=== PATIENT | female | born 1970 | race Caucasian/White ===

== ENCOUNTER 2018-06-07 18:41 | Inpatient (IN) | payer OTHER ==
[~2018-06-07] VITALS: Ht 160 cm; Wt 80.3 kg
[~2018-06-07 18:41] MED LIST: ACIPHEX 20 MG T20 MG PO; ADULT LOW DOSE81 MG PO; ALBUTEROL2.5 MG/31 INH; AMOXICILLIN 50500 M1 PO; AMOXICILLIN 50500 MG PO; AMOXICILLIN875 MG PO; ASPIR 8181 M1 PO; ASPIRIN81 M2; ATENOLOL 25 MG25 M1; ATIVAN0.5 MG; ATIVAN0.5 MG PO; ATIVAN2 MG PO; CLEOCIN100 MG VG; COUMADIN 2.5MG2.5 M1 PO; DECONGESTANT30 MG PO; FLEXERIL PO; GUAIATUSSI100 MG/5 M PO; IBUPROFEN 800800 M1 PO; IBUPROFEN 800800 MG PO; K-DUR 20 MEQ T20 MEQ PO; LISINOPRIL10 MG PO; LORAZEPAM; METHYLERGONOVI0.2 MG PO; NAPROSYN250 MG PO; NAPROSYN375 MG PO; NAPROSYN500 MG PO; OXYCODONE HCL5 M1 PO; PREDNISONE50 MG PO; PREVACID 30MG C30 M1 PG; PROVENTIL IH; RANITIDINE; ROBAXIN 750 MG750 M1 PO; TUSSIONEX PENN473 ML PO; ULTRAM 50MG TAB50 MG PO; VENTOLIN17 GM INH; VICOPROFEN 2001 EACH PO; ZANAFLEX4 M1 PO; ZANTAC 150MG T150 M1; ZPAK PO
[2018-06-07 18:53] VITALS: BP 157/95
[2018-06-07 19:18] LABS: ABSOLUTE BASOPHILS 0.1 thou/uL (0.0-0.2); ABSOLUTE EOSINOPHILS 0.1 thou/uL (0.0-0.7); ABSOLUTE LYMPHOCYTES 2.1 thou/uL (0.8-5.3); ABSOLUTE MONOCYTES 0.5 thou/uL (0.0-1.2); ABSOLUTE NEUTROPHILS 5.4 thou/uL (1.6-8.1); BASOPHILS 0.7 %; EOSINOPHILS 1.2 %; HEMATOCRIT 43.3 % (37.0-47.0); HEMOGLOBIN 14.7 gm/dL (12.0-15.0); LYMPHOCYTES 25.8 %; MCH 31.4 pg (26.0-34.0); MCV 92.5 fL (80.0-100.0); MONOCYTES 5.9 %; MPV 8.3 fl. (7.2-11.1); NUCLEATED RBCS 0 /100WBC; PLATELET COUNT* 253 thou/uL (150-400); POLYS 66.4 %; RBC 4.68 mil/uL (4.20-5.00); RDW-CV 13.2 % (10.5-14.5); WBC 8.2 thou/uL (4.0-11.0)
[2018-06-07 19:27] LABS: CALCIUM 8.5 mg/dL (8.5-10.1); CREATININE 0.9 mg/dL (0.6-1.3); POTASSIUM 3.3 mmol/L (3.5-5.1)
[2018-06-07 19:37] LABS: ALBUMIN 3.7 g/dL (3.4-5.0); MAGNESIUM 2.1 mg/dL (1.8-2.4); TOTAL BILIRUBIN 0.7 mg/dL (<0.1-1.0); TOTAL PROTEIN 7.3 g/dL (6.4-8.2); TROPONIN-I LEVEL 0.46 ng/mL (<0.06)
[2018-06-07 20:38] VITALS: BP 186/92
[2018-06-07 21:01] VITALS: BP 179/96
[2018-06-07 21:58] VITALS: BP 145/74
[2018-06-08] VITALS (19 sets, daily range): BP systolic 108–153; BP diastolic 62–87
--- NOTE | 2018-06-08 02:34 | NUR ---
RECEIVED REPORT AND ASSUMED CARE OF PATIENT FROM ER AT 2052. ADMISSION HISTORY AND ASSESSMENT COMPLETED CHARTED. BP ELEVATED UPON INITIAL CHECK, BUT ON RECHECK ONE HOUR LATER, BP WAS WNL. PATIENT ON 2L O2 NC PER CHEST PAIN PROTOCOL, SATS 98%. PATIENT A&OX4. HAD C/O CHEST DISCOMFORT RATED 2-3/10, NOT RADIATING, RELIEVED WITH ONE NITRO. PATIENT NPO FOR CARDIOLOGY CONSULT THIS AM. GOAL IS TO REMAIN FREE OF CHEST PAIN. CALL LIGHT WITHIN REACH
--- NOTE | 2018-06-08 05:11 | NUR ---
PATIENT PROGRESSING TOWARDS GOALS: PATIENT REMAINS FREE OF CHEST PAIN AND DISCOMFORT. PATIENT HAS NOT SLEPT THIS SHIFT BUT STATES SHE "STAYS UP DURING THE NIGHT AND GOES TO SLEEP AROUND 5 AM." HOURLY ROUNDING OBSERVED. CALL LIGHT WITHIN REACH
[2018-06-08 10:36] LABS: ANION GAP 10 mmol/L (7-16); BUN 8 mg/dL (7-18); CALCIUM 8.3 mg/dL (8.5-10.1); CHLORIDE 107 mmol/L (98-107); CO2 26 mmol/L (21-32); CREATININE 0.7 mg/dL (0.6-1.3); GLUCOSE 97 mg/dL (70-99); POTASSIUM 3.4 mmol/L (3.5-5.1); SODIUM 143 mmol/L (136-145)
[2018-06-08 10:37] LABS: APTT 27.6 Seconds (25.0-31.3); INR 1.1; PROTIME 10.4 Seconds (9.20-11.50)
[2018-06-08 10:43] LABS: CHOLESTEROL 226 mg/dL (<200); HDL CHOLESTEROL 35 mg/dL (>40); LDL CHOLESTEROL 147 mg/dL (<100); TC:HDL 6.5 Ratio (Not establshd); TRIGLYCERIDE 221 mg/dL (<150); VLDL 44 mg/dL (<40)
--- NOTE | 2018-06-08 10:45 | NUR ---
ASSUMED RESPONSIBILITY OF PT THIS AM PT IS ALERT AND ORIENTED ANXIOUS PLAN FOR A STENT THIS AFTERNOON SISTER AND SON AT BEDSIDE UNDERSTANDS CARE PLAN AND RESPONSIBILITIES OF PT HRR LSCTA [id number] ABD SOFT AND NONTENDER LBM T-1 DENIES ANY PAIN AT THIS TIME CALL LIGHT IN REACH UP AD SANG
[2018-06-08 10:59] LABS: SERUM ASSESSMENT Clear
--- NOTE | 2018-06-08 12:38 | NUR ---
MET WITH PT TO DISCUSS HOME SITUATION/DC PLANNING. SISTER AND SON IN ROOM ALSO. PT STATES SHE LIVES WITH SPOUSE, SON, MOM AND SISTER. SHE IS INDEPENDENT AND ACTIVE. HAS FOLLOWED WITH MARCELO PERALES BUT STATES SHE IS CONSIDERING CHANGING. PT IS UNINSURED. DISCUSSED RESOURCES AND GAVE INFO ON [facility], FIND A PHYSICIAN, DISABILITY, SCRIPT ASSIST AND COMMUNITY RESOURCES. WILL FOLLOW
--- NOTE | 2018-06-08 19:33 | EKG ---
[place] [address] ELECTROCARDIOGRAM REPORT Name: ARTIE GRANDA Room: [address] IN [facility].#: [id number] Admission: 06/07/18 Attend Phys: Rica Gao MD Discharge: Date of : 68 Report #: [id number] THIS REPORT FOR: //name// [facility] ED Test Date: 2018-06-07 Test Time: 18:51:49 Pat Name: ARTIE GRANDA Department: Room: Gender: F Submarine Diver: OVIDIO : 1970 Requested By: Jd Sow Order Number: [id number] MD: Kai Licona Measurements Intervals [place] Rate: 69 P: 19 KS: 127 QRS: -30 QRSD: 92 T: 133 QT: 404 QTc: 433 Interpretive Statements Sinus rhythm Consider left atrial enlargement Left axis deviation Repol abnrm suggests ischemia, anterolateral Compared to ECG 09/02/2015 15:56:24 Left-axis deviation now present Sinus bradycardia no longer present Possible ischemia still present Electronically Signed On 06-08-2018 19:32:41 CDT by Kai Licona [email or web address] <ELECTRONICALLY SIGNED> By: Kai Licona MD, FACC 06/08/18 193 50 50 Kai Licona MD, FAC /EPI
[2018-06-09] VITALS (8 sets, daily range): BP systolic 109–153; BP diastolic 58–86
--- NOTE | 2018-06-09 04:25 | NUR ---
PATIENT PROGRESSING TOWARDS GOALS: PATIENT AMBULATING WELL SINCE CARDIAC CATH, ALTHOUGH PATIENT DID HAVE ONE EPISODE OF DIZZINESS AND NAUSEA THE FIRST TIME AMBULATING AFTER BEDREST WAS COMPLETE. NAUSEA RELIEVED WITH PRN ZOFRAN AND PATIENT ENCOURAGED TO CALL FOR ASSISTANCE TO GO TO THE BATHROOM. PATIENT VERBALIZES UNDERSTANDING AND AGREES TO DO SO. IVF INFUSING PER ORDERS. LEFT GROIN SITE DRESSING C/D/I WITH NO SIGNS OF BLEEDING OR HEMATOMA. HOURLY ROUNDING OSBERVED. CALL LIGHT WITHIN REACH
[2018-06-09 04:27] LABS: HEMATOCRIT 38.8 % (37.0-47.0); HEMOGLOBIN 13.1 gm/dL (12.0-15.0); MCH 31.9 pg (26.0-34.0); MCHC 33.9 g/dL (28.0-37.0); MCV 94.1 fL (80.0-100.0); MPV 8.7 fl. (7.2-11.1); RBC 4.12 mil/uL (4.20-5.00); RDW-CV 13.3 % (10.5-14.5); WBC 8.6 thou/uL (4.0-11.0)
[2018-06-09 04:40] LABS: ALBUMIN 3.1 g/dL (3.4-5.0); CALCIUM 7.8 mg/dL (8.5-10.1); CREATININE 0.8 mg/dL (0.6-1.3); POTASSIUM 3.6 mmol/L (3.5-5.1); TOTAL BILIRUBIN 0.8 mg/dL (<0.1-1.0)
[2018-06-09 05:11] LABS: TROPONIN-I LEVEL 0.74 ng/mL (<0.06)
--- NOTE | 2018-06-09 05:59 | NUR ---
PATIENT BEGAN HAVING JAW PAIN UPON GETTING BACK TO BED FROM BATHROOM. PATIENT RATES PAIN 5-6/10. VSS. PATIENT DENIES SHORTNESS OF AIR, 2L O2 NC APPLIED FOR COMFORT. PATIENT ANXIOUS. ONE NITRO GIVEN.
[2018-06-09] MEDS ORDERED: BRILINTA90 MG PO (12:57)
[2018-06-09] MEDS ORDERED: NITROGLYCERIN0.4 MG SUBLING (12:58)
[2018-06-09] MEDS ORDERED: LIPITOR40 MG PO (12:58)
--- NOTE | 2018-06-09 19:02 | NUR ---
ASSUMED RESPONSIBILITY OF PT THIS AM PT COMPLAINED OF DIZZY AND LIGHT HEADEDNESS AT TIMES HGB A1C ORDERED AND BLOOD SUGARS STARTED PT DOES NOT EAT MUCH PT DOES NOT LIKE MEAT VEGGIES OR FRUITS BEER BREWER DISCUSSED WITH PT STATIN STARTED COMPLAINED OF SOME CHEST AREA PAIN COULD NOT TELL IF IT WAS ANXIETY OR PRESSSURE/PAIN LIKE PT IS VERY ANXIOUS ABOUT GOING HOME WILL LEAVE TOMORROW FAMILY AT BEDSIDE AND RESOURCES GIVEN TO PT
[2018-06-10 01:58] VITALS: BP 153/86
[2018-06-10 04:00] VITALS: BP 136/66
--- NOTE | 2018-06-10 04:12 | NUR ---
RECEIVED REPORT AND ASSUMED CARE AT 1900. VSS. CARDIAC MONITORING IN PLACE. PT DENIES ANY COMPLAINTS OF PAIN. ASSESSMENT COMPLETED CHARTED. DISCUSSED PLAN OF CARE WITH PT, VERBALIZED UNDERSTANDING. PT UP AND AMBULATING IN HALLWAY DURING SHIFT. REPORTS NO DIZZINESS WHILE UP. MEDICATION ADMIN PER EMAR. PT REPORTED HEADACHE, PRN MEDICATION ADMIN. PT UP AD SANG, ON RA. HOURLY ROUNDING COMPLETED, ALL NEEDS MET. WILL CONTINUE TO MONITOR FOR REMAIDER OF THE SHIFT
[2018-06-10 08:00] VITALS: BP 139/87
[2018-06-10 12:00] VITALS: BP 134/71
--- NOTE | 2018-06-10 13:30 | EKG ---
[place] [address] ELECTROCARDIOGRAM REPORT Name: ARTIE GRANDA Room: [place] [address] ADM IN M.R.#: [id number] Admission: 06/07/18 Attend Phys: Rica Gao MD Discharge: Date of : 68 Report #: [id number] THIS REPORT FOR: //name// [facility] Test Date: 2018-06-08 Test Time: 16:06:41 Pat Name: ARTIE GRANDA Department: Room: [place] [address] Gender: F Manager Exchange: : 1970 Requested By: Marcus Guthrie Order Number: [id number] MD: Kai Licona Measurements Intervals [place] Rate: 58 P: 26 GA: 132 QRS: -35 QRSD: 102 T: 137 QT: 486 QTc: 478 Interpretive Statements Sinus rhythm Inferior infarct, old, possible Abnrm T, consider ischemia, anterolateral lds Compared to ECG 06/07/2018 18:51:49 Myocardial infarct finding now present Left-axis deviation no longer present Early repolarization no longer present Possible ischemia still present Electronically Signed On 06-10-2018 13:29:57 CDT by Kai Licona [email or web address] <ELECTRONICALLY SIGNED> By: Kai Licona MD, FACC 06/10/18 1329 1606 1606 Kai Licona MD, FAC /EPI
--- NOTE | 2018-06-10 13:33 | EKG ---
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: [facility] : 1970 Requested By: Marcus Guthrie Order Number: [id number] MD: Kai Licona Measurements Intervals [place] Rate: 61 P: 25 CT: 136 QRS: -27 QRSD: 101 T: 149 QT: 460 QTc: 464 Interpretive Statements Sinus rhythm LVH w/ repol abnormalities, possible ischemia Compared to ECG 06/07/2018 18:51:49 Left-axis deviation no longer present Early repolarization no longer present Possible ischemia still present Electronically Signed On 06-10-2018 13:33:33 CDT by Kai Licona [email or web address] <ELECTRONICALLY SIGNED> By: Kai Licona MD, FACC 06/10/18 1333 0308 0308 Kai Licona MD, [facility] /EPI
[2018-06-10] MEDS ORDERED: SERTRALINE HCL50 MG PO (13:36)
[2018-06-10] MEDS ORDERED: ATIVAN0.5 MG PO (13:36)
[2018-06-10 14:55] VITALS: BP 153/86
--- NOTE | 2018-06-10 15:15 | NUR ---
RECEIVED REPORT FROM [facility]. ASSUMED CARE OF PT AROUND 0730. PT A&O X4, A BIT ANXIOUS BUT PLEASANT. DIRECTOR OF CORPORATE SPONSORSHIPS IN PLACE TRACING SR. AM ASSESSMENT AND VITALS COMPLETED CHARTED. IV TO RIGHT AC INFILTRATED AND WAS REMOVED. PT TREMBLING THIS AM WHILE IN BED, STATES SHE "IS WORRIED ABOUT GOING HOME AND THIS HAPPENING AGAIN". MEDICATION GIVEN FOR ANXIETY - EFFECTIVE. PT REPORTS SLIGHT LEFT-SIDE JAW PAIN, MORE LIKE GUM-PAIN - DENIES NEED FOR MEDICAITON FOR PAIN. PT DID REQUEST TO TAKE ONE NITRO PILL THIS AM, STATING "IT WILL EASE MY MIND". SISTER AND SON AT BEDSIDE SINCE THIS AM. PT SEEN BY DR ROBERTS - DISCHARGE ORDERS RECEIVED. DISCHARGE COMPLETED DOCUMENTED. DISCHARGE SUMMARY AND CARE NOTES GONE OVER WITH PT, PT COMMUNICATES UNDERSTANDING. SCRIPTS GIVEN. CARE NOTES GIVEN. EDUCATION GIVEN ON DIETARY MODIFICATION AND ADHEARING TO MEDICATION REGIMEN - PT COMMUNICATES UNDERSTANDING. PT AWARE OF FOLLOW UP APPOINTMENTS. APPOINTMENT CARDS GIVEN. DIRECTOR OF CORPORATE SPONSORSHIPS REMOVED. ALL BELONGINGS GATHERED AND READY TO SEND WITH PT. PT CURRENTLY GETTING DRESSED. LOW FALL RISK PRECAUTIONS IN PLACE. CALL LIGHT IS WITHIN REACH. HOURLY ROUNDING PERFORMED. WCTM UNTIL PT READY TO LEAVE UNIT.
[2018-06-10] MEDS ORDERED: LEVAQUIN 500 M500 MG PO (23:48)
--- NOTE | 2018-06-13 11:41 | CARD ---
[address] [address] CARDIAC CATH REPORT Name: JESUS ALBERTOARTIE F Room: [facility] IN [facility]#: [id number] Admission: 06/07/18 Attend Phys: Rica Gao MD Discharge: 06/10/18 Date of : 68 Report #: [id number] THIS REPORT FOR: //name// APPROVED REPORT Study performed: 06/08/2018 13:28:25 Patient Details Patient Status: In-Patient Room #: 227 The patient is a 47 year-old female Event Personnel Marcus Guthrie Research Engineer Marine Equipment, Keena Holley RN Appeals Representative, Antony Lopes (R) Monitor, Randy Hernandes Scrub Procedures Performed JERRY Place w/wo Plasty Single LAD, JERRY Place w/wo Plasty Single RCA [id number]; left heart catheterization left ventriculography and selective coronary arteriography Indication Non-STEMI Risk Factors Family History, Hypercholesterolemia Admission/Lab Medications/Medications given during procedure Aspirin, Platelet Aff. Inhib., Angiomax bolus and infusion Procedure Narrative The patient was brought urgently to the Cardiac Catheterization Laboratory and was prepped and draped in a sterile manner. The left femoral was infiltrated with 1% Lidocaine subcutaneous anesthesia. A [place] 6 FR sheath was inserted into the Left Femoral Artery. Coronary angiography was performed using coronary diagnostic catheters. The right coronary system was accessed and visualized with a Diagnostic JL4 catheter. The left coronary system was accessed and visualized with a Diagnostic JR4 catheter. The left ventricle was accessed and visualized with a Diagnostic Straight Pigtail catheter. Left ventricular/Aortic Valve gradient assessed via catheter pullback. Closure device was deployed with a Fr Angioseal STS 6Fr. The patient tolerated the procedure well and there were no complications associated with the procedure. [place] [address] CARDIAC CATH REPORT Name: ARTIE GRANDA Room: [address]#: [id number] Admission: 06/07/18 Attend Phys: Rica Gao MD Discharge: 06/10/18 Date of : 68 Report #: [id number] Intraoperative Conscious Sedation Sedation start time: 13:56 Case end Time: 15:22 Fentanyl 25 mcg Versed 2 mg Fluoro Time: 28.8 minutes Dose: DAP [id number] cGycm2 2607 mGy Contrast Type and Amount: Visipaque 490 ml Diagnostic Cath Left Main 0% narrowing LAD 80% proximal stenosis with 75% tubular mid vessel stenosis Diagonal 1 70% tubular first diagonal narrowing Circumflex Nondominant vessel with 60% mid vessel narrowing and 90% distal stenosis Right Coronary Dominant vessel with 90% proximal narrowing and FARTUN 2 flow to the distal vessel Left Ventriculography The left ventricle is normal in size with normal contractility. The left ventricular ejection fraction is estimated to be 65%. Left ventricular wall motion abnormalities are not present. There is no mitral insufficiency. IVUS Intravascular Ultrasound was performed on the proximal right coronary artery vessel. A Guide Catheter was used to engage the Launcher JR 4 6FR ostium. A IG: ProwaterFlex 180CM was used. IVUS Findings NC Trek RX 2.5 X 12 Hemodynamics The aortic pressure is 116/66 mmHg with a mean of 85 mmHg. The left ventricular pressure is 103/45 mmHg with a mean of mmHg. The left ventricular end diastolic pressure is 9 mmHg. There was no gradient across the aortic valve upon pullback. PCI Technique Lesion Anticoagulation was achieved with Angiomax. Patient was preloaded with Angiomax IV 12 ml. Percutaneous coronary intervention was performed on the proximal right coronary artery. The lesion stenosis prior to intervention was 90% with FARTUN 2 flow. A Launcher JR 4 6FR [place] [address] CARDIAC CATH REPORT Name: GRANDAARTIE F Room: [address]#: [id number] Admission: 06/07/18 Attend Phys: Rica Gao MD Discharge: 06/10/18 Date of : 68 Report #: [id number] Guide Catheter was used to engage the ostium. A IG: ProwaterFlex 180CM Interventional Guidewire was used to cross the lesion. BALLOON DILATION A Balloon catheter Trek RX 2.25 X 12 was inserted and inflated up to 12.00atm for 9seconds. Additional Inflation: 14.00atm for 8seconds. Additional Inflation: 14.00atm for 8seconds. STENT DEPLOYMENT A drug-eluting stent Xience Alpine RX 2.25X28 was inserted and inflated up to 14atm for 15seconds. POST STENT DEPLOYMENT BALLOON DILATION A Balloon catheter NC Trek RX 2.5 X 12 was inserted and inflated up to 15atm for 15seconds. Final angiography reveals 0 % stenosis with FARTUN 3 flow. PCI Technique Lesion Percutaneous coronary intervention was performed on the proximal right coronary artery. A Launcher JR 4 6FR Guide Catheter was used to engage the ostium. A IG: ProwaterFlex 180CM Interventional Guidewire was used to cross the lesion. BALLOON DILATION A Balloon catheter NC Trek RX 2.5 X 12 was inserted and inflated up to 14.00atm for 7seconds. Additional Inflation: 12.00atm for 6seconds. STENT DEPLOYMENT A drug-eluting stent Xience Alpine RX 2.25X28 was inserted and inflated up to 10.00atm for 9seconds. Additional Inflation: 15.00atm for 9seconds. Additional Inflation: 17.00atm for 9seconds. POST STENT DEPLOYMENT BALLOON DILATION A Balloon catheter NC Trek RX 2.5 X 12 was inserted and inflated up to 18.00atm for 7seconds. Additional Inflation: 15.00atm for 7seconds. Additional Inflation: 20.00atm for 9seconds. PCI Technique Lesion 2 Percutaneous Coronary Intervention was performed on the mid left anterior descending artery segment. Patient was preloaded with Angiomax IV 12 ml. Percutaneous coronary intervention was performed on the mid left anterior descending artery segment. The lesion stenosis prior to intervention was 75% with FARTUN 3 flow. A 6FR LAUNCHER EBU 3.5 Guide Catheter was used to engage the ostium. A IG: [place] [address] CARDIAC CATH REPORT Name: ARTIE GRANDA Room: [address] IN [place].#: [id number] Admission: 06/07/18 Attend Phys: Rica Gao MD Discharge: 06/10/18 Date of : 68 Report #: [id number] BMW 190cm Interventional Guidewire was used to cross the lesion. Balloon Dilation A Balloon catheter NC Trek RX 2.5 X 12 was inserted and inflated up to 12.00atm for 8seconds. Additional Inflation: 14.00atm for 7seconds. Additional Inflation: 14.00atm for 7seconds. Stent Deployment A drug-eluting stent Xience Alpine RX 2.5X33 was inserted and inflated up to 12.00atm for 12seconds. Additional Inflation: 14.00atm for 10seconds. Post Stent Deployment Balloon Dilation A Balloon catheter NC Trek RX 2.5 X 12 was inserted and inflated up to 15.00atm for 10seconds. Additional Inflation: 12.00atm for 6seconds. Final angiography reveals 0 % stenosis with FARTUN 3 flow. PCI Technique Lesion 3 Percutaneous Coronary Intervention was performed on the proximal left anterior descending artery segment. The lesion stenosis prior to intervention was 80% with FARTUN 3 flow. A 6FR LAUNCHER EBU 3.5 Guide Catheter was used to engage the ostium. A IG: BMW 190cm Interventional Guidewire was used to cross the lesion. Stent Deployment A drug-eluting stent Xience Alpine RX 2.75X08 was inserted and inflated up to 12.00atm for 9seconds. Additional Inflation: 15.00atm for 9seconds. Additional Inflation: 16.00atm for 9seconds. Post Stent Deployment Balloon Dilation A Balloon catheter NC Trek RX 3.0 X 8 was inserted and inflated up to 17.00atm for 8seconds. Additional Inflation: 18.00atm for 7seconds. Final angiography reveals 10 % stenosis with FARTUN 3 flow. Conclusion #1 significant coronary artery disease characterized by the following: A 80% proximal with tubular 75% [place] [address] CARDIAC CATH REPORT Name: ARTIE GRANDA Room: [address]#: [id number] Admission: 06/07/18 Attend Phys: Rica Gao MD Discharge: 06/10/18 Date of : 68 Report #: [id number] B nondominant circumflex with 60% mid and 90% distal stenosis C dominant right coronary artery with 90% proximal stenosis and FARTUN 2 flow to the distal vessel #2 normal left-sided hemodynamics study #3 normal left ventricular systolic function, estimate ejection fraction being 65% #4 successful percutaneous coronary intervention with deployment of drug-eluting stents at the size of 80% proximal and 75% tubular mid LAD stenosis with 10 and 0% residual narrowing and FARTUN-3 flow to the distal vessel #5 successful percutaneous coronary intervention with deployment of drug-eluting stent at site of 90% proximal right coronary stenosis with 0% residual narrowing and FARTUN-3 flow the distal vessel Recommendations Cardiac Risk Reduction Program Aggressive Medical Therapy Medications Administered Aspirin (any) Prasugrel Diagnostic Cath Approved by: Marcus Guthrie MD Date/Time: 06/13/18 1140 hrs. <ELECTRONICALLY SIGNED> By: Marcus Guthrie MD, FAC 06/13/18 1141 1141 1141Marcus Guthrie MD, FAC /INF
== END 2018-06-10 15:27 | disposition home or self-care (01) | DRG 247 ==
LOC: M.ERS 18:41 → M.TBA-ER 20:01 → M.2W 20:01
PROVIDERS: Emergency Medicine Emergency Medical Services; Internal Medicine; Nurse Practitioner Family; ADMIT Internal Medicine
PROC: 4A023N7 Measurement of Cardiac Sampling and Pressure, Left Heart, Percutaneous Approach (ICD-10-PCS; principal; 2018-06-08)
PROC: B2111ZZ Fluoroscopy of Multiple Coronary Arteries using Low Osmolar Contrast (ICD-10-PCS; principal; 2018-06-08)
PROC: 027136Z Dilation of Coronary Artery, Two Arteries with Three Drug-eluting Intraluminal Devices, Percutaneous Approach (ICD-10-PCS; principal; 2018-06-08)
PROC: B2151ZZ Fluoroscopy of Left Heart using Low Osmolar Contrast (ICD-10-PCS; principal; 2018-06-08)
DX: I21.4 Non-ST elevation (NSTEMI) myocardial infarction (principal); F32.9 Major depressive disorder, single episode, unspecified; I73.9 Peripheral vascular disease, unspecified; I25.10 Atherosclerotic heart disease of native coronary artery without angina pectoris; E78.5 Hyperlipidemia, unspecified; F17.210 Nicotine dependence, cigarettes, uncomplicated; F41.9 Anxiety disorder, unspecified; Z86.718 Personal history of other venous thrombosis and embolism; Z79.01 Long term (current) use of anticoagulants; Z88.6 Allergy status to analgesic agent; Z79.82 Long term (current) use of aspirin

== ENCOUNTER 2018-06-10 22:14 | Emergency (ER) | payer OTHER ==
[~2018-06-10] VITALS: Ht 160 cm; Wt 77.1 kg
[~2018-06-10 22:14] MED LIST changes: +BRILINTA90 MG PO; +LIPITOR40 MG PO; +NITROGLYCERIN0.4 MG SUBLING; +SERTRALINE HCL50 MG PO
[2018-06-10 22:47] LABS: HEMATOCRIT 39.7 % (37.0-47.0); HEMOGLOBIN 13.6 gm/dL (12.0-15.0); MCH 31.3 pg (26.0-34.0); MCHC 34.3 g/dL (28.0-37.0); MCV 91.1 fL (80.0-100.0); MPV 8.2 fl. (7.2-11.1); NUCLEATED RBCS 0 /100WBC; PLATELET COUNT* 165 thou/uL (150-400); RBC 4.36 mil/uL (4.20-5.00); RDW-CV 12.8 % (10.5-14.5); WBC 10.6 thou/uL (4.0-11.0)
[2018-06-10 22:54] LABS: CALCIUM 8.6 mg/dL (8.5-10.1); POTASSIUM 3.4 mmol/L (3.5-5.1)
[2018-06-10 22:56] LABS: APTT 28.2 Seconds (25.0-31.3); INR 1.2; PROTIME 11.3 Seconds (9.20-11.50)
[2018-06-10 22:58] LABS: ALBUMIN 3.3 g/dL (3.4-5.0); TOTAL BILIRUBIN 1.3 mg/dL (<0.1-1.0); TOTAL PROTEIN 6.7 g/dL (6.4-8.2)
[2018-06-10 23:10] LABS: URINE BLOOD 3+ (Negative); URINE CLARITY CLEAR; URINE COLOR YELLOW; URINE GLUCOSE-RANDOM NEGATIVE (Negative); URINE LEUKOCYTES-REFLEX TRACE (Negative); URINE NITRITE-REFLEX NEGATIVE (Negative); URINE PROTEIN TRACE (Negative)
[2018-06-10 23:11] LABS: URINE BILIRUBIN 1+ (Negative); URINE KETONES 3+ (Negative)
[2018-06-10 23:19] LABS: BACTERIA-REFLEX >30 Many /HPF (None Seen); CASTS None Seen /LPF (None Seen); CRYSTALS None Seen /LPF (None Seen); MUCUS 4-6 Moderate strn/LPF (None Seen); SQUAMOUS >10 Many /LPF (0-3); TRANSITIONAL EPITHEL CELL 4-10 Moderate /LPF (None Seen); URINE RBC 3-10 Few /HPF (0-2); URINE WBC-REFLEX 6-15 Few /HPF (0-5)
[2018-06-10] MEDS ORDERED: LEVAQUIN 500 M500 MG PO (23:48)
[2018-06-11 00:16] LABS: ABSOLUTE LYMPHOCYTES 0.3 thou/uL (0.8-5.3); ABSOLUTE MONOCYTES 0.4 thou/uL (0.0-1.2); ABSOLUTE NEUTROPHILS 9.9 thou/uL (1.6-8.1); ANISOCYTOSIS Occasional; PLATELET ESTIMATE ADEQUATE
[2018-06-11 00:25] VITALS: BP 106/66
[2018-06-11 01:14] LABS: ICTOTEST (BILI CONFIRMATORY) Negative (Negative)
--- NOTE | 2018-06-11 15:20 | EKG ---
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: TOM : 1970 Requested By: Giorgio Gaviria Order Number: [id number] MD: Marcus Guthrie Measurements Intervals [place] Rate: 106 P: 11 ND: 128 QRS: -28 QRSD: 88 T: 125 QT: 330 QTc: 439 Interpretive Statements Sinus tachycardia Atrial premature complex Probable left atrial enlargement LVH with secondary repolarization abnormality Compared to ECG 06/09/2018 03:08:30 Atrial premature complex(es) now present Early repolarization now present Sinus rate has increased Possible ischemia no longer present Electronically Signed On 06-11-2018 15:20:25 CDT by Marcus Guthrie [email or web address] <ELECTRONICALLY SIGNED> By: Marcus Guthrie MD, [facility] 06/11/18 1520 2244 2244 Marcus Guthrie MD, [facility] /EPI
== END 2018-06-11 00:25 | disposition home or self-care (01) ==
LOC: M.ERS 22:14
PROVIDERS: Family Medicine
DX: N39.0 Urinary tract infection, site not specified (principal); F41.9 Anxiety disorder, unspecified; F17.210 Nicotine dependence, cigarettes, uncomplicated; Z88.6 Allergy status to analgesic agent

== ENCOUNTER 2018-06-21 20:43 | Inpatient (IN) | payer OTHER ==
[~2018-06-21] VITALS: Ht 160 cm; Wt 76.2 kg
[~2018-06-21 20:43] MED LIST changes: +LEVAQUIN 500 M500 MG PO
[2018-06-21 20:47] VITALS: BP 121/85
[2018-06-21 21:59] LABS: ABSOLUTE BASOPHILS 0.1 thou/uL (0.0-0.2); ABSOLUTE EOSINOPHILS 0.1 thou/uL (0.0-0.7); ABSOLUTE LYMPHOCYTES 2.2 thou/uL (0.8-5.3); ABSOLUTE MONOCYTES 0.7 thou/uL (0.0-1.2); ABSOLUTE NEUTROPHILS 5.1 thou/uL (1.6-8.1); BASOPHILS 1.1 %; EOSINOPHILS 1.2 %; HEMATOCRIT 38.4 % (37.0-47.0); LYMPHOCYTES 26.9 %; MCH 31.1 pg (26.0-34.0); MCHC 33.8 g/dL (28.0-37.0); MCV 92.1 fL (80.0-100.0); MONOCYTES 8.2 %; MPV 8.4 fl. (7.2-11.1); NUCLEATED RBCS 0 /100WBC; PLATELET COUNT* 311 thou/uL (150-400); POLYS 62.6 %; RBC 4.17 mil/uL (4.20-5.00); RDW-CV 13.3 % (10.5-14.5); WBC 8.2 thou/uL (4.0-11.0)
[2018-06-21 22:10] LABS: ANION GAP 8 mmol/L (7-16); BUN 8 mg/dL (7-18); CALCIUM 8.8 mg/dL (8.5-10.1); CHLORIDE 106 mmol/L (98-107); CO2 26 mmol/L (21-32); GLUCOSE 91 mg/dL (70-99); POTASSIUM 3.9 mmol/L (3.5-5.1); SODIUM 140 mmol/L (136-145)
[2018-06-21 22:13] LABS: INR 1.1; PROTIME 10.7 Seconds (9.20-11.50)
[2018-06-21 22:21] LABS: ALBUMIN 3.3 g/dL (3.4-5.0); ALKALINE PHOSPHATASE 56 U/L (46-116); NT-PRO BRAIN NAT PEPTIDE 590 pg/mL (<300); SGOT 12 U/L (15-37); SGPT 14 U/L (30-65); TOTAL BILIRUBIN 0.7 mg/dL (<0.1-1.0); TOTAL PROTEIN 6.9 g/dL (6.4-8.2); TROPONIN-I LEVEL <0.06 ng/mL (<0.06)
[2018-06-21 23:27] VITALS: BP 114/72
[2018-06-21 23:49] VITALS: BP 127/80
[2018-06-22 04:00] VITALS: BP 106/63
[2018-06-22 08:00] VITALS: BP 127/66
--- NOTE | 2018-06-22 11:14 | EKG ---
[place] [address] ELECTROCARDIOGRAM REPORT Name: ARTIE GRANDA Room: [address] ADM IN .R.#: [id number] Admission: 06/21/18 Attend Phys: Jenny Conway Discharge: Date of : 68 Report #: [id number] THIS REPORT FOR: //name// [facility] ED Test Date: 2018-06-21 Test Time: 20:48:10 Pat Name: ARTIE GRANDA Department: Room: [facility] Gender: F Sugarcane Planter: : 1970 Requested By: Jelena Bautista Order Number: [id number] MD: Marcus Guthrei Measurements Intervals [place] Rate: 64 P: 36 [place]: 124 QRS: -26 QRSD: 95 T: 122 QT: 397 QTc: 410 Interpretive Statements Sinus rhythm Borderline left axis deviation Repol abnrm, prob ischemia or strain, anterolateral lds Baseline wander in lead(s) V6 Compared to ECG 06/10/2018 22:44:31 Possible ischemia now present Sinus tachycardia no longer present Atrial premature complex(es) no longer present Left ventricular hypertrophy no longer present Electronically Signed On 06-22-2018 11:14:05 CDT by Marcus Guthrie [email or web address] <ELECTRONICALLY SIGNED> By: Marcus Guthrie MD, [facility] 06/22/18 1114 47 47 Marcus Guthrie MD, [facility] /EPI
[2018-06-22 11:24] VITALS: BP 108/65
[2018-06-22] MEDS ORDERED: IMDUR 30 MG TAB30 M1 PO (13:52)
[2018-06-22 13:53] VITALS: BP 108/65
== END 2018-06-22 14:12 | disposition home or self-care (01) | DRG 303 ==
LOC: M.ERS 20:43 → M.TBA-ER 22:34 → M.2W 22:34
PROVIDERS: Emergency Medicine; ADMIT Internal Medicine
DX: I25.119 Atherosclerotic heart disease of native coronary artery with unspecified angina pectoris (principal); F32.9 Major depressive disorder, single episode, unspecified; I73.9 Peripheral vascular disease, unspecified; F41.9 Anxiety disorder, unspecified; Z88.8 Allergy status to other drugs, medicaments and biological substances; Z86.718 Personal history of other venous thrombosis and embolism; I25.2 Old myocardial infarction; Z95.5 Presence of coronary angioplasty implant and graft; Z87.891 Personal history of nicotine dependence; Z79.899 Other long term (current) drug therapy

== ENCOUNTER 2018-07-07 22:31 | Emergency (ER) | payer OTHER ==
[~2018-07-07] VITALS: Ht 233.7 cm; Wt 74.8 kg
[~2018-07-07 22:31] MED LIST changes: +IMDUR 30 MG TAB30 M1 PO
[2018-07-07 22:52] LABS: ABSOLUTE BASOPHILS 0.1 thou/uL (0.0-0.2); ABSOLUTE EOSINOPHILS 0.1 thou/uL (0.0-0.7); ABSOLUTE LYMPHOCYTES 1.9 thou/uL (0.8-5.3); ABSOLUTE MONOCYTES 0.5 thou/uL (0.0-1.2); ABSOLUTE NEUTROPHILS 5.1 thou/uL (1.6-8.1); BASOPHILS 0.8 %; EOSINOPHILS 1.3 %; HEMOGLOBIN 14.4 gm/dL (12.0-15.0); LYMPHOCYTES 25.1 %; MCH 31.6 pg (26.0-34.0); MCHC 34.3 g/dL (28.0-37.0); MCV 92.1 fL (80.0-100.0); MONOCYTES 6.8 %; NUCLEATED RBCS 0 /100WBC; PLATELET COUNT* 190 thou/uL (150-400); RBC 4.56 mil/uL (4.20-5.00); RDW-CV 13.9 % (10.5-14.5); WBC 7.8 thou/uL (4.0-11.0)
[2018-07-07 23:03] LABS: ANION GAP 9 mmol/L (7-16); BUN 8 mg/dL (7-18); CALCIUM 8.2 mg/dL (8.5-10.1); CHLORIDE 106 mmol/L (98-107); CO2 28 mmol/L (21-32); CREATININE 0.9 mg/dL (0.6-1.3); GLUCOSE 97 mg/dL (70-99); POTASSIUM 3.4 mmol/L (3.5-5.1); SODIUM 143 mmol/L (136-145)
[2018-07-07 23:07] LABS: APTT 25.3 Seconds (25.0-31.3); PROTIME 10.1 Seconds (9.20-11.50)
[2018-07-07 23:13] LABS: ALBUMIN 3.8 g/dL (3.4-5.0); ALKALINE PHOSPHATASE 57 U/L (46-116); LIPASE 119 U/L (73-393); NT-PRO BRAIN NAT PEPTIDE 700 pg/mL (<300); SGOT 16 U/L (15-37); SGPT 16 U/L (30-65); TOTAL PROTEIN 7.3 g/dL (6.4-8.2); TROPONIN-I LEVEL <0.06 ng/mL (<0.06)
[2018-07-08 01:57] VITALS: BP 124/88
--- NOTE | 2018-07-09 17:29 | EKG ---
[place] [address] ELECTROCARDIOGRAM REPORT Name: ARTIE GRANDA Room: [facility]#: [id number] Admission: 07/07/18 Attend Phys: Discharge: 07/08/18 Date of : 68 Report #: [id number] THIS REPORT FOR: //name// [facility] ED Test Date: 2018-07-07 Test Time: 22:37:29 Pat Name: ARTIE GRANDA Department: Room: Gender: F Inspector Conveyor Line: TOM : 1970 Requested By: Gertrudis Yarbrough Order Number: [id number] MD: Juan Henry Measurements Intervals [place] Rate: 79 P: 50 NC: 124 QRS: -5 QRSD: 96 T: 161 QT: 365 QTc: 419 Interpretive Statements Sinus rhythm Abnrm T, consider ischemia, anterolateral lds Compared to ECG 06/21/2018 20:48:10 Early repolarization no longer present Possible ischemia still present Electronically Signed On 07-09-2018 17:29:15 CDT by Juan Henry [email or web address] <ELECTRONICALLY SIGNED> By: Juan Henry MD, [facility] 07/09/18 1729 36 36 Juan Henry MD, [facility] /EPI
== END 2018-07-08 01:58 | disposition home or self-care (01) ==
LOC: M.ERS 22:31
PROVIDERS: Personal Emergency Response Attendant
DX: R07.89 Other chest pain (principal); N83.201 Unspecified ovarian cyst, right side; F41.9 Anxiety disorder, unspecified; F17.210 Nicotine dependence, cigarettes, uncomplicated; Z88.6 Allergy status to analgesic agent

== ENCOUNTER 2018-07-17 19:53 | Emergency (ER) | payer OTHER ==
[~2018-07-17] VITALS: Ht 160 cm; Wt 72.6 kg
[2018-07-17 20:16] LABS: ABSOLUTE EOSINOPHILS 0.1 thou/uL (0.0-0.7); ABSOLUTE LYMPHOCYTES 1.7 thou/uL (0.8-5.3); ABSOLUTE MONOCYTES 0.4 thou/uL (0.0-1.2); ABSOLUTE NEUTROPHILS 5.4 thou/uL (1.6-8.1); BASOPHILS 0.5 %; EOSINOPHILS 0.7 %; HEMATOCRIT 43.8 % (37.0-47.0); HEMOGLOBIN 14.7 gm/dL (12.0-15.0); LYMPHOCYTES 22.1 %; MCH 31.2 pg (26.0-34.0); MCHC 33.6 g/dL (28.0-37.0); MCV 92.8 fL (80.0-100.0); MONOCYTES 4.9 %; MPV 8.6 fl. (7.2-11.1); NUCLEATED RBCS 0 /100WBC; PLATELET COUNT* 242 thou/uL (150-400); POLYS 71.8 %; RBC 4.72 mil/uL (4.20-5.00); RDW-CV 13.8 % (10.5-14.5); WBC 7.6 thou/uL (4.0-11.0)
[2018-07-17 20:27] LABS: ANION GAP 9 mmol/L (7-16); BUN 10 mg/dL (7-18); CALCIUM 8.5 mg/dL (8.5-10.1); CHLORIDE 106 mmol/L (98-107); CO2 25 mmol/L (21-32); GLUCOSE 130 mg/dL (70-99); POTASSIUM 3.3 mmol/L (3.5-5.1); SODIUM 140 mmol/L (136-145)
[2018-07-17 20:29] LABS: APTT 26.1 Seconds (25.0-31.3); PROTIME 10.3 Seconds (9.20-11.50)
[2018-07-17 20:45] LABS: ALBUMIN 3.7 g/dL (3.4-5.0); ALKALINE PHOSPHATASE 57 U/L (46-116); CK-MB MASS < 0.5 ng/mL (<0.5-3.6); LIPASE 105 U/L (73-393); MAGNESIUM 2.1 mg/dL (1.8-2.4); NT-PRO BRAIN NAT PEPTIDE 654 pg/mL (<300); SGOT 12 U/L (15-37); SGPT 13 U/L (30-65); TOTAL PROTEIN 7.1 g/dL (6.4-8.2); TROPONIN-I LEVEL <0.06 ng/mL (<0.06)
[2018-07-17 21:13] VITALS: BP 144/83
--- NOTE | 2018-07-20 10:23 | EKG ---
[place] [address] ELECTROCARDIOGRAM REPORT Name: ARTIE GRANDA Room: [facility]#: [id number] Admission: 07/17/18 Attend Phys: Discharge: 07/17/18 Date of : 68 Report #: [id number] THIS REPORT FOR: //name// [facility] ED Test Date: 2018-07-17 Test Time: 20:04:00 Pat Name: ARTIE GRANDA Department: Room: Gender: F Rotor Pilot: : 1970 Requested By: Giorgio Gaviria Order Number: [id number] MD: Marcus Guthrie Measurements Intervals [place] Rate: 86 P: 18 MA: 121 QRS: -28 QRSD: 90 T: 109 QT: 350 QTc: 419 Interpretive Statements Sinus rhythm Borderline left axis deviation Repol abnrm suggests ischemia, anterolateral Compared to ECG 07/07/2018 22:37:29 Early repolarization now present Possible ischemia still present Electronically Signed On 07-20-2018 10:23:00 CDT by Marcus Guthrie [email or web address] <ELECTRONICALLY SIGNED> By: Marcus Guthrie MD, [facility] 07/20/18 1023 03 03 Marcus Guthrie MD, FAC /EPI
== END 2018-07-17 21:14 | disposition home or self-care (01) ==
LOC: M.ERS 19:53
PROVIDERS: Family Medicine
DX: R68.84 Jaw pain (principal); F17.210 Nicotine dependence, cigarettes, uncomplicated; F41.9 Anxiety disorder, unspecified; Z86.718 Personal history of other venous thrombosis and embolism; Z98.890 Other specified postprocedural states; Z88.6 Allergy status to analgesic agent

== ENCOUNTER 2018-07-29 09:24 | Inpatient (IN) | payer OTHER ==
[~2018-07-29] VITALS: Ht 160 cm; Wt 73.9 kg
[2018-07-29 09:32] VITALS: BP 168/92
[2018-07-29] MEDS ORDERED: BRILINTA90 MG PO (09:38)
[2018-07-29 09:58] LABS: ABSOLUTE BASOPHILS 0.1 thou/uL (0.0-0.2); ABSOLUTE EOSINOPHILS 0.2 thou/uL (0.0-0.7); ABSOLUTE LYMPHOCYTES 2.6 thou/uL (0.8-5.3); ABSOLUTE MONOCYTES 0.6 thou/uL (0.0-1.2); ABSOLUTE NEUTROPHILS 5.2 thou/uL (1.6-8.1); EOSINOPHILS 1.9 %; HEMATOCRIT 41.4 % (37.0-47.0); HEMOGLOBIN 13.9 gm/dL (12.0-15.0); LYMPHOCYTES 30.4 %; MCHC 33.6 g/dL (28.0-37.0); MCV 92.2 fL (80.0-100.0); MONOCYTES 7.1 %; MPV 8.9 fl. (7.2-11.1); NUCLEATED RBCS 0 /100WBC; PLATELET COUNT* 263 thou/uL (150-400); POLYS 59.6 %; RDW-CV 13.7 % (10.5-14.5); WBC 8.7 thou/uL (4.0-11.0)
[2018-07-29 10:06] LABS: ANION GAP 9 mmol/L (7-16); BUN 10 mg/dL (7-18); CALCIUM 8.3 mg/dL (8.5-10.1); CHLORIDE 107 mmol/L (98-107); CO2 26 mmol/L (21-32); CREATININE 0.8 mg/dL (0.6-1.3); GLUCOSE 102 mg/dL (70-99); POTASSIUM 3.2 mmol/L (3.5-5.1); PROTIME 10.3 Seconds (9.20-11.50); SODIUM 142 mmol/L (136-145)
[2018-07-29 10:12] LABS: ALBUMIN 3.5 g/dL (3.4-5.0); ALKALINE PHOSPHATASE 53 U/L (46-116); SGOT 17 U/L (15-37); SGPT 15 U/L (30-65); TOTAL BILIRUBIN 0.6 mg/dL (<0.1-1.0); TOTAL PROTEIN 6.9 g/dL (6.4-8.2); TROPONIN-I LEVEL <0.06 ng/mL (<0.06)
[2018-07-29 15:42] VITALS: BP 126/65
[2018-07-29 16:00] VITALS: BP 131/80; BP 138/76
--- NOTE | 2018-07-29 18:56 | EKG ---
[place] [address] ELECTROCARDIOGRAM REPORT Name: ARTIE GRANDA Room: [address] ADM IN ..#: [id number] Admission: 07/29/18 Attend Phys: Alex Thrasher MD Discharge: Date of : 68 Report #: [id number] THIS REPORT FOR: //name// [facility] ED Test Date: 2018-07-29 Test Time: 09:36:01 Pat Name: ARTIE GRANDA Department: Room: [facility] Gender: Rail Car Driver: Bridgett ROSS : 1970 Requested By: Giorgio Gaviria Order Number: [id number] MD: Jesus Alberto Akins Measurements Intervals [place] Rate: 54 P: 16 KS: 126 QRS: -23 QRSD: 101 T: 136 QT: 465 QTc: 441 Interpretive Statements Sinus bradycardia Borderline left axis deviation Repol abnrm, prob ischemia, anterolateral lds Baseline wander in lead(s) V1 Compared to ECG 07/17/2018 20:04:00 rate slowed Electronically Signed On 07-29-2018 18:56:37 CDT by Jesus Alberto Akins [email or web address] <ELECTRONICALLY SIGNED> By: Jesus Alberto Akins MD, [facility] 07/29/18 1856 0936 0936 Jesus Alberto Akins MD, [facility] /EPI
--- NOTE | 2018-07-29 19:00 | EKG ---
[place] [address] ELECTROCARDIOGRAM REPORT Name: ARTIE GRANDA Room: [address] ADM IN [facility].#: [id number] Admission: 07/29/18 Attend Phys: Alex Thrasher MD Discharge: Date of : 68 Report #: [id number] THIS REPORT FOR: //name// [facility] ED Test Date: 2018-07-29 Test Time: 13:46:26 Pat Name: ARTIE GRANDA Department: Room: [facility] Gender: Leather Craftsman: [facility] : 1970 Requested By: Giorgio Gaviria Order Number: [id number] MD: Jesus Alberto Akins Measurements Intervals [place] Rate: 46 P: 23 NE: 123 QRS: -20 QRSD: 99 T: 149 QT: 512 QTc: 448 Interpretive Statements Sinus bradycardia LVH w/ repol abnormalities, possible ischemia Electronically Signed On 07-29-2018 19:00:19 CDT by Jesus Alberto Akins [email or web address] <ELECTRONICALLY SIGNED> By: Jesus Alberto Akins MD, [facility] 07/29/18 1900 1346 Jesus Alberto Akins MD, FACC /EPI
[2018-07-29 20:18] VITALS: BP 144/69
[2018-07-30] VITALS: BP 126/72
[2018-07-30 04:00] VITALS: BP 137/78
[2018-07-30 05:28] LABS: CALCIUM 8.4 mg/dL (8.5-10.1); CREATININE 0.7 mg/dL (0.6-1.3); POTASSIUM 4.1 mmol/L (3.5-5.1)
[2018-07-30 05:29] LABS: ABSOLUTE BASOPHILS 0.1 thou/uL (0.0-0.2); ABSOLUTE EOSINOPHILS 0.1 thou/uL (0.0-0.7); ABSOLUTE MONOCYTES 0.5 thou/uL (0.0-1.2); BASOPHILS 0.9 %; HEMATOCRIT 37.7 % (37.0-47.0); HEMOGLOBIN 12.8 gm/dL (12.0-15.0); LYMPHOCYTES 30.4 %; MCH 31.6 pg (26.0-34.0); MCV 92.9 fL (80.0-100.0); MONOCYTES 7.2 %; MPV 9.4 fl. (7.2-11.1); NUCLEATED RBCS 0 /100WBC; PLATELET COUNT* 216 thou/uL (150-400); POLYS 59.5 %; RBC 4.05 mil/uL (4.20-5.00); WBC 6.7 thou/uL (4.0-11.0)
[2018-07-30 08:28] VITALS: BP 145/82
[2018-07-30] MEDS ORDERED: LOPRESSOR25 PO (10:40)
[2018-07-30 10:43] VITALS: BP 145/82
--- NOTE | 2018-08-02 13:00 | CON ---
[address] [address] CONSULTATION Name: ARTIE GRANDA Room: [address] IN M.R.#: [id number] Admission: 07/29/18 Attend Phys: Alex Thrasher MD Discharge: 07/30/18 Date of : 68 Report #: [id number] THIS REPORT FOR: //name// CC: Alex Thrasher [facility] physician/PCP DATE OF SERVICE: 07/29/2018 HISTORY OF PRESENT ILLNESS: The patient is a 47-year-old white female who I was asked to see in the hospital after she complained that her hands and feet were tingling. The patient has an extensive past medical history. She apparently presented 5 years ago with a black toe on the right foot. She was admitted to [facility] found to have PAD. She was told the artery to her right leg was occluded and she had a 50% stenosis to the left leg artery. Apparently, she did not require stenting or bypass surgery. The right toe eventually healed. Fortunately, she stopped smoking at that time. The patient then presented here to [facility] on 06/07. She complained of intermittent jaw pain as well as arm discomfort and left-sided chest pain. She was seen by my partner, Dr. Marcus Guthrie. She underwent a cardiac catheterization on 06/07 from the left femoral artery. She was found to have coronary artery disease. There was ejection fraction of 65%. She was found to have 80% narrowing of the proximal LAD, 75% stenosis of mid LAD, 70% stenosis of the diagonal, 90% stenosis of distal circumflex and 90% stenosis of the proximal right coronary artery. She then had a drug-eluting stent placed in the right coronary artery. She also had a drug-eluting stent placed in the left anterior descending artery. The patient was given Angiomax during the procedure. The patient wound up having stent placed in the proximal mid left anterior descending artery and a stent in the proximal right coronary artery. She was discharged on Brilinta and aspirin. She was readmitted 2 weeks later with chest pain. She was placed on Imdur. The patient states she has had no more jaw pain. She does go for walks. She does complain of pain in her calves after walking about a block. Today, she complains that her arms and legs started to tingle. She denied any chest pain. She has had no swelling of her arms or legs. She denied any difficulty moving her arms or legs. She actually denied any chest pain, jaw pain, shortness of breath, palpitations or syncope. She is admitted for further evaluation and treatment. PAST MEDICAL HISTORY: Significant for bladder surgery when she was 6 years old. She has a history of hyperlipidemia. No history of hypertension or diabetes. MEDICATIONS: Consists of Brilinta, aspirin, Lipitor and metoprolol. ALLERGIES: SHE HAS INTOLERANCE TO TYLENOL. FAMILY HISTORY: [place] [address] CONSULTATION Name: ARTIE GRANDA [address]: [address] [id number] Admission: 07/29/18 Attend Phys: Alex Thrasher MD Discharge: 07/30/18 Date of : 68 Report #: [id number] SOCIAL HISTORY: She is . She and her live in [place]. 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 The patient is not working and unfortunately had no medical insurance. She quit smoking 5 years ago and rarely drinks alcohol. No illicit drugs. REVIEW OF SYSTEMS: She has had no history of stroke, asthma, peptic ulcer disease, liver disease. She apparently has ovarian cysts. No kidney disease and no cancer. No psychiatric illness. PHYSICAL EXAMINATION: GENERAL: Revealed a middle-aged female lying in bed. She appeared in no acute distress. VITAL SIGNS: She had a blood pressure of 130/70, pulse 50 and she is afebrile. HEENT: She was anicteric and conjunctiva pink. Mucous membranes are moist. NECK: Veins nondistended. No carotid bruits. Neck is supple. CHEST: Clear to auscultation. CARDIOVASCULAR: Regular rate and rhythm. ABDOMEN: Soft. EXTREMITIES: Had no edema. Dorsalis pedis pulse 1+ bilaterally. SKIN: Cool and dry. NEUROLOGIC: Nonfocal. LYMPH: No adenopathy. MUSCULOSKELETAL: No joint effusion. LABORATORY DATA: Workup so far included a chest x-ray that showed mild cardiomegaly. She had a CT scan of the head today that showed no acute abnormality. Her ECG showed sinus bradycardia and nonspecific T-wave changes. Sodium 142, potassium 3.2 and creatinine 0.8. Liver function studies were normal. Troponins all 0.06. Previous cholesterol 226, triglycerides 221, HDL 35, LDL 147. Her white blood cell count 8.7 and hemoglobin 13.9. IMPRESSION AND RECOMMENDATIONS: 1. Tingling of her arms and legs. Possible neuropathy. Recommend no cardiac evaluation. 2. Recent coronary artery stents. The patient would prefer to switch from Brilinta to generic Plavix. 3. Previous tobacco abuse. 4. Peripheral arterial disease with claudication. <ELECTRONICALLY SIGNED> By: Kai Licona MD, [facility] 08/02/18 1300 1718 [id number] Peace Akins MD, FACC /nt
== END 2018-07-30 11:36 | disposition home or self-care (01) | DRG 313 ==
LOC: M.ERS 09:24 → M.TBA-ER 13:40 → M.2W 13:40
PROVIDERS: Family Medicine; ADMIT Internal Medicine
DX: R07.89 Other chest pain (principal); F41.9 Anxiety disorder, unspecified; I73.9 Peripheral vascular disease, unspecified; I25.10 Atherosclerotic heart disease of native coronary artery without angina pectoris; E78.5 Hyperlipidemia, unspecified; R20.2 Paresthesia of skin; I25.2 Old myocardial infarction; Z95.5 Presence of coronary angioplasty implant and graft; Z86.718 Personal history of other venous thrombosis and embolism; Z98.891 History of uterine scar from previous surgery; Z79.82 Long term (current) use of aspirin; Z79.899 Other long term (current) drug therapy; Z88.6 Allergy status to analgesic agent; Z87.891 Personal history of nicotine dependence

== ENCOUNTER 2018-08-16 18:54 | Inpatient (IN) | payer OTHER ==
[~2018-08-16] VITALS: Ht 162.6 cm; Wt 72.6 kg
[~2018-08-16 18:54] MED LIST changes: +LOPRESSOR25 PO
[2018-08-16 18:59] VITALS: BP 148/85
[2018-08-16 19:28] LABS: URINE BILIRUBIN NEGATIVE (Negative); URINE BLOOD NEGATIVE (Negative); URINE CLARITY CLEAR; URINE COLOR YELLOW; URINE GLUCOSE-RANDOM NEGATIVE (Negative); URINE KETONES NEGATIVE (Negative); URINE LEUKOCYTES-REFLEX NEGATIVE (Negative); URINE NITRITE-REFLEX NEGATIVE (Negative); URINE PROTEIN NEGATIVE (Negative); URINE UROBILINOGEN 0.2 E.U./dl (0.2-1.0)
[2018-08-16 19:42] LABS: ABSOLUTE BASOPHILS 0.1 thou/uL (0.0-0.2); ABSOLUTE EOSINOPHILS 0.2 thou/uL (0.0-0.7); ABSOLUTE LYMPHOCYTES 2.1 thou/uL (0.8-5.3); ABSOLUTE MONOCYTES 0.6 thou/uL (0.0-1.2); BASOPHILS 0.7 %; EOSINOPHILS 1.9 %; HEMATOCRIT 40.8 % (37.0-47.0); HEMOGLOBIN 13.6 gm/dL (12.0-15.0); LYMPHOCYTES 23.5 %; MCH 30.8 pg (26.0-34.0); MCHC 33.5 g/dL (28.0-37.0); MCV 92.1 fL (80.0-100.0); MONOCYTES 6.8 %; MPV 8.8 fl. (7.2-11.1); NUCLEATED RBCS 0 /100WBC; PLATELET COUNT* 269 thou/uL (150-400); POLYS 67.1 %; RBC 4.42 mil/uL (4.20-5.00); RDW-CV 13.6 % (10.5-14.5)
[2018-08-16 19:47] LABS: ANION GAP 4 mmol/L (7-16); BUN 8 mg/dL (7-18); CALCIUM 8.6 mg/dL (8.5-10.1); CHLORIDE 108 mmol/L (98-107); CO2 30 mmol/L (21-32); CREATININE 0.9 mg/dL (0.6-1.3); GLUCOSE 103 mg/dL (70-99); POTASSIUM 3.4 mmol/L (3.5-5.1); SODIUM 142 mmol/L (136-145)
[2018-08-16 19:54] LABS: ALBUMIN 3.4 g/dL (3.4-5.0); ALKALINE PHOSPHATASE 71 U/L (46-116); LIPASE 118 U/L (73-393); SGOT 16 U/L (15-37); SGPT 17 U/L (30-65); TOTAL BILIRUBIN 0.8 mg/dL (<0.1-1.0); TROPONIN-I LEVEL <0.06 ng/mL (<0.06)
[2018-08-16 22:20] VITALS: BP 153/90
[2018-08-16 22:30] VITALS: BP 164/68
--- NOTE | 2018-08-16 22:30 | NUR ---
PT ARRIVED TO UNIT FROM ER WITH SPOUSE AT BEDSIDE. A&O WITH NO REPORTS OF PAIN. PT STATES SHE HAS INTERMIT DISCOMFORT IN EPIGASTRIC AREA THAT IS WORSE WITH PALPATION. NSR ON MONITOR. CALL LIGHT IN REACH. WILL CONT TO MONITOR.
[2018-08-17] VITALS (18 sets, daily range): BP systolic 105–162; BP diastolic 60–87
--- NOTE | 2018-08-17 04:31 | NUR ---
END SHIFT: PT RESTED WELL. NO COMPLAINTS OVER SHIFT. REMAINS SR/SB ON MONITOR. ASSESSMENT UNCHANGED. VSS. AWATING CARDIO CONSULT. CALL LIGHT IN REACH. SAFETY PRECAUTIONS IN PLACE. PERFORMED HOURLY ROUNDING. WILL CONT TO MONITOR.
--- NOTE | 2018-08-17 08:58 | NUR ---
RECEIVED REPORT. ASSUMED CARE OF PT AT 0730. VSS. CARDIAC MONTIORING IN PLACE SB. AM ASSESSMENT AND VITALS COMPLETED CHARTED. PT ALERT AND ORIENTED X4. PT ON RA. IV SALINE LOCKED. PT DENIES ANY CHEST PAIN OR ANY OTHER PAIN THIS AM. PT NPO PENDING CARDIOLOGY CONSULT. PT UP AD SANG. PT INFORMED OF PLAN OF CARE. PT COMMUNICATES UNDERSTANDING. CALL LIGHT IS WITHIN REACH. WILL CONTINUE TO MONTIOR FOR DURATION OF SHIFT.
--- NOTE | 2018-08-17 14:52 | NUR ---
Pt out of room at label fuser tender, will f/u later
--- NOTE | 2018-08-17 15:18 | NUR ---
PT RETURNED TO FLOOR FROM METER MAKER. VSS. CARDIAC MONITORING IN PLACE. POST CATH SITE TO RIGHT GROIN DRESSING C/D/I. PT INSTRUCTED ON POST CATH INSTRUCTIONS. POND IN PLACE. PT DENIES ANY PAIN. PT'S FAMILY AT BEDSIDE. CALL LIGHT IS WITHIN REACH. WILL CONTINUE TO MONITOR FOR DURATION OF SHIFT.
--- NOTE | 2018-08-17 16:13 | EKG ---
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1970 Requested By: Ct Godinez Order Number: [id number] MD: Marcus Guthrie Measurements Intervals [place] Rate: 66 P: 24 ND: 123 QRS: -23 QRSD: 91 T: 124 QT: 395 QTc: 414 Interpretive Statements Sinus rhythm Borderline left axis deviation Abnrm T, consider ischemia, anterolateral lds Compared to ECG 07/29/2018 13:46:26 Sinus bradycardia no longer present Possible ischemia still present Electronically Signed On 08-17-2018 16:13:15 CDT by Marcus Guthrie [email or web address] <ELECTRONICALLY SIGNED> By: Marcus Guthrie MD, FACC 08/17/18 1613 17 17 Marcus Guthrie MD, [facility] /EPI
--- NOTE | 2018-08-17 16:14 | EKG ---
[place] [address] ELECTROCARDIOGRAM REPORT Name: ARTIE GRANDA Room: [address] ADM IN M.R.#: [id number] Admission: 08/17/18 Attend Phys: Puneet Cortez MD Discharge: Date of : 68 Report #: [id number] THIS REPORT FOR: //name// [facility] ED Test Date: 2018-08-16 Test Time: 21:15:30 Pat Name: ARTIE GRANDA Department: Room: [facility] [place] Gender: Ell Teacher: : 1970 Requested By: Ct Godinez Order Number: [id number] MD: Marcus Guthrie Measurements Intervals [place] Rate: 61 P: 20 SD: 128 QRS: -23 QRSD: 97 T: 128 QT: 446 QTc: 450 Interpretive Statements Sinus rhythm Borderline left axis deviation Abnrm T, consider ischemia, anterolateral lds Compared to ECG 07/29/2018 13:46:26 Sinus bradycardia no longer present Possible ischemia still present Electronically Signed On 08-17-2018 16:13:55 CDT by Marcus Guthrie [email or web address] <ELECTRONICALLY SIGNED> By: Marcus Guthrie MD, FACC 08/17/18 1613 14 14 Marcus Guthrie MD, [facility] /EPI
--- NOTE | 2018-08-17 16:15 | EKG ---
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: [facility] : 1970 Requested By: Gertrudis Yarbrough Order Number: [id number] Reading MD: Marcus Guthrie Measurements Intervals [place] Rate: 53 P: 21 ID: 119 QRS: -18 QRSD: 97 T: 143 QT: 479 QTc: 450 Interpretive Statements Sinus rhythm Borderline short ID interval Borderline left axis deviation Anteroseptal infarct, age indeterminate Lateral leads are also involved Compared to ECG 07/29/2018 13:46:26 Myocardial infarct finding now present Sinus bradycardia no longer present Possible ischemia persists Electronically Signed On 08-17-2018 16:15:33 CDT by Marcus Guthrie [email or web address] <ELECTRONICALLY SIGNED> By: Marcus Guthrie MD, FACC 08/17/18 1615 0455 0455 Marcus Guthrie MD, FAC /EPI
--- NOTE | 2018-08-17 16:19 | EKG ---
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: ADDIS : 1970 Requested By: Marcus Guthrie Order Number: [id number] Reading MD: Marcus Guthrie Measurements Intervals [place] Rate: 67 P: 39 RI: 133 QRS: -31 QRSD: 91 T: 122 QT: 445 QTc: 470 Interpretive Statements Sinus rhythm Left axis deviation Abnrm T, probable ischemia, anterolateral lds Baseline wander in lead(s) V1,V3 Compared to ECG 07/29/2018 13:46:26 Left-axis deviation now present Sinus bradycardia no longer present Possible ischemia still present Electronically Signed On 08-17-2018 16:19:45 CDT by Marcus Guthrie [email or web address] <ELECTRONICALLY SIGNED> By: Marcus Guthrie MD, FACC 08/17/18 1619 1509 1509 Marcus Guthrie MD, FACC /EPI
--- NOTE | 2018-08-17 16:52 | CARD ---
[facility] [address] [place] [address] CARDIAC CATH REPORT Name: ARTIE GRANDA Room: [address] IN .R.#: [id number] Admission: 08/17/18 Attend Phys: Puneet Cortez MD Discharge: Date of : 68 Report #: [id number] THIS REPORT FOR: //name// APPROVED REPORT Study performed: 08/17/2018 12:55:03 Patient Details Patient Status: In-Patient Room #: 201 The patient is a 47 year-old female Event Personnel Marcus Guthrie Vacuum Cooker Operator, Ashia Cohen RN Insurance Sales Supervisor, Mady Burnham Monitor, Antony Lopes (R) Scrub Procedures Performed Art Access - R femoral artery* , Selective Right and Left Coronary AngiographyLe Heart Cath w/or w/o Coronaries [id number] [facility] [address]Y [address] w/wo Plasty Single DIAG [id number] JERRY [address] w/wo Plasty Single CIRC [id number] , Left Ventriculogram Indication Non-STEMI , Chest pain Risk Factors Hypercholesterolemia Previous Procedures/Diagnoses Previous PCI Admission/Lab Medications/Medications given during procedure Aspirin, Platelet Aff. Inhib., Angiomax bolus and infusion Procedure Narrative The patient was brought electively to the Cardiac Catheterization Laboratory and was prepped and draped in a sterile manner. The right femoral was infiltrated with 2% Lidocaine subcutaneous anesthesia. A [place] 6 FR sheath was inserted into the right femoral artery. Coronary angiography was performed using coronary diagnostic catheters. The right coronary system was accessed and visualized with a 6fr JR 4 catheter. The left coronary system was accessed and visualized with a 6fr JL 4 catheter. The left ventricle was accessed and visualized with a 6fr Straight pigtail catheter. Left ventricular/Aortic Valve gradient assessed . [place] [address] CARDIAC CATH REPORT Name: ARTIE GRANDA Room: [address] IN [facility]#: [id number] Admission: 08/17/18 Attend Phys: Puneet Cortez MD Discharge: Date of : 68 Report #: [id number] performed in YANG projection. Pre-demployment femoral angiogram was performed . Closure device was deployed with a 6 Fr Angioseal STS 6Fr. The patient tolerated the procedure well and there were no complications associated with the procedure. There was no hematoma. Intraoperative Conscious Sedation Sedation start time: 13:30 Case end Time: 14:35 Fentanyl 50 mcg Versed 2 mg Fluoro Time: 15.2 minutes Dose: DAP 563230 cGycm2 1648.24 mGy Contrast Type and Amount: Visipaque 550 ml Diagnostic Cath Left Main 0% narrowing LAD Widely patent proximal and mid LAD stents with 80% proximal first diagonal stenosis Circumflex Nondominant vessel with 40% proximal and mid vessel narrowing with 90% distal stenosis and 50% narrowing of the proximal portion of the first marginal branch Right Coronary Dominant vessel with widely patent proximal stent and 40% mid vessel narrowing Left Ventriculography The left ventricle is normal in size with normal contractility. The left ventricular ejection fraction is estimated to be 65%. Left ventricular wall motion abnormalities are not present. There is no mitral insufficiency. Hemodynamics The aortic pressure is 127/68 mmHg with a mean of mmHg. The left ventricular pressure is 108/-11 mmHg with a mean of mmHg. The left ventricular end diastolic pressure is 1 mmHg. There was no gradient across the aortic valve upon pullback. PCI Technique Lesion Anticoagulation was achieved with Angiomax. Percutaneous coronary intervention was performed on the distal circumflex artery segment. The lesion stenosis prior to intervention was 90% with FARTUN 3 flow. A 6FR XB 3.0 100CM Guide Catheter was used to engage the ostium. A IG: BMW 190cm Interventional Guidewire was used to cross the lesion[place] [address] CARDIAC CATH REPORT Name: ARTIE GRANDA Afsaneh Room: [address]#: [id number] Admission: 08/17/18 Attend Phys: Puneet Cortez MD Discharge: Date of : 68 Report #: [id number] A Balloon catheter Mini Trek RX 2.0 X 12 was inserted and inflated up to 10.00atm for 11seconds. Additional Inflation: 10.00atm for 12seconds. Additional Inflation: 10.00atm for 8seconds. STENT DEPLOYMENT A drug-eluting stent Eduard RX Stent 2.0X18mm was inserted and inflated up to 10.00atm for 10seconds. Additional Inflation: 12.00atm for 9seconds. Additional Inflation: 15.00atm for 10seconds. Final angiography reveals 0 % stenosis with FARTUN 3 flow. PCI Technique Lesion 2 Percutaneous Coronary Intervention was performed on the first diagnonal branch segment. The lesion stenosis prior to intervention was 80% with FARTUN 3 flow. A 6FR XB 3.0 100CM Guide Catheter was used to engage the ostium. A IG: BMW 190cm Interventional Guidewire was used to cross the lesion. Balloon Dilation A Balloon catheter Mini Trek RX 2.0 X 8 was inserted and inflated up to 16.00atm for 13seconds. Additional Inflation: 20.00atm for 12seconds. Stent Deployment A drug-eluting stent Eduard RX Stent 2.25X8mm was inserted and inflated up to 8.00atm for 10seconds. Additional Inflation: 9.00atm for 8seconds. Additional Inflation: 11.00atm for 7seconds. Final angiography reveals 10 % stenosis with FARTUN 3 flow. Conclusion #1 significant coronary artery disease characterized by the following: A widely patent proximal and mid LAD stents with 80% proximal first diagonal stenosis B 40% proximal and midcircumflex stenosis with 90% distal stenosis and 50% narrowing of the proximal portion the first marginal branch C dominant right coronary artery with widely patent proximal stent and 40% mid vessel narrowing #2 normal left ventricular systolic function, estimated ejection [facility] [address] [place] [address] CARDIAC CATH REPORT Name: ARTIE GRANDA Room: [address] IN M.R.#: [id number] Admission: 08/17/18 Attend Phys: Puneet Cortez MD Discharge: Date of : 68 Report #: [id number] fraction 65% #3 normal left-sided hemodynamics study. 4 successful percutaneous coronary intervention with deployment of drug-eluting stent at site of 90% distal circumflex stenosis with 0% residual narrowing. #5 successful percutaneous coronary intervention with deployment of drug-eluting stent at the site of 80% proximal first diagonal stenosis with 10% residual narrowing Recommendations Cardiac Risk Reduction Program Aggressive Medical Therapy Medications Administered Aspirin (any) Ticagrelor Diagnostic Cath Approved by: Marcus Guthrie MD Date/Time: 08/17/2018 16:51:34 <ELECTRONICALLY SIGNED> By: Marcus Guthrie MD, FACC 08/17/18 165 51 51Marcus Guthrie MD, FACC /INF
--- NOTE | 2018-08-17 17:35 | NUR ---
VSS. CARDIAC MONTIORING IN PLACE WITH NO CHANGES THIS SHFIT. PT REMAINS ON RA. PT PROGRESSING TOWARDS GOALS. IVF INFUSING PER ORDERS. POST CATH SITE RIGHT GROIN REMAINS C/D/I. PT HAS NO COMPLAINTS OF PAIN. PT REMAINS ON BED REST. POND IN PLACE. PT INFORMED OF PLAN OF CARE. PT COMMUNICATES UNDERSTANDING. CALL LIGHT IS WITHIN REACH. WILL CONTINUE TO MONTIOR FOR DURATION OF SHIFT.
[2018-08-18] VITALS (8 sets, daily range): BP systolic 103–158; BP diastolic 60–89
--- NOTE | 2018-08-18 02:37 | NUR ---
ASSUMED CARE OF PATIENT AT 1900. VSS, AFEBRILE. REMAINED SUPINE UNTIL 2099. GROIN SITE DRESSING C/D/I. POND CATHETER REMOVED, PATIENT WORRIED ABOUT UTI. NO OTHER CONCERNS AT THIS TIME. PROGRESSING TOWARDS POC GOALS.
[2018-08-18 05:30] LABS: HEMATOCRIT 40.8 % (37.0-47.0); HEMOGLOBIN 13.8 gm/dL (12.0-15.0); MCH 31.3 pg (26.0-34.0); MCHC 33.7 g/dL (28.0-37.0); MCV 92.9 fL (80.0-100.0); RBC 4.39 mil/uL (4.20-5.00); RDW-CV 13.8 % (10.5-14.5); WBC 9.3 thou/uL (4.0-11.0)
[2018-08-18 05:45] LABS: ALBUMIN 3.2 g/dL (3.4-5.0); ALKALINE PHOSPHATASE 70 U/L (46-116); ANION GAP 13 mmol/L (7-16); BUN 9 mg/dL (7-18); CALCIUM 7.9 mg/dL (8.5-10.1); CHLORIDE 106 mmol/L (98-107); CHOLESTEROL 198 mg/dL (<200); CO2 23 mmol/L (21-32); CREATININE 1.1 mg/dL (0.6-1.3); GLUCOSE 87 mg/dL (70-99); HDL CHOLESTEROL 34 mg/dL (>40); LDL CHOLESTEROL 128 mg/dL (<100); MAGNESIUM 2.1 mg/dL (1.8-2.4); POTASSIUM 3.6 mmol/L (3.5-5.1); SGOT 16 U/L (15-37); SGPT 12 U/L (30-65); SODIUM 142 mmol/L (136-145); TC:HDL 5.8 Ratio (Not establshd); TOTAL BILIRUBIN 1.3 mg/dL (<0.1-1.0); TRIGLYCERIDE 183 mg/dL (<150); TROPONIN-I LEVEL 0.08 ng/mL (<0.06); VLDL 37 mg/dL (<40)
[2018-08-18 05:48] LABS: SERUM ASSESSMENT Clear
--- NOTE | 2018-08-18 09:45 | NUR ---
RECEIVED REPORT. ASSUMED CARE OF PT AT 0730. VSS. CARDIAC MONITORING IN PLACE SR. AM ASSESSMENT AND VITALS COMPLETED CHARTED. PT ALERT AND ORIENTED THIS AM. PT ON RA. IV SALINE LOCKED. PT DENIES ANY PAIN OR DISCOMFORT THIS AM. POST CATH SITE TO RIGHT GROIN C/D/I. PT UP AD SANG. DISCUSSED PLAN OF CARE WITH PT AND POSSIBLE DISCAHRGE. PT COMMUNICATES UNDERSTANDING. CALL LIGHT IS WITHIN REACH. WILL CONTINUE TO MONITOR FOR DURATION OF SHIFT.
--- NOTE | 2018-08-18 09:59 | NUR ---
Pt is A&O. Resides at home with her . Independent with ADLs. No DME. No hx of HH or SNF. Pt stated that she does not have PCP, CM provided Pt with contact info for the [facility] in [place], CM offered to arrange an appt, but Pt prefers to schedule it herself. Anticipate dc today. Sister to provide dc transportation. No needs.
[2018-08-18] MEDS ORDERED: ZOLOFT25 MG PO (10:58)
--- NOTE | 2018-08-18 12:43 | NUR ---
CARDIOLGY CAR WIPER NOTIFIED OF US RESULTS.
--- NOTE | 2018-08-18 13:00 | EKG ---
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1970 Requested By: Marcus Guthrie Order Number: [id number] Reading MD: Kai Licona Measurements Intervals [place] Rate: 57 P: 35 [place]: 120 QRS: -20 QRSD: 97 T: 134 QT: 500 QTc: 487 Interpretive Statements Sinus rhythm Borderline left axis deviation Abnrm T, probable ischemia, anterolateral lds Compared to ECG 08/17/2018 15:09:15 No significant changes Electronically Signed On 08-18-2018 13:00:01 CDT by Kai Licona [email or web address] <ELECTRONICALLY SIGNED> By: Kai Licona MD, FACC 08/18/18 1300 5 5 Kai Licona MD, [facility] /EPI
--- NOTE | 2018-08-18 18:34 | NUR ---
VSS. CARDIAC MONTIORING IN PLACE WITH NO CHANGES THIS SHIFT. PT DID HAVE COMPLAINT OF EPIGASTRIC/CHEST PAIN. PROTONIX AND NITRO GIVEN WITH RELIEF. EKG OBTAINED NO ACUTE CHANGES. PT ON RA. IV SALINE LOCKED. PT PROGRESSING TOWARDS GOALS. PT DENIES ANY OTHER PAIN. PT UP AD SANG. CALL LIGHT IS WITHIN REACH. WILL CONTINUE TO MOTNIOR FOR DURAITON OF SHIFT.
[2018-08-19] VITALS (7 sets, daily range): BP systolic 97–158; BP diastolic 57–81
--- NOTE | 2018-08-19 04:38 | NUR ---
ASSUMED CARE OF PT AFTER REPORT AT 1930. PT A&OX4. VSS. PHYSICAL ASSESSMENT COMPLETED AND CHARTED. PT ON RA WITH 99% O2 SAT. PT TRACING SR ON TELE. PT UP ADLIB TO TOILET. POST CATH SITE TO RIGHT GROIN CLEAN, DRY & INTACT. SOFT SITE. PT DENIES ANY PAIN OR DISCOMFORT.HOURLY ROUNDING OBSERVED. CALL LIGHT WITHIN REACH. BED IN LOW POSITION.
--- NOTE | 2018-08-19 11:34 | NUR ---
ASSUMED PT CARE AT 0700 PT IS ALERT AND ORIENTED X 4 PT DENIES PAIN C/O UPSET STOMACH GAVE SCHEDULED CARAFATE, PT IS UP AD SANG PT IS NOT A FALL RISK, PT WENT FOR ULTRASOUND AND BACK, PT IS SB ON THE MONITOR, PT CLEARED BY CARDIOLOGY AND VASCULAR PT STATES TOLD SHE WOULD DISCHARGE AT 1500- 1600 PT IS UNSURE WHY THIS NURSE PAGED PHYSICIAN FOR CLARIFICATION, WILL CONTINUE TO MONITOR
[2018-08-19] MEDS ORDERED: CARAFATE 1 GM TA1 G1 PO (13:08)
[2018-08-19] MEDS ORDERED: LIPITOR10 MG PO (13:08)
[2018-08-19] MEDS ORDERED: SENNA-DOCUSATE1 EACH PO (13:08)
[2018-08-19] MEDS ORDERED: NEXIUM40 MG PO (13:09)
[2018-08-19] MEDS ORDERED: PRINIVIL5 MG PO (13:09)
--- NOTE | 2018-08-19 17:24 | EKG ---
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1970 Requested By: Marcus Guthrie Order Number: [id number] MD: Marcus Guthrie Measurements Intervals [place] Rate: 64 P: 8 [place]: 123 QRS: -26 QRSD: 91 T: 125 QT: 446 QTc: 461 Interpretive Statements Sinus rhythm LVH w/ repol abnormalities, possible ischemia Compared to ECG 08/18/2018 08:06:53 No significant changes Electronically Signed On 08-19-2018 17:23:45 CDT by Marcus Guthrie [email or web address] <ELECTRONICALLY SIGNED> By: Marcus Guthrie MD, [facility] 08/19/18 1723 1627 1627 Marcus Guthrie MD, [facility] /EPI
== END 2018-08-19 15:10 | disposition home or self-care (01) | DRG 247 ==
LOC: M.ERS 18:54 → M.2W 21:07 → M.TBA-ER 21:07 → M.2W 21:29
PROVIDERS: Internal Medicine; Nurse Practitioner Family
PROC: 027135Z Dilation of Coronary Artery, Two Arteries with Two Drug-eluting Intraluminal Devices, Percutaneous Approach (ICD-10-PCS; principal; 2018-08-17)
PROC: 4A023N7 Measurement of Cardiac Sampling and Pressure, Left Heart, Percutaneous Approach (ICD-10-PCS; principal; 2018-08-17)
PROC: B2151ZZ Fluoroscopy of Left Heart using Low Osmolar Contrast (ICD-10-PCS; principal; 2018-08-17)
PROC: B2111ZZ Fluoroscopy of Multiple Coronary Arteries using Low Osmolar Contrast (ICD-10-PCS; principal; 2018-08-17)
DX: I25.110 Atherosclerotic heart disease of native coronary artery with unstable angina pectoris (principal); F41.9 Anxiety disorder, unspecified; K59.09 Other constipation; K21.9 Gastro-esophageal reflux disease without esophagitis; I70.202 Unspecified atherosclerosis of native arteries of extremities, left leg; F32.9 Major depressive disorder, single episode, unspecified; K31.9 Disease of stomach and duodenum, unspecified; K27.9 Peptic ulcer, site unspecified, unspecified as acute or chronic, without hemorrhage or perforation; F17.210 Nicotine dependence, cigarettes, uncomplicated; Z86.718 Personal history of other venous thrombosis and embolism; I25.2 Old myocardial infarction; Z95.5 Presence of coronary angioplasty implant and graft; Z98.891 History of uterine scar from previous surgery; Z79.82 Long term (current) use of aspirin; Z88.6 Allergy status to analgesic agent; Z83.3 Family history of diabetes mellitus; Z82.49 Family history of ischemic heart disease and other diseases of the circulatory system; Z80.1 Family history of malignant neoplasm of trachea, bronchus and lung

== ENCOUNTER 2018-08-21 20:13 | Inpatient (IN) | payer OTHER ==
[~2018-08-21] VITALS: Ht 160 cm; Wt 70.3 kg
--- NOTE | ~2018-08-21 | PROC ---
[address] [address] PROCEDURE REPORT Name: ARTIE GRANDA Room: [address] IN M.R.#: [id number] Admission: 08/21/18 Attend Phys: Alex Thrasher MD Discharge: 08/24/18 Date of : 68 Report #: [id number] THIS REPORT FOR: //name// For GI report, please see the Provation report in Perceptive 7 content. By: [id number] Records Staff IKE /SG
[~2018-08-21 20:13] MED LIST changes: +CARAFATE 1 GM TA1 G1 PO; +LIPITOR10 MG PO; +NEXIUM40 MG PO; +PRINIVIL5 MG PO; +SENNA-DOCUSATE1 EACH PO; +ZOLOFT25 MG PO
[2018-08-21 20:21] VITALS: BP 143/87
[2018-08-21 20:35] LABS: ABSOLUTE BASOPHILS 0.1 thou/uL (0.0-0.2); ABSOLUTE EOSINOPHILS 0.2 thou/uL (0.0-0.7); ABSOLUTE MONOCYTES 0.5 thou/uL (0.0-1.2); ABSOLUTE NEUTROPHILS 6.3 thou/uL (1.6-8.1); EOSINOPHILS 1.9 %; HEMATOCRIT 42.6 % (37.0-47.0); HEMOGLOBIN 14.2 gm/dL (12.0-15.0); LYMPHOCYTES 21.7 %; MCH 30.7 pg (26.0-34.0); MCHC 33.3 g/dL (28.0-37.0); MCV 92.4 fL (80.0-100.0); MONOCYTES 5.8 %; MPV 8.8 fl. (7.2-11.1); NUCLEATED RBCS 0 /100WBC; PLATELET COUNT* 284 thou/uL (150-400); POLYS 69.6 %; RBC 4.61 mil/uL (4.20-5.00); RDW-CV 13.3 % (10.5-14.5); WBC 9.1 thou/uL (4.0-11.0)
[2018-08-21 20:41] LABS: URINE BLOOD 3+ (Negative); URINE CLARITY CLEAR; URINE COLOR YELLOW; URINE GLUCOSE-RANDOM NEGATIVE (Negative); URINE KETONES 1+ (Negative); URINE LEUKOCYTES-REFLEX 1+ (Negative); URINE NITRITE-REFLEX NEGATIVE (Negative); URINE PROTEIN TRACE (Negative); URINE SPECIFIC GRAVITY >= 1.030 (1.005-1.030); URINE UROBILINOGEN 0.2 E.U./dl (0.2-1.0)
[2018-08-21 20:43] LABS: ICTOTEST (BILI CONFIRMATORY) Negative (Negative); URINE BILIRUBIN 1+ (Negative)
[2018-08-21 20:45] LABS: ANION GAP 10 mmol/L (7-16); BUN 9 mg/dL (7-18); CALCIUM 9.1 mg/dL (8.5-10.1); CHLORIDE 107 mmol/L (98-107); CO2 24 mmol/L (21-32); CREATININE 0.9 mg/dL (0.6-1.3); GLUCOSE 111 mg/dL (70-99); POTASSIUM 3.4 mmol/L (3.5-5.1); SODIUM 141 mmol/L (136-145)
[2018-08-21 20:47] LABS: INR 1.1; PROTIME 10.8 Seconds (9.20-11.50)
[2018-08-21 20:48] LABS: BACTERIA-REFLEX >30 Many /HPF (None Seen); CASTS None Seen /LPF (None Seen); CRYSTALS None Seen /LPF (None Seen); MUCUS 4-6 Moderate strn/LPF (None Seen); SQUAMOUS 4-10 Moderate /LPF (0-3); TRANSITIONAL EPITHEL CELL 0-3 Few /LPF (None Seen); URINE RBC 3-10 Few /HPF (0-2); URINE WBC-REFLEX 6-15 Few /HPF (0-5)
[2018-08-21 21:00] LABS: ALBUMIN 3.8 g/dL (3.4-5.0); ALKALINE PHOSPHATASE 70 U/L (46-116); LIPASE 110 U/L (73-393); NT-PRO BRAIN NAT PEPTIDE 693 pg/mL (<300); SGOT 15 U/L (15-37); SGPT 14 U/L (30-65); TOTAL BILIRUBIN 0.7 mg/dL (<0.1-1.0); TOTAL PROTEIN 7.4 g/dL (6.4-8.2); TROPONIN-I LEVEL <0.06 ng/mL (<0.06)
[2018-08-21 23:20] VITALS: BP 116/67
[2018-08-22] VITALS (7 sets, daily range): BP systolic 91–146; BP diastolic 60–84
[2018-08-22 04:30] LABS: HEMATOCRIT 36.8 % (37.0-47.0); HEMOGLOBIN 12.5 gm/dL (12.0-15.0); MCH 31.2 pg (26.0-34.0); MCV 91.7 fL (80.0-100.0); MPV 9.1 fl. (7.2-11.1); RBC 4.02 mil/uL (4.20-5.00); RDW-CV 13.7 % (10.5-14.5); WBC 6.9 thou/uL (4.0-11.0)
[2018-08-22 04:52] LABS: ALBUMIN 3.2 g/dL (3.4-5.0); CALCIUM 8.6 mg/dL (8.5-10.1); CREATININE 0.9 mg/dL (0.6-1.3); POTASSIUM 3.4 mmol/L (3.5-5.1); TOTAL BILIRUBIN 0.4 mg/dL (<0.1-1.0); TOTAL PROTEIN 5.9 g/dL (6.4-8.2)
--- NOTE | 2018-08-22 11:55 | EKG ---
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 Technician: 00 : 1970 Requested By: Jelena Bautista Order Number: [id number] MD: Juan Henry Measurements Intervals [place] Rate: 71 P: 18 [place]: 125 QRS: -25 QRSD: 92 T: 124 QT: 383 QTc: 417 Interpretive Statements Sinus rhythm Anterior Q waves, possibly due to LVH LVH w/ repol abnormalities, possible ischemia Baseline wander in lead(s) II,III,aVR,aVL,aVF,V2 Compared to ECG 08/18/2018 16:27:07 Q waves now present Possible ischemia still present Electronically Signed On 08-22-2018 11:55:37 CDT by Juan Henry [email or web address] <ELECTRONICALLY SIGNED> By: Juan Henry MD, FACC 08/22/18 1155 18 18 Juan Henry MD, FACC /EPI
[2018-08-23 03:53] VITALS: BP 103/76
[2018-08-23 08:00] VITALS: BP 127/69
[2018-08-23 11:20] VITALS: BP 109/70
[2018-08-23 15:27] VITALS: BP 113/67
[2018-08-23 20:00] VITALS: BP 109/66
[2018-08-24 00:18] VITALS: BP 93/63
[2018-08-24 04:40] VITALS: BP 108/67
[2018-08-24 08:00] VITALS: BP 122/70; BP 123/63
[2018-08-24 11:41] VITALS: BP 123/63
[2018-08-24] MEDS ORDERED: PROTONIX40 M1 PO (12:39)
--- NOTE | 2018-08-28 15:13 | CON ---
[address] [address] CONSULTATION Name: JESUS ALBERTOARTIEANDREE MCCORMICK Room: [address] IN M.R.#: [id number] Admission: 08/21/18 Attend Phys: Alex Thrasher MD Discharge: 08/24/18 Date of : 68 Report #: [id number] THIS REPORT FOR: //name// CC: Alex Thrasher [facility] physician/PCP DATE OF SERVICE: 08/22/2018 CHIEF COMPLAINT: Chest pain, abdominal pain. HISTORY OF PRESENT ILLNESS: The patient is a 47-year-old female who had a recent PCI on 08/17/2018. Since her discharge she had been feeling well, but she had a sudden onset of an epigastric discomfort in the Emergency Room. Nitroglycerin really did not help, but she was given a GI cocktail and this improved her symptoms significantly. Her presenting ECG was normal and her cardiac troponin levels are normal. In addition to the epigastric pain, she has had some sharp right-sided chest pain, which last less than a minute. She has been compliant with her Brilinta. She does not really notice that these symptoms get worse after her Brilinta. She denies orthopnea or PND. Her blood pressure is stable. She denies headaches or blurry vision. She presents in a sinus rhythm and has no complaints of palpitations, heart racing or skipping. PAST MEDICAL HISTORY: On 08/17/2018, she underwent a PCI in the setting of a non-STEMI, drug-eluting stent to a 90% distal circumflex stenosis. She also had a PCI at an 80% proximal first diagonal stenosis with a drug-eluting stent. She had previously placed stents in her LAD in the mid and proximal portions, which were normal. She has preserved LV function. She has hypertension, hyperlipidemia, peripheral vascular disease. DISCHARGE MEDICATIONS: Aspirin, Brilinta 90 mg p.o. b.i.d., Lopressor 12.5 mg p.o. b.i.d., Zoloft 25 mg daily, atorvastatin 10 mg daily, lisinopril 5 mg daily. SOCIAL HISTORY: Prior smoker, not actively. REVIEW OF SYSTEMS: GASTROINTESTINAL: No nausea, vomiting, hematemesis or melena. GENITOURINARY: No dysuria or hematuria. CARDIOVASCULAR: Positive chest pain. No palpitation, orthopnea or PND. SKIN: No edema. GENITOURINARY: No dysuria, [place] [address] CONSULTATION Name: ARTIE GRANDA Room: [address]#: [id number] Admission: 08/21/18 Attend Phys: Alex Thrasher MD Discharge: 08/24/18 Date of : 68 Report #: [id number] PHYSICAL EXAMINATION: VITAL SIGNS: Blood pressure 140s/80s, temperature is 36.6, pulse 80 in sinus rhythm, weight 155 pounds. GENERAL: Thin, middle-aged woman. She is alert, no apparent distress. HEENT: Eyes are intact. No facial asymmetry. Tongue is midline. NECK: Supple. No jugular venous distention. Upstrokes are normal. CARDIOVASCULAR: Regular, I cannot hear a murmur. LUNGS: Clear to auscultation. ABDOMEN: Soft, nontender. There is no rebound or guarding. EXTREMITIES: No peripheral edema. SKIN: Warm and dry. LABORATORY DATA: Electrocardiogram shows sinus rhythm, Q-waves in the anterior precordial leads and nonspecific T-wave inversion laterally and anterior precordial leads. Troponin I 0.06 x 3 sets. Creatinine is 0.9. Sodium is 143, potassium 3.4, chloride 108, CO2 is 27. Chest x-ray, no acute process. IMPRESSION: 1. Chest pain. Her symptoms seem a bit atypical and the fact that they are improved with a gastrointestinal cocktail makes me think this could be acid peptic disease. A GI consult is pending. She has ruled out for an acute myocardial infarction. 2. Coronary artery disease. She is status post recent percutaneous coronary intervention. I do not think this is related to Brilinta side effects. We will continue with this therapy. 3. Hypertension. Continue with medical therapy. 4. Hyperlipidemia. Continue with medical therapy. She has followup scheduled already with our nurse practitioner. She will keep this followup on discharge after her GI evaluation. <ELECTRONICALLY SIGNED> By: Juan Henry MD, FACC 08/28/18 1513 1133 2030[facility] Henry MD, FACC /nt
--- NOTE | 2018-08-31 11:22 | CON ---
[address] [address] CONSULTATION Name: ARTIE GRANDA Room: [address] IN M.R.#: [id number] Admission: 08/21/18 Attend Phys: Alex Thrasher MD Discharge: 08/24/18 Date of : 68 Report #: [id number] THIS REPORT FOR: //name// CC: Alex Thrasher [facility] physician/PCP HISTORY OF PRESENT ILLNESS: This is a pleasant 47-year-old female with past medical history significant for hypertension and coronary artery disease who has presented into the hospital with epigastric/chest pain. The patient reports the pain is located in the epigastric region and radiates upwards into the chest. The patient reports no associated dizziness, palpitations or shortness of breath. She, however, does report that the pain is somewhat similar to her pain when she had previously angina. The patient also reports symptoms of reflux, which she feels the acid in her stomach is refluxing into her throat, but she denies any difficulty swallowing. The patient reports nausea, but denies any vomiting. The patient denies any diarrhea. Has a baseline of constipation. She reports food does not make the pain worse, but makes her feel bloated. PAST MEDICAL HISTORY: The patient had non-STEMI, for which she underwent a coronary PCI with stenting and has been diagnosed with large ovarian cyst in the past. PAST SURGICAL HISTORY: The patient had a performed in the remote past, otherwise negative. FAMILY HISTORY: The patient reports her father was diagnosed with lung cancer. SOCIAL HISTORY: The patient quit smoking about 5-6 years back. Denies any significant alcohol or recreational drug use. REVIEW OF SYSTEMS: Comprehensive 10-point review of systems negative except for what is mentioned above. PHYSICAL EXAMINATION: VITAL SIGNS: Temperature 37.1, pulse rate 66, respirations 14, blood pressure 117/76, pulse ox 96% on room air. GENERAL: The patient is alert, awake, oriented times 3. Mucous membranes are moist. There is no congestion. NECK: Supple. There is no supraclavicular lymphadenopathy. HEENT: Pupils are equal, round, reactive to light and accommodation. LUNGS: Clear to auscultation bilaterally. CARDIOVASCULAR SYSTEM: Rate and rhythm regular, S1, S2. ABDOMEN: Soft. There is no distention, no tenderness, no guarding or rigidity. Obrien sign is negative. EXTREMITIES: Warm, well perfused. There is no edema. NEUROLOGIC: There is no focal neurological deficit. SKIN: [place] [address] CONSULTATION Name: ARTIE GRANDA Room: [address]#: [id number] Admission: 08/21/18 Attend Phys: Alex Thrasher MD Discharge: 08/24/18 Date of : 68 Report #: [id number] LABORATORY DATA: Hemoglobin 12.1, hematocrit 36.8, WBC count 6.9, platelets 231. Sodium 143, potassium 3.0, chloride 108, bicarbonate 27, BUN 10, creatinine 0.9, total bilirubin 0.4, AST 15, ALT 10, alkaline phosphatase 60. Troponins are negative times 3. Lipase 110. IMAGING DATA: Abdominal ultrasound: No focal hepatic lesions. No shadowing in liver or gallbladder. No biliary ductal dilatation. Pancreas is not well visualized. ASSESSMENT AND PLAN: This is a pleasant 47-year-old female, presenting with epigastric chest pain and reflux symptoms. Cardiac cause of the pain has been ruled out and there is no evidence of gallstone disease on the ultrasound. We will plan for an EGD on Friday. Resume previous diet for the patient. Further recommendations will be based on the results of esophagogastroduodenoscopy. <ELECTRONICALLY SIGNED> By: Gomez Murdock MD 08/31/18 1122 1816 [id number] Murdock MD /nt
--- NOTE | 2018-09-02 09:08 | PATH ---
[address] [address] PATHOLOGY RPT PROCEDURE Name: JADE GRANDA Room: [address] IN M.R.#: [id number] Admission: 08/21/18 Date of : 68 Discharge: 08/24/18 Report #: [id number] Path Case #: [id number] [facility] Accession Number: [id number] . 01 Material submitted: . GASTRIC BIOPSY RULE OUT H. PYLORI . 01 Clinician provided ICD-10: R07.9 N39.0 R10.9 . 01 Clinical history: . Rule out H. pylori . 02 Diagnosis: Gastric biopsy: - Normal gastric mucosa, negative for Helicobacter pylori organisms. (KANE:pit 08/25/2018) . Special stain: H. pylori immuno QTP/08/25/2018 . 02 Electronically signed: . Rony Andrew MD, Pathologist NPI- [id number] . 01 Gross description: . The specimen is received in formalin, labeled "Jade Granda, gastric BX rule out H. pylori", are three irizarry soft tissues 0.3 cm in greatest dimension each, entirely submitted in A1. (SWS; 08/24/2018) SHS/SHS . 02 Pathologist provided ICD-10: R07.9, N39.0, R10.9 . 02 CPT . 462127, Y13129 Specimen Comment: A courtesy copy of this report has been sent to Specimen Comment: [phone]. Specimen Comment: Report sent to / DR LINDO Performed at: [address] [id number] MD Rogerio Mills MD Phone: [phone] Performed at: [address] [address] PATHOLOGY RPT PROCEDURE Name: JADE GRANDA Room: [address]#: [id number] Admission: 08/21/18 Date of : 68 Discharge: 08/24/18 Report #: [id number] Path Case #: [id number] [address] [place], [place] [id number] MD Rony Andrew MD Phone: [phone]
== END 2018-08-24 13:51 | disposition home or self-care (01) | DRG 392 ==
LOC: M.ERS 20:13 → M.TBA-ER 22:23 → M.2W 22:23
PROVIDERS: Emergency Medicine; ADMIT Internal Medicine
PROC: 0DB68ZX Excision of Stomach, Via Natural or Artificial Opening Endoscopic, Diagnostic (ICD-10-PCS; principal; 2018-08-24)
DX: K29.70 Gastritis, unspecified, without bleeding (principal); N39.0 Urinary tract infection, site not specified; F41.9 Anxiety disorder, unspecified; K21.9 Gastro-esophageal reflux disease without esophagitis; K59.09 Other constipation; I25.10 Atherosclerotic heart disease of native coronary artery without angina pectoris; I10 Essential (primary) hypertension; E78.5 Hyperlipidemia, unspecified; R31.9 Hematuria, unspecified; Z95.5 Presence of coronary angioplasty implant and graft; Z98.891 History of uterine scar from previous surgery; I25.2 Old myocardial infarction; Z88.6 Allergy status to analgesic agent; Z86.718 Personal history of other venous thrombosis and embolism; Z80.1 Family history of malignant neoplasm of trachea, bronchus and lung; Z79.82 Long term (current) use of aspirin; Z79.899 Other long term (current) drug therapy; Z82.49 Family history of ischemic heart disease and other diseases of the circulatory system; Z83.3 Family history of diabetes mellitus; Z87.891 Personal history of nicotine dependence

== ENCOUNTER 2018-09-01 22:06 | Inpatient (IN) | payer OTHER ==
[~2018-09-01] VITALS: Ht 160 cm; Wt 75.6 kg
[~2018-09-01 22:06] MED LIST changes: +PROTONIX40 M1 PO
[2018-09-01 22:12] VITALS: BP 176/86
[2018-09-01 22:37] LABS: ABSOLUTE BASOPHILS 0.1 thou/uL (0.0-0.2); ABSOLUTE EOSINOPHILS 0.1 thou/uL (0.0-0.7); ABSOLUTE LYMPHOCYTES 2.4 thou/uL (0.8-5.3); ABSOLUTE MONOCYTES 0.5 thou/uL (0.0-1.2); ABSOLUTE NEUTROPHILS 5.7 thou/uL (1.6-8.1); BASOPHILS 0.8 %; EOSINOPHILS 1.3 %; HEMATOCRIT 42.6 % (37.0-47.0); HEMOGLOBIN 14.2 gm/dL (12.0-15.0); LYMPHOCYTES 27.2 %; MCHC 33.3 g/dL (28.0-37.0); MCV 92.8 fL (80.0-100.0); MONOCYTES 5.9 %; MPV 9.4 fl. (7.2-11.1); NUCLEATED RBCS 0 /100WBC; PLATELET COUNT* 282 thou/uL (150-400); POLYS 64.8 %; RBC 4.59 mil/uL (4.20-5.00); RDW-CV 14.1 % (10.5-14.5); WBC 8.8 thou/uL (4.0-11.0)
[2018-09-01 22:38] LABS: ANION GAP 8 mmol/L (7-16); BUN 9 mg/dL (7-18); CALCIUM 9.1 mg/dL (8.5-10.1); CHLORIDE 107 mmol/L (98-107); CO2 25 mmol/L (21-32); CREATININE 0.9 mg/dL (0.6-1.3); GLUCOSE 105 mg/dL (70-99); POTASSIUM 3.5 mmol/L (3.5-5.1); SODIUM 140 mmol/L (136-145)
[2018-09-01 22:44] LABS: ALBUMIN 3.6 g/dL (3.4-5.0); ALKALINE PHOSPHATASE 66 U/L (46-116); LIPASE 224 U/L (73-393); SGOT 15 U/L (15-37); SGPT 12 U/L (30-65); TOTAL BILIRUBIN 0.5 mg/dL (<0.1-1.0); TOTAL PROTEIN 7.2 g/dL (6.4-8.2); TROPONIN-I LEVEL <0.06 ng/mL (<0.06)
[2018-09-01 22:46] LABS: APTT 24.1 Seconds (25.0-31.3); PROTIME 9.9 Seconds (9.20-11.50)
[2018-09-01 23:17] LABS: URINE BILIRUBIN NEGATIVE (Negative); URINE BLOOD 1+ (Negative); URINE CLARITY CLEAR; URINE COLOR YELLOW; URINE GLUCOSE-RANDOM NEGATIVE (Negative); URINE KETONES NEGATIVE (Negative); URINE LEUKOCYTES NEGATIVE (Negative); URINE NITRITE NEGATIVE (Negative); URINE PROTEIN NEGATIVE (Negative); URINE SPECIFIC GRAVITY 1.015 (1.005-1.030); URINE UROBILINOGEN 0.2 E.U./dl (0.2-1.0)
[2018-09-01 23:59] LABS: CASTS None Seen /LPF (None Seen); SQUAMOUS >10 Many /LPF (0-3); URINE RBC 3-10 Few /HPF (0-2); URINE WBC 0-5 Rare /HPF (0-5)
[2018-09-02] LABS: CRYSTALS None Seen /LPF (None Seen)
[2018-09-02 01:15] VITALS: BP 140/76
[2018-09-02 02:15] VITALS: BP 125/76
[2018-09-02 04:00] VITALS: BP 108/52
[2018-09-02 07:30] VITALS: BP 124/66
--- NOTE | 2018-09-02 11:04 | EKG ---
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: GL : 1970 Requested By: Beatriz Doshi Order Number: [id number] MD: Marcus Guthrie Measurements Intervals [place] Rate: 61 P: 29 NC: 128 QRS: -13 QRSD: 93 T: 127 QT: 413 QTc: 416 Interpretive Statements Sinus rhythm Repol abnrm suggests ischemia, anterolateral Compared to ECG 08/21/2018 20:19:20 Early repolarization now present Left ventricular hypertrophy no longer present Q waves no longer present Possible ischemia still present Electronically Signed On 09-02-2018 11:03:46 CDT by Marcus Guthrie [email or web address] <ELECTRONICALLY SIGNED> By: Marcus Guthrie MD, FACC 09/02/18 1103 2217 2217 Marcus Guthrie MD, [facility] /EPI
--- NOTE | 2018-09-02 11:05 | EKG ---
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: : 1970 Requested By: Beatriz Doshi Order Number: [id number] Reading MD: Marcus Guthrie Measurements Intervals [place] Rate: 52 P: 24 CT: 116 QRS: -12 QRSD: 98 T: 143 QT: 495 QTc: 461 Interpretive Statements Sinus rhythm Borderline short CT interval Abnrm T, probable ischemia, anterolateral lds Compared to ECG 08/21/2018 20:19:20 Left ventricular hypertrophy no longer present Q waves no longer present Possible ischemia still present Electronically Signed On 09-02-2018 11:05:41 CDT by Marcus Guthrie [email or web address] <ELECTRONICALLY SIGNED> By: Marcus Guthrie MD, FACC 09/02/18 1105 0757 0757 Marcus Guthrie MD, [facility] /EPI
[2018-09-02 16:00] VITALS: BP 112/69
--- NOTE | 2018-09-02 17:25 | CARDNUC ---
[place] [address] CARDIAC NUCLEAR IMAGING REPORT Name: ARTIE GRANDA Room: [address] Kenneth#: [id number] Admission: 09/02/18 Attend Phys: Thu Rodriguez MD Discharge: Date of : 68 Date of Service: 09/02/18 1725 Report #: [id number] THIS REPORT FOR: //name// APPROVED REPORT Study performed: 09/02/2018 11:09:00 Indication: Chest pain Patient Location: In-Patient Room #: 210 Stress Tech: Celia Del Rosario Stress Nurse: Penny Rodriguez RN Ht: 5 ft 3 in Wt: 155 lbs BSA: 1.74 m2 BMI: 27.45 Medical History Medical History: Angina, CAD s/p IA, CAD s/p stent, HTN, Hyperlipidemia, PVD, Former Smoker Medications: ASA 81mg, Atorvastatin, Metoprolol, Brilinta Allergies: Acetaminophen, Measles vaccine live/attenuated Cardiac Risk Factors: PVD, FHX of CAD, HTN, Hyperlipidemia, Past Smoker Previous Cardiac Procedures: Myocardial infarction, PCI Pretest Chest Pain Characteristics: No chest pain Exercise History: Indeterminate Physical Disabilities: Legs, Back Meds Held (24 hrs): Metoprolol Resting Data Rest SPECT myocardial perfusion imaging was performed in supine position 30 minutes following the intravenous injection of 12.0 mCi of Tc-99m Sestamibi. Time of rest injection: 12:15 The images were gated to evaluate regional wall motion and calculate left ventricular ejection fraction. Administration Route: IV Administration Site: Left AC Pharmacologic Stress Pharmacologic stress test was performed by injecting Regadenoson 0.4 mg IV push over 10-15 seconds immediately followed by the intravenous injection of 35.4 mCi of Tc-99m Sestamibi. Time of stress injection: 13:40 Administration Route: [place] [address] CARDIAC NUCLEAR IMAGING REPORT Name: ARTIE GRANDA Room: [address]#: [id number] Admission: 09/02/18 Attend Phys: Thu Rodriguez MD Discharge: Date of : 68 Date of Service: 09/02/18 1725 Report #: [id number] Administration Site: Left AC Heart Rate at time of stress injection: 152 bpm. Gated Stress SPECT was performed 40 minutes after stress injection. The images were gated to evaluate regional wall motion and calculate left ventricular ejection fraction. Prone imaging was performed. Stress Test Details Stress Test: Pharmacologic stress was paired with low level exercise. Reason for pharmacologic stress test: physical limitation. HR Max Heart Rate (APMHR): 172 bpm Resting HR: 69 bpm Target HR (85% APMHR): 146 bpm Max HR Achieved: 152 bpm % of APMHR: 88 Recovery HR: 87 bpm BP Resting BP: 151/86 mmHg Recovery BP: 137/85 mmHg BP response to stress: Normal blood pressure response to stress. ECG Resting ECG: Sinus Rhythm Stress ECG: Sinus Tachycardia ST Change: None Arrhythmia: None Recovery ECG: Sinus Rhythm Recovery ST Change: None Recovery Arrhythmia: None Clinical Reason for Termination: Completed protocol Stress Symptoms: Weakness, Fatigue, Dyspnea Exercise duration: 3 min 59 sec Exercise capacity: 1.91 METs The patient tolerated Lexiscan infusion without significant symptoms. Nurse Comments Patient stated she could not walk on a treadmill at a fast rate or with much incline r/t SOA and generalized weakness with pain in legs and back. Patient agreed to low level treadmill [place] [address] CARDIAC NUCLEAR IMAGING REPORT Name: GRANDAARTIE FAYE Room: [address] J Luis Cooper#: [id number] Admission: 09/02/18 Attend Phys: Thu Rodriguez MD Discharge: Date of : 68 Date of Service: 09/02/18 1725 Report #: [id number] would let staff know if she needed to get off treadmill to sit. Patient tolerated four minutes on treadmill with slow speed/low incline and did exhibit SOA and complained of mild back pain which resolved in recovery while sitting. Recovery unremarkable, patient was taken by wheelchair to [facility] for images. Patient was stable at that time. Stress ECG Conclusion Baseline EKG show sinus rhythm without significant ST segment abnormality. EKGs obtained during and post Lexiscan show sinus rhythm and sinus tachycardia with no significant ST or T wave changes compared baseline. There were no significant stress-induced arrhythmias. Study Quality Study: Good Artifact: No artifact Study Data At rest, the left ventricular ejection fraction was 79%.. Post stress, the left ventricular ejection was 73%.. TID = 0.99. Perfusion Normal left ventricular perfusion. Wall Motion Normal left ventricular wall motion. Nuclear Conclusion ECG Findings: negative for ischemia Clinical Findings: negative for ischemia Nuclear Findings: negative for ischemia Exercise Capacity: not assessed Left Ventricular Function: normal Risk Study: low Myocardial perfusion images show no defect to suggest infarct or ischemia. Left ventricular systolic function appears normal on gated studies. This is a low risk study. <Conclusion> Baseline EKG show sinus rhythm without significant ST segment abnormality. EKGs obtained during and post Lexiscan show sinus rhythm and sinus tachycardia with no significant ST [place] [address] CARDIAC NUCLEAR IMAGING REPORT Name: ARTIE GRANDA Room: [address] M.R.#: [id number] Admission: 09/02/18 Attend Phys: Thu Rodriguez MD Discharge: Date of : 68 Date of Service: 09/02/18 1725 Report #: [id number] compared baseline. There were no significant stress-induced arrhythmias. <ELECTRONICALLY SIGNED> By: Kai Licona MD, FACC 09/02/181724 24 24 Kai Licona MD, FACC /INF
[2018-09-02 20:00] VITALS: BP 104/66
[2018-09-03] VITALS: BP 100/55
[2018-09-03 04:00] VITALS: BP 110/68
[2018-09-03 05:15] LABS: CALCIUM 8.7 mg/dL (8.5-10.1); CREATININE 0.8 mg/dL (0.6-1.3); POTASSIUM 3.9 mmol/L (3.5-5.1)
[2018-09-03 08:10] VITALS: BP 112/73
[2018-09-03 11:50] VITALS: BP 138/72
[2018-09-03 14:05] VITALS: BP 138/72
== END 2018-09-03 15:00 | disposition home or self-care (01) | DRG 394 ==
LOC: M.ERS 22:06 → M.2W 09-02 00:10 → M.TBA-ER 09-02 00:10 → M.2W 09-02 01:19
PROVIDERS: Nurse Practitioner Family; ADMIT Family Medicine
DX: K55.1 Chronic vascular disorders of intestine (principal); N39.0 Urinary tract infection, site not specified; R07.89 Other chest pain; F41.9 Anxiety disorder, unspecified; I25.10 Atherosclerotic heart disease of native coronary artery without angina pectoris; K80.20 Calculus of gallbladder without cholecystitis without obstruction; E78.5 Hyperlipidemia, unspecified; N83.209 Unspecified ovarian cyst, unspecified side; I73.9 Peripheral vascular disease, unspecified; K59.09 Other constipation; Z86.718 Personal history of other venous thrombosis and embolism; I25.2 Old myocardial infarction; Z95.5 Presence of coronary angioplasty implant and graft; Z88.8 Allergy status to other drugs, medicaments and biological substances; Z87.891 Personal history of nicotine dependence; Z82.49 Family history of ischemic heart disease and other diseases of the circulatory system; Z83.3 Family history of diabetes mellitus; Z79.82 Long term (current) use of aspirin; Z79.899 Other long term (current) drug therapy

== ENCOUNTER 2018-09-10 09:07 | Emergency (ER) | payer OTHER ==
[~2018-09-10] VITALS: Ht 154.9 cm; Wt 75.3 kg
[2018-09-10 09:35] LABS: ABSOLUTE EOSINOPHILS 0.1 thou/uL (0.0-0.7); ABSOLUTE LYMPHOCYTES 1.8 thou/uL (0.8-5.3); ABSOLUTE MONOCYTES 0.5 thou/uL (0.0-1.2); ABSOLUTE NEUTROPHILS 4.3 thou/uL (1.6-8.1); BASOPHILS 0.7 %; EOSINOPHILS 1.7 %; HEMATOCRIT 40.7 % (37.0-47.0); HEMOGLOBIN 13.7 gm/dL (12.0-15.0); LYMPHOCYTES 27.2 %; MCHC 33.7 g/dL (28.0-37.0); MCV 91.9 fL (80.0-100.0); MONOCYTES 6.6 %; MPV 9.2 fl. (7.2-11.1); NUCLEATED RBCS 0 /100WBC; PLATELET COUNT* 233 thou/uL (150-400); POLYS 63.8 %; RBC 4.43 mil/uL (4.20-5.00); RDW-CV 13.9 % (10.5-14.5); WBC 6.8 thou/uL (4.0-11.0)
[2018-09-10 09:44] LABS: ANION GAP 6 mmol/L (7-16); BUN 10 mg/dL (7-18); CALCIUM 9.1 mg/dL (8.5-10.1); CHLORIDE 106 mmol/L (98-107); CO2 28 mmol/L (21-32); CREATININE 0.9 mg/dL (0.6-1.3); GLUCOSE 114 mg/dL (70-99); POTASSIUM 3.5 mmol/L (3.5-5.1); SODIUM 140 mmol/L (136-145)
[2018-09-10 09:57] LABS: ALBUMIN 3.6 g/dL (3.4-5.0); ALKALINE PHOSPHATASE 77 U/L (46-116); LIPASE 148 U/L (73-393); MAGNESIUM 2.1 mg/dL (1.8-2.4); NT-PRO BRAIN NAT PEPTIDE 965 pg/mL (<300); SGOT 14 U/L (15-37); SGPT 13 U/L (30-65); TOTAL BILIRUBIN 0.9 mg/dL (<0.1-1.0); TOTAL PROTEIN 7.2 g/dL (6.4-8.2); TROPONIN-I LEVEL <0.06 ng/mL (<0.06)
[2018-09-10] MEDS ORDERED: PENICILLIN V P500 MG PO (11:46)
[2018-09-10] MEDS ORDERED: HYDROCODONE-AP1 EAC6 PO (11:48)
[2018-09-10 12:18] VITALS: BP 123/74
--- NOTE | 2018-09-10 16:38 | EKG ---
[place] [address] ELECTROCARDIOGRAM REPORT Name: GRANDAADONAYARTIE JACE Room: [facility]#: [id number] Admission: 09/10/18 Attend Phys: Discharge: 09/10/18 Date of : 68 Report #: [id number] THIS REPORT FOR: //name// [facility] ED Test Date: 2018-09-10 Test Time: 09:12:53 Pat Name: ARTIE GRANDA Department: Room: Gender: F Robotic Maintenance Technician: Bridgett CALDWELL : 1970 Requested By: Jd Sow Order Number: [id number] MD: Jesus Alberto Akins Measurements Intervals [place] Rate: 56 P: 14 [place]: 121 QRS: -16 QRSD: 96 T: 136 QT: 435 QTc: 420 Interpretive Statements Sinus bradycardia LVH w/ repol abnormalities, possible ischemia Compared to ECG 09/02/2018 07:57:38 No significant changes Electronically Signed On 09-10-2018 16:38:11 CDT by Jesus Alberto Akins [email or web address] <ELECTRONICALLY SIGNED> By: Jesus Alberto Akins MD, [facility] 09/10/18 1638 1 1 Jesus Alberto Akins MD, FACC /EPI
--- NOTE | 2018-09-10 16:41 | EKG ---
[place] [address] ELECTROCARDIOGRAM REPORT Name: ARTIE GRANDA JACE [facility]#: [id number] Admission: 09/10/18 Attend Phys: Discharge: 09/10/18 Date of : 68 Report #: [id number] THIS REPORT FOR: //name// [facility] ED Test Date: 2018-09-10 Test Time: 11:08:13 Pat Name: ARTIE GRANDA Department: Room: Gender: F Academic Specialist: Bridgett CALDWELL : 1970 Requested By: Jd Sow Order Number: [id number] Reading MD: Juan Henry Measurements Intervals [place] Rate: 48 P: 24 MD: 126 QRS: -14 QRSD: 116 T: 147 QT: 494 QTc: 442 Interpretive Statements Sinus bradycardia LVH w/ repol abnormalities, possible ischemia Compared to ECG 09/02/2018 07:57:38 Sinus rhythm no longer present Possible ischemia still present Electronically Signed On 09-10-2018 16:41:03 CDT by Juan Henry [email or web address] <ELECTRONICALLY SIGNED> By: Juan Henry MD, FACC 09/10/18 1641 1108 1108 Juan Henry MD, [facility] /EPI
--- NOTE | 2018-09-10 16:41 | EKG ---
[place] [address] ELECTROCARDIOGRAM REPORT Name: ARTIE GRANDA Room: [facility]#: [id number] Admission: 09/10/18 Attend Phys: Discharge: 09/10/18 Date of : 68 Report #: [id number] THIS REPORT FOR: //name// [facility] ED Test Date: 2018-09-10 Test Time: 11:24:35 Pat Name: ARTIE GRANDA Department: Room: Gender: F Retention Specialist: BHAVNA : 1970 Requested By: Jd Sow Order Number: [id number] MD: Juan Henry Measurements Intervals [place] Rate: 47 P: 19 [place]: 116 QRS: -19 QRSD: 96 T: 153 QT: 493 QTc: 436 Interpretive Statements Sinus bradycardia Borderline short [place] interval LVH w/ repol abnormalities, possible ischemia Compared to ECG 09/02/2018 07:57:38 Sinus rhythm no longer present Possible ischemia still present Electronically Signed On 09-10-2018 16:41:09 CDT by Juan Henry [email or web address] <ELECTRONICALLY SIGNED> By: Juan Henry MD, FAC 09/10/18 1641 1124 1124 Juan Henry MD, [facility] /EPI
--- NOTE | 2018-09-14 09:11 | CON ---
[address] [address] CONSULTATION Name: ARTIE GRANDA [facility] Kenneth#: [id number] Admission: 09/10/18 Attend Phys: Discharge: 09/10/18 Date of : 68 Report #: [id number] THIS REPORT FOR: //name// CC: SUZIE physician/PCP Jd Sow DATE OF SERVICE: 09/10/[address]: Dr[address] Marcus Guthrie. CHIEF COMPLAINT: Jaw pain. HISTORY OF PRESENT ILLNESS: The patient is a 47-year-old woman with history of coronary artery disease. She was having resting jaw pain in her right side. It mostly went away by the time she got to the Emergency Room. She did take a nitro yesterday, which improved her symptoms. She had similar symptoms. These symptoms are waxing and waning, do not occurring with shortness of breath or left-sided symptoms. She denies exertional left-sided chest pain, pressure, nausea or diaphoresis. Her presenting ECG shows LVH with hypertrophy, which is similar to prior studies and the first troponin level was 0.06. She has been compliant with medical therapy including Brilinta. She denies new symptoms of shortness of breath, orthopnea, PND, weakness or fatigue. She denies syncope, presyncope or palpitations. PAST MEDICAL HISTORY: In August, of this month, she underwent an elective PCI to a high-grade stenosis in the diagonal vessel. She has already had stents to her proximal mid LAD. She has a circumflex coronary artery, which showed a 90% distal stenosis, but this is a nondominant vessel and she has only moderate disease in her right coronary artery with a 40% mid body narrowing and a previously placed stent in the RCA, which was widely patent. She has normal LV function. She has hyperlipidemia, hypertension, asymptomatic sinus bradycardia. HOME MEDICATIONS: Atorvastatin 10 mg daily, metoprolol tartrate 12.5 mg p.o. b.i.d. She had been on Imdur, but this was discontinued after her last PCI. She did not really have side effects though. She is on Brilinta 90 mg p.o. b.i.d. and sucralfate. SOCIAL HISTORY: She has a history of tobacco use prior, but she quit more than a year ago. REVIEW OF SYSTEMS: [address] [address] CONSULTATION Name: ARTIE GRANDA Room: [facility] ELSIE Cooper#: [id number] Admission: 09/10/18 Attend Phys: Discharge: 09/10/18 Date of : 68 Report #: [id number] GENERAL: No fevers or chills. PULMONARY: No wheezing or cough. CARDIOVASCULAR: Positive neck pain. No chest pain, no orthopnea, no PND, no dyspnea with exertion, no palpitations. NEUROLOGIC: No syncope or seizures. HEMATOLOGIC: No anemia. RENAL: No history of kidney failure. GASTROINTESTINAL: No hematemesis or melena. PHYSICAL EXAMINATION: VITAL SIGNS: Blood pressure is 138/80. She is in a sinus rhythm, bradycardia, heart rate 55, O2 sats 95% on room air. GENERAL: Pleasant middle-aged woman. She is alert, in no apparent distress. HEENT: Eyes: EOMs intact. No facial asymmetry. NECK: Supple. No jugular venous distention. CARDIOVASCULAR: Regular. I could not hear a murmur. LUNGS: Clear to auscultation. ABDOMEN: Soft, nontender, nondistended. EXTREMITIES: No peripheral edema. There are no focal deficits. PSYCHIATRIC: The patient has appropriate mood and affect. Electrocardiogram shows sinus rhythm, LVH with repolarization abnormalities and chronic T-wave inversion noted on prior study. LABORATORY DATA: Hemoglobin is 13.7, white blood cell count 6.8, platelet count is 233,000. Sodium is 140, potassium 3.5, chloride is 106, CO2 is 28, BUN is 10, creatinine is 0.9, GFR is 67. Troponin I is 0.06, second set is pending. ProBNP is 965. Chest x-ray shows negative chest. IMPRESSION: 1. Jaw pain. Her symptoms are very atypical for angina. Her initial cardiac troponin level is negative and she reports no angina or chest discomfort. I think it is reasonable to check second set of troponin levels. If this is normal, she can be discharged, but I did add Imdur back, 30 mg daily along with her Brilinta. 2. Coronary artery disease. I discussed the importance of Brilinta and she has been compliant. 3. Hypertension. 4. Asymptomatic sinus bradycardia. She will arrange for followup. I instructed the patient to call for followup [address] [address] CONSULTATION Name: ARTIE GRANDA [facility] [id number] Admission: 09/10/18 Attend Phys: Discharge: 09/10/18 Date of : 68 Report #: [id number] Guthrie within the next month. Warning signs and symptoms for re-presentation to the Emergency Room were discussed with the patient. <ELECTRONICALLY SIGNED> By: Kai Licona MD, FACC 09/14/18 0911 1157 [id number] Hospitalstanley Henry MD, FACC /nt
== END 2018-09-10 12:19 | disposition home or self-care (01) ==
LOC: M.ERS 09:07
PROVIDERS: Emergency Medicine Emergency Medical Services
DX: R68.84 Jaw pain (principal); F41.9 Anxiety disorder, unspecified; Z87.891 Personal history of nicotine dependence; Z88.7 Allergy status to serum and vaccine; Z98.890 Other specified postprocedural states; Z86.718 Personal history of other venous thrombosis and embolism

== ENCOUNTER 2018-09-17 19:26 | Emergency (ER) | payer OTHER ==
[~2018-09-17] VITALS: Ht 160 cm; Wt 72.6 kg
[~2018-09-17 19:26] MED LIST changes: +HYDROCODONE-AP1 EAC6 PO; +PENICILLIN V P500 MG PO
[2018-09-17 20:45] LABS: URINE BILIRUBIN NEGATIVE (Negative); URINE BLOOD TRACE (Negative); URINE CLARITY CLEAR; URINE COLOR YELLOW; URINE GLUCOSE-RANDOM NEGATIVE (Negative); URINE KETONES NEGATIVE (Negative); URINE LEUKOCYTES-REFLEX 1+ (Negative); URINE NITRITE-REFLEX NEGATIVE (Negative); URINE PROTEIN NEGATIVE (Negative)
[2018-09-17 21:02] LABS: SQUAMOUS >10 Many /LPF (0-3)
[2018-09-17 21:03] LABS: BACTERIA-REFLEX 1-9 Few /HPF (None Seen); CASTS None Seen /LPF (None Seen); CRYSTALS None Seen /LPF (None Seen); URINE RBC 0-2 Rare /HPF (0-2); URINE WBC-REFLEX 0-5 Rare /HPF (0-5)
[2018-09-17 21:04] LABS: MUCUS None Seen strn/LPF (None Seen)
[2018-09-17 21:07] LABS: INFLUENZA A ANTIGEN None Detected (None Detect); INFLUENZA B ANTIGEN None Detected (None Detect)
[2018-09-17 21:25] VITALS: BP 148/88
== END 2018-09-17 21:25 | disposition home or self-care (01) ==
LOC: M.ERS 19:26
PROVIDERS: Nurse Practitioner Family
DX: R50.9 Fever, unspecified (principal); F41.9 Anxiety disorder, unspecified; Z87.891 Personal history of nicotine dependence; Z88.7 Allergy status to serum and vaccine; Z98.890 Other specified postprocedural states; Z86.718 Personal history of other venous thrombosis and embolism; Z95.5 Presence of coronary angioplasty implant and graft

== ENCOUNTER 2018-10-05 18:09 | Inpatient (IN) | payer OTHER ==
[~2018-10-05] VITALS: Ht 160 cm; Wt 73.0 kg
[2018-10-05 18:14] VITALS: BP 111/75
[2018-10-05 18:46] LABS: ABSOLUTE EOSINOPHILS 0.1 thou/uL (0.0-0.7); ABSOLUTE LYMPHOCYTES 1.4 thou/uL (0.8-5.3); ABSOLUTE MONOCYTES 0.5 thou/uL (0.0-1.2); ABSOLUTE NEUTROPHILS 4.4 thou/uL (1.6-8.1); BASOPHILS 0.4 %; EOSINOPHILS 1.4 %; HEMATOCRIT 39.6 % (37.0-47.0); HEMOGLOBIN 13.1 gm/dL (12.0-15.0); LYMPHOCYTES 22.2 %; MCH 30.4 pg (26.0-34.0); MONOCYTES 7.8 %; NUCLEATED RBCS 0 /100WBC; PLATELET COUNT* 209 thou/uL (150-400); POLYS 68.2 %; RDW-CV 13.7 % (10.5-14.5); WBC 6.4 thou/uL (4.0-11.0)
[2018-10-05 18:51] LABS: ANION GAP 6 mmol/L (7-16); BUN 10 mg/dL (7-18); CALCIUM 8.8 mg/dL (8.5-10.1); CHLORIDE 106 mmol/L (98-107); CO2 29 mmol/L (21-32); CREATININE 0.9 mg/dL (0.6-1.3); GLUCOSE 100 mg/dL (70-99); POTASSIUM 3.6 mmol/L (3.5-5.1); SODIUM 141 mmol/L (136-145)
[2018-10-05 18:53] LABS: APTT 25.9 Seconds (25.0-31.3)
[2018-10-05 19:02] LABS: ALBUMIN 3.2 g/dL (3.4-5.0); ALKALINE PHOSPHATASE 72 U/L (46-116); LIPASE 112 U/L (73-393); MAGNESIUM 1.9 mg/dL (1.8-2.4); NT-PRO BRAIN NAT PEPTIDE 879 pg/mL (<300); SGOT 12 U/L (15-37); SGPT 10 U/L (30-65); TOTAL BILIRUBIN 0.8 mg/dL (<0.1-1.0); TOTAL PROTEIN 6.5 g/dL (6.4-8.2); TROPONIN-I LEVEL <0.06 ng/mL (<0.06)
[2018-10-05 21:00] VITALS: BP 132/58
[2018-10-05 21:10] VITALS: BP 143/73
[2018-10-05] MEDS ORDERED: PROTONIX40 M1 PO (21:53)
[2018-10-05 23:06] VITALS: BP 127/69
[2018-10-06 00:24] LABS: AMP/METHAMP Negative (Negative); BARBITURATES Negative (Negative); BENZODIAZEPINES Negative (Negative); COCAINE Negative (Negative); METHADONE Negative (Negative); OPIATES Negative (Negative); PCP Negative (Negative); THC Negative (Negative)
[2018-10-06 04:00] VITALS: BP 128/72
--- NOTE | 2018-10-06 06:00 | NUR ---
RECEIVED REPORT FROM GLENDY QUINTEROS AT 194. PT ARRIVED TO UNIT AT 2104. PT VOICED NO CONCERNS AT START OF SHIFT. SPOUSE AT BEDSIDE. PT DENIES CHEST PAIN THIS SHIFT. CARIDAC MONITOR IN PLACE, TRACING SINUS BRADICARDIA/SINUS RHYTHM. HOURLY ROUNDING COMPLETED. CALL LIGHT WITHIN REACH. PT NPO FOR CARDIOLOGY CONSULT AND PIPIDA SCAN ORDERED. PT EDUCATED, VOICED UNDERSTANDING.
[2018-10-06 08:00] VITALS: BP 130/74
--- NOTE | 2018-10-06 09:59 | EKG ---
[place] [address] ELECTROCARDIOGRAM REPORT Name: ARTIE GRANDA Room: [address] ADM IN M.R.#: [id number] Admission: 10/05/18 Attend Phys: Thu Rodriguez MD Discharge: Date of : 68 Report #: [id number] THIS REPORT FOR: //name// [facility] ED Test Date: 2018-10-05 Test Time: 18:14:39 Pat Name: ARTIE GRANDA Department: Room: [facility] Gender: F Alternative Medicine Practitioner: RAJNI : 1970 Requested By: Jd Sow Order Number: [id number] MD: Juan Henry Measurements Intervals [place] Rate: 58 P: 22 DC: 122 QRS: -17 QRSD: 93 T: 124 QT: 393 QTc: 386 Interpretive Statements Sinus rhythm Borderline left axis deviation Abnrm T, consider ischemia, anterolateral lds Baseline wander in lead(s) II,III,aVF,V3,V4,V5,V6 Compared to ECG 09/10/2018 11:24:35 Sinus bradycardia no longer present Possible ischemia still present Electronically Signed On 10-06-2018 9:59:46 MEDICAL ONCOLOGIST by Juan Henry [email or web address] <ELECTRONICALLY SIGNED> By: Juan Henry MD, FACC 10/06/18 0959 181 13 Juan Henry MD, FACC /EPI
--- NOTE | 2018-10-06 11:46 | NUR ---
Pt known to this CM from previous hospital stay. Pt continues to live at home with her . A&O. Independent. No DME. No hx of HH or SNF. Possible dc to home today pending results of Pipida scan. No needs anticipated.
[2018-10-06 12:00] VITALS: BP 133/78
--- NOTE | 2018-10-06 13:15 | NUR ---
ASSUMED CARE OF PATIENT THIS AM AT 0730. PATIENT IS ALERT AND ORIENTED X 4. SHE DENIES PAIN THIS AM. PATIENT KEPT NPO THIS AM FOR PROCEDURES. PATIENT TAKEN TO RADIOLOGY PER W/C FOR SCAN AND LATER RETURNED TO THE ROOM. DR IN TO ROUND AND ORDERS WRITTEN. PATIENT IS TO CONSULT WITH SURGERY THIS AFTERNOON. TELE SHOWS NSR. DIET RESUMED FOR LUNCH. PATIENT ABLE TO TOLERATE MEAL WITHOUT PAIN, NAUSEA. IV FLUIDS RESUMED.
[2018-10-06 16:00] VITALS: BP 122/75; BP 132/76
[2018-10-06 20:00] VITALS: BP 130/87
--- NOTE | 2018-10-06 20:00 | NUR ---
RECEIVED REPORT AND ASSUMED CARE OF PT, ASSESSMENT COMPLETED. DENIES DISCOMFORT OR NAUSEA AT THIS TIME. TELEMETRY ON SHOWING SR. WILL CONT TO MONITOR AND ASSIST NEEDED.
[2018-10-07] VITALS: BP 118/72
[2018-10-07 04:00] VITALS: BP 111/69
--- NOTE | 2018-10-07 06:58 | NUR ---
SLEPT WELL TONIGHT. DENIES ANY DISCOMFORT. NPO SINCE MN FOR ABD US THIS AM. ASSESSMENT UNCHANGED. TELEMETRY SHOWING SR. HS GOALS OF REST AND SAFETY ACHIEVVED. HOURLY ROUNDING OBSERVED.
[2018-10-07 07:01] LABS: ABSOLUTE BASOPHILS 0.1 thou/uL (0.0-0.2); ABSOLUTE EOSINOPHILS 0.1 thou/uL (0.0-0.7); ABSOLUTE LYMPHOCYTES 1.9 thou/uL (0.8-5.3); ABSOLUTE MONOCYTES 0.6 thou/uL (0.0-1.2); ABSOLUTE NEUTROPHILS 5.5 thou/uL (1.6-8.1); EOSINOPHILS 1.2 %; HEMATOCRIT 38.8 % (37.0-47.0); LYMPHOCYTES 22.7 %; MCH 30.7 pg (26.0-34.0); MCHC 33.5 g/dL (28.0-37.0); MCV 91.5 fL (80.0-100.0); MONOCYTES 7.8 %; NUCLEATED RBCS 0 /100WBC; PLATELET COUNT* 215 thou/uL (150-400); POLYS 67.3 %; RBC 4.24 mil/uL (4.20-5.00); RDW-CV 13.5 % (10.5-14.5); WBC 8.2 thou/uL (4.0-11.0)
[2018-10-07 07:11] LABS: ALBUMIN 3.2 g/dL (3.4-5.0); CALCIUM 8.7 mg/dL (8.5-10.1); CREATININE 0.8 mg/dL (0.6-1.3); POTASSIUM 3.8 mmol/L (3.5-5.1); TOTAL PROTEIN 6.5 g/dL (6.4-8.2)
[2018-10-07 08:00] VITALS: BP 118/77
--- NOTE | 2018-10-07 09:37 | NUR ---
assumed care of patient. please see documented assessment. pt is npo for abdominal ultrasound
--- NOTE | 2018-10-07 09:38 | NUR ---
back from ultrasound. diet resumed
--- NOTE | 2018-10-07 11:54 | NUR ---
Nutrition: Consult for wt loss/poor appetite. Pt stated she lost ~15#, but per [employer], she is at her usual wt of ~160s (fluct 155-177#). Current wt 162#. Heart Healthy diet. Pt stated she ate a little today. No N/V. RD has educated pt on heart healthy and CHO controlled diet recently. Pt is a vegetarian, does not follow diet instructions. Albumin 3.2. Pt did agree to Ensure carlos - RD will order for added nutrition. Pt had no further questions/concerns. Mild risk.
[2018-10-07 12:00] VITALS: BP 103/62
[2018-10-07] MEDS ORDERED: PROTONIX40 M1 PO (13:20)
[2018-10-07 14:11] VITALS: BP 103/62
--- NOTE | 2018-10-07 14:45 | NUR ---
IV REMOVED. TELE PACK OFF. DISCHARGE EDUCATION DONE. PATIENT CANNOT ANSHUL FLU SHOT DUE TO MEASLES VACCINE ALLERGY. DISCHARGED AMBULATORY
== END 2018-10-07 14:45 | disposition home or self-care (01) | DRG 446 ==
LOC: M.ERS 18:09 → M.TBA-ER 19:09 → M.2W 19:09
PROVIDERS: Emergency Medicine Emergency Medical Services; Surgery; ADMIT Family Medicine
DX: K81.0 Acute cholecystitis (principal); I25.119 Atherosclerotic heart disease of native coronary artery with unspecified angina pectoris; F41.9 Anxiety disorder, unspecified; G89.29 Other chronic pain; R10.9 Unspecified abdominal pain; I73.9 Peripheral vascular disease, unspecified; N83.209 Unspecified ovarian cyst, unspecified side; K81.1 Chronic cholecystitis; K21.9 Gastro-esophageal reflux disease without esophagitis; Z86.718 Personal history of other venous thrombosis and embolism; I25.2 Old myocardial infarction; Z95.5 Presence of coronary angioplasty implant and graft; Z88.8 Allergy status to other drugs, medicaments and biological substances; Z88.7 Allergy status to serum and vaccine; Z83.3 Family history of diabetes mellitus; Z79.82 Long term (current) use of aspirin; Z79.899 Other long term (current) drug therapy; Z82.49 Family history of ischemic heart disease and other diseases of the circulatory system; Z80.1 Family history of malignant neoplasm of trachea, bronchus and lung

== ENCOUNTER 2018-11-23 18:01 | Observation (INO) | payer OTHER ==
[~2018-11-23] VITALS: Ht 160 cm; Wt 74.8 kg
[2018-11-23 18:08] VITALS: BP 174/93
[2018-11-23 19:09] LABS: ABSOLUTE EOSINOPHILS 0.1 thou/uL (0.0-0.7); ABSOLUTE LYMPHOCYTES 1.5 thou/uL (0.8-5.3); ABSOLUTE MONOCYTES 0.5 thou/uL (0.0-1.2); BASOPHILS 0.6 %; EOSINOPHILS 1.1 %; HEMOGLOBIN 13.1 gm/dL (12.0-15.0); LYMPHOCYTES 20.5 %; MCH 30.5 pg (26.0-34.0); MCHC 33.5 g/dL (28.0-37.0); MCV 90.9 fL (80.0-100.0); MONOCYTES 7.1 %; MPV 8.2 fl. (7.2-11.1); NUCLEATED RBCS 0 /100WBC; PLATELET COUNT* 235 thou/uL (150-400); POLYS 70.7 %; RDW-CV 13.9 % (10.5-14.5); WBC 7.1 thou/uL (4.0-11.0)
[2018-11-23 19:17] LABS: ANION GAP 6 mmol/L (7-16); BUN 11 mg/dL (7-18); CALCIUM 8.7 mg/dL (8.5-10.1); CHLORIDE 106 mmol/L (98-107); CO2 29 mmol/L (21-32); CREATININE 0.9 mg/dL (0.6-1.3); GLUCOSE 101 mg/dL (70-99); POTASSIUM 4.1 mmol/L (3.5-5.1); SODIUM 141 mmol/L (136-145)
[2018-11-23 19:20] LABS: APTT 25.9 Seconds (25.0-31.3); PROTIME 10.2 Seconds (9.20-11.50)
[2018-11-23 19:28] LABS: ALBUMIN 3.3 g/dL (3.4-5.0); ALKALINE PHOSPHATASE 92 U/L (46-116); NT-PRO BRAIN NAT PEPTIDE 619 pg/mL (<300); SGOT 20 U/L (15-37); SGPT 30 U/L (30-65); TOTAL BILIRUBIN 0.7 mg/dL (<0.1-1.0); TOTAL PROTEIN 6.6 g/dL (6.4-8.2); TROPONIN-I LEVEL <0.06 ng/mL (<0.06)
[2018-11-23 21:51] VITALS: BP 130/79
[2018-11-23 22:00] VITALS: BP 151/80
--- NOTE | 2018-11-23 22:00 | NUR ---
RECEIVED REPORT FROM ER, TO ROOM PER W/C. NO ACUTE DISTRESS. C/O NECK PAIN RADIATING INTO LT CHEST AND ARM, STATES 5/10 ON PAIN SCALE. TELEMETRY APPLIED SHOWING SB. SEE ADMISSION ASSESSMENT AND HX. WILL CONT TO MONITOR AND ASSIST NEEDED.
[2018-11-24] VITALS: BP 113/62
[2018-11-24 04:00] VITALS: BP 125/70
--- NOTE | 2018-11-24 06:28 | NUR ---
SLEPT WELL. STATES NECK STIFFNESS CONT BUT SL IMPROVED. NPO SINCE MN FOR POSS TEST TODAY. TELEMETRY SHOWING SB. HS GOALS OF REST AND SAFETY ACHIEVED. HOURLY ROUNDING OBSERVED.
[2018-11-24 08:00] VITALS: BP 143/94
--- NOTE | 2018-11-24 08:17 | NUR ---
ASSUMED PT. CARE AND RECEIVED REPORT AT 0730. PT A/OX4, VSS, MONITOR ON TRACING SR. PT. STATES NECK STIFFNESS/PAIN STILL PRESENT AT 5/10. REPORTS IT DOES GET RELIEVED WITH MOVEMENT AT TIMES. ON RA @ 93%. FULL ASSESSMENT COMPLETED, REFER TO CHARTING. PT. NPO FOR POSSIBLE TESTING TODAY, STATES UNDERSTANDING. CALL LIGHT IN REACH, WILL CONTINUE WITH PLAN OF CARE.
[2018-11-24] MEDS ORDERED: ATORVASTATIN CA40 MG PO (11:30)
[2018-11-24 12:00] VITALS: BP 134/75
--- NOTE | 2018-11-24 12:32 | NUR ---
Nutrition: Pt admitted with angina. Albumin 3.3. NPO for possible cardiac testing today. Consult for wt loss. RD familiar with pt. She used to 175# "before all this started," per pt. She stated she is thirsty today. She stated she hasn't been eating too well d/t stress. She agreed to Ensure Enlive carlos once diet advances - RD will order. Current wt: 166#. No other nutrition interventions needed at this time. Low to mild risk.
--- NOTE | 2018-11-24 15:28 | NUR ---
Pt is A&O. Resides at home with her . Known to CM from previous hospital stays. Independent. No DME. No hx of HH or SNF. Goal is home at me. Following
[2018-11-24 16:52] VITALS: BP 114/60
--- NOTE | 2018-11-24 16:56 | EKG ---
[place] [address] ELECTROCARDIOGRAM REPORT Name: ARTIE GRANDA Room: [address] M.R.#: [id number] Admission: 11/23/18 Attend Phys: Nakul Mann Discharge: Date of : 68 Report #: [id number] THIS REPORT FOR: //name// [facility] ED Test Date: 2018-11-23 Test Time: 18:09:49 Pat Name: ARTIE GRANDA Department: Room: [facility] Gender: F [employer] Assembly Line Worker: NATASHA : 1970 Requested By: Beatriz Doshi Order Number: [id number] MD: Kai Licona Measurements Intervals [place] Rate: 61 P: 26 MN: 126 QRS: -23 QRSD: 95 T: 126 QT: 423 QTc: 426 Interpretive Statements Sinus rhythm Borderline left axis deviation Abnrm T, consider ischemia, anterolateral lds Compared to ECG 10/05/2018 18:14:39 No significant changes Electronically Signed On 11-24-2018 16:56:21 IT PROGRAM MANAGER by Kai Licona [email or web address] <ELECTRONICALLY SIGNED> By: Kai Licona MD, FACC 11/24/18 1656 1809 1809 Kai Licona MD, [facility] /EPI
--- NOTE | 2018-11-24 17:02 | EKG ---
[place] [address] ELECTROCARDIOGRAM REPORT Name: ARTIE GRANDA Room: [address] M.R.#: [id number] Admission: 11/23/18 Attend Phys: Nakul Mann Discharge: Date of : 68 Report #: [id number] THIS REPORT FOR: //name// [facility] Test Date: 2018-11-24 Test Time: 08:38:26 Pat Name: ARTIE GRANDA Department: Room: [address] Gender: F Geek Squad Manager: : 1970 Requested By: Jd Sow Order Number: [id number] MD: Kai Licona Measurements Intervals [place] Rate: 57 P: 28 [place]: 126 QRS: -19 QRSD: 99 T: 126 QT: 453 QTc: 441 Interpretive Statements Sinus rhythm Borderline left axis deviation Abnrm T, consider ischemia, anterolateral lds Compared to ECG 10/05/2018 18:14:39 No significant changes Electronically Signed On 11-24-2018 17:01:53 AUDIO TECHNICIAN by Kai Lciona [email or web address] <ELECTRONICALLY SIGNED> By: Kai Licona MD, [facility] 11/24/18 1701 Kai Licona MD, [facility] /EPI
[2018-11-24 19:30] VITALS: BP 124/83
--- NOTE | 2018-11-24 19:33 | NUR ---
PT. STABLE THROUGH OUT SHIFT. UP IN ROOM ADLIB. POOR APPETITE. PT. REPORTED PAIN RELIEF WITH MUSCLE RELAXER. HOURLY ROUNDING COMPLETED THROUGH OUT THE DAY FOR PT. SAFETY.
[2018-11-25] VITALS: BP 100/65
[2018-11-25 04:00] VITALS: BP 110/68
--- NOTE | 2018-11-25 05:25 | NUR ---
VITALS WNL. SEE MAR. SEE CHARTING. HOURLY ROUNDING FOR SAFETY.
[2018-11-25 05:46] LABS: CHOLESTEROL 163 mg/dL (<200); HDL CHOLESTEROL 41 mg/dL (>40); LDL CHOLESTEROL 93 mg/dL (<100); TRIGLYCERIDE 146 mg/dL (<150); VLDL 29 mg/dL (<40)
[2018-11-25 05:52] LABS: SERUM ASSESSMENT Clear
--- NOTE | 2018-11-25 07:15 | NUR ---
CHANGE OF SHIFT BEDSIDE REPORT GIVEN PATIENT SEEN AT BEDSIDE, IN BED RESTING ASSUMED PATIENT CARE
[2018-11-25 08:00] VITALS: BP 120/68
[2018-11-25 12:01] VITALS: BP 120/74
[2018-11-25] MEDS ORDERED: FLEXERIL PO (13:34)
[2018-11-25 14:49] VITALS: BP 120/74
--- NOTE | 2018-11-25 15:11 | NUR ---
PATIENT DISCHARGED TO HOME ALL DC INSTRUCTIONS GIVEN, ACKNOWLEDGED, SIGNED COPIES GIVEN IV AND HEART MONITOR REMOVED PERSONAL BELONGINGS RETURNED PATIENT ESCORTED OUT TO WAITING CAR
== END 2018-11-25 15:14 | disposition home or self-care (01) ==
LOC: M.ERS 18:01 → M.TBA-ER 20:06 → M.2W 20:06
PROVIDERS: Family Medicine; Nurse Practitioner Family; ADMIT Internal Medicine
DX: S16.1XXA Strain of muscle, fascia and tendon at neck level, initial encounter (principal); K81.1 Chronic cholecystitis; N83.209 Unspecified ovarian cyst, unspecified side; I70.213 Atherosclerosis of native arteries of extremities with intermittent claudication, bilateral legs; I25.10 Atherosclerotic heart disease of native coronary artery without angina pectoris; I10 Essential (primary) hypertension; R07.89 Other chest pain; Z87.891 Personal history of nicotine dependence; Z95.5 Presence of coronary angioplasty implant and graft; Z79.899 Other long term (current) drug therapy; X58.XXXA Exposure to other specified factors, initial encounter; Y93.89 Activity, other specified; Y92.89 Other specified places as the place of occurrence of the external cause

== ENCOUNTER 2019-02-11 23:08 | Emergency (ER) | payer OTHER ==
[~2019-02-11] VITALS: Ht 160 cm; Wt 77.1 kg
[~2019-02-11 23:08] MED LIST changes: +ATORVASTATIN CA40 MG PO
[2019-02-12 00:40] VITALS: BP 127/70
== END 2019-02-12 00:40 | disposition home or self-care (01) ==
LOC: M.ERS 23:08
DX: S80.01XA Contusion of right knee, initial encounter (principal); F41.9 Anxiety disorder, unspecified; F32.9 Major depressive disorder, single episode, unspecified; I10 Essential (primary) hypertension; E78.5 Hyperlipidemia, unspecified; Z87.891 Personal history of nicotine dependence; Z88.6 Allergy status to analgesic agent; Z88.7 Allergy status to serum and vaccine; Z98.890 Other specified postprocedural states; Z95.5 Presence of coronary angioplasty implant and graft; W18.2XXA Fall in (into) shower or empty bathtub, initial encounter; Y92.002 Bathroom of unspecified non-institutional (private) residence as the place of occurrence of the external cause; Y93.E1 Activity, personal bathing and showering; Y99.8 Other external cause status

== ENCOUNTER 2019-02-25 18:22 | Inpatient (IN) | payer OTHER ==
[~2019-02-25] VITALS: Ht 160 cm; Wt 73.5 kg
[2019-02-25 18:25] VITALS: BP 176/83
[2019-02-25] MEDS ORDERED: LOPRESSOR25 PO (18:29)
[2019-02-25 19:05] LABS: ABSOLUTE BASOPHILS 0.1 thou/uL (0.0-0.2); ABSOLUTE LYMPHOCYTES 1.6 thou/uL (0.8-5.3); ABSOLUTE MONOCYTES 0.5 thou/uL (0.0-1.2); BASOPHILS 0.9 %; EOSINOPHILS 0.6 %; HEMATOCRIT 40.2 % (37.0-47.0); HEMOGLOBIN 13.2 gm/dL (12.0-15.0); LYMPHOCYTES 22.1 %; MCH 29.5 pg (26.0-34.0); MCHC 32.9 g/dL (28.0-37.0); MCV 89.7 fL (80.0-100.0); MONOCYTES 6.4 %; MPV 8.6 fl. (7.2-11.1); NUCLEATED RBCS 0 /100WBC; PLATELET COUNT* 246 thou/uL (150-400); RBC 4.48 mil/uL (4.20-5.00); RDW-CV 13.6 % (10.5-14.5); WBC 7.2 thou/uL (4.0-11.0)
[2019-02-25 19:18] LABS: PROTIME 10.2 Seconds (9.20-11.50)
[2019-02-25 19:24] LABS: ANION GAP 10 mmol/L (7-16); BUN 11 mg/dL (7-18); CHLORIDE 105 mmol/L (98-107); CO2 26 mmol/L (21-32); GLUCOSE 102 mg/dL (70-99); POTASSIUM 3.8 mmol/L (3.5-5.1); SODIUM 141 mmol/L (136-145); TROPONIN-I LEVEL <0.06 ng/mL (<0.06)
[2019-02-25 19:25] LABS: ALBUMIN 3.8 g/dL (3.4-5.0); ALKALINE PHOSPHATASE 105 U/L (46-116); LIPASE 118 U/L (73-393); NT-PRO BRAIN NAT PEPTIDE 616 pg/mL (<300); SGOT 18 U/L (15-37); SGPT 20 U/L (30-65); TOTAL PROTEIN 7.5 g/dL (6.4-8.2)
[2019-02-25 21:05] VITALS: BP 143/78
[2019-02-25 21:30] VITALS: BP 168/83
[2019-02-26] VITALS (16 sets, daily range): BP systolic 99–171; BP diastolic 60–85
--- NOTE | 2019-02-26 11:16 | EKG ---
[place] [address] ELECTROCARDIOGRAM REPORT Name: ARTIE GRANDA Room: [address] ADM IN M.R.#: [id number] Admission: 02/25/19 Attend Phys: Randy Cisse MD Discharge: Date of : 68 Report #: [id number] THIS REPORT FOR: //name// [facility] ED Test Date: 2019-02-25 Test Time: 19:13:57 Pat Name: ARTIE GRANDA Department: Room: [facility] Gender: F Multiple Resaw Operator: Bridgett MONTANEZ : 1970 Requested By: Gertrudis Yarbrough Order Number: [id number] MD: Marcus Guthrie Measurements Intervals [place] Rate: 52 P: 20 NM: 139 QRS: -24 QRSD: 96 T: 138 QT: 463 QTc: 431 Interpretive Statements Sinus rhythm Probable LVH with secondary repol abnrm anterior st-t changes, consider ischemia Anterior Q waves, possibly due to LVH Compared to ECG 11/24/2018 08:38:26 Left ventricular hypertrophy now present Q waves now present Possible ischemia persists Electronically Signed On 02-26-2019 11:16:42 CDT by Marcus Guthrie [email or web address] <ELECTRONICALLY SIGNED> By: Marcus Guthrie MD, FAC 02/26/19 1116 12 12 Marcus Guthrie MD, FAC /EPI
--- NOTE | 2019-02-26 11:16 | EKG ---
[place] [address] ELECTROCARDIOGRAM REPORT Name: ARTIE GRANDA Room: [address] ADM IN M.R.#: [id number] Admission: 02/25/19 Attend Phys: Randy Cisse MD Discharge: Date of : 68 Report #: [id number] THIS REPORT FOR: //name// [facility] ED Test Date: 2019-02-25 Test Time: 18:27:29 Pat Name: ARTIE GRANDA Department: Room: [facility] Gender: F Crusher And Blender Operator: TDBETO : 1970 Requested By: Gertrudis Yarbrough Order Number: [id number] MD: Marcus Guthrie Measurements Intervals [place] Rate: 65 P: 22 WI: 139 QRS: -25 QRSD: 95 T: 129 QT: 408 QTc: 425 Interpretive Statements Sinus rhythm Borderline left axis deviation Abnormal T, consider ischemia, lateral leads Compared to ECG 11/24/2018 08:38:26 T-wave abnormality now present Possible ischemia still present Electronically Signed On 02-26-2019 11:15:42 CDT by Marcus Guthrie [email or web address] <ELECTRONICALLY SIGNED> By: Marcus Guthrie MD, [facility] 02/26/19 1115 1827 1827 Marcus Guthrie MD, [facility] /EPI
--- NOTE | 2019-02-26 15:01 | CARD ---
[address] [address] CARDIAC CATH REPORT Name: ARTIE GRANDAYE Room: [address] IN [facility].#: [id number] Admission: 02/25/19 Attend Phys: Rica Gao MD Discharge: Date of : 68 Report #: [id number] THIS REPORT FOR: //name// APPROVED REPORT Study performed: 02/26/2019 11:58:48 Patient Details Patient Status: In-Patient Room #: 210 The patient is a 48 year-old female Event Personnel Marcus Guthrie Therapist Radiation, Aileen Ruff RN, Randy Hernandes SUPERVISOR LOGGING Monitor, Tin Corbett SUPERVISOR LOGGING Scrub, Antony Lopes (R) Monitor Procedures Performed Angiosculpt atherotomy/atherectomy JERRY Place w/wo Plasty Single LAD, JERRY Place w/wo Plasty Single CIRC, JERRY Place w/wo Plasty Addl BR OM 2 Indication Unstable angina Risk Factors Family History, Hypercholesterolemia Previous Procedures/Diagnoses Previous PCI Admission/Lab Medications/Medications given during procedure Platelet Aff. Inhib., Angiomax bolus and infusion Procedure Narrative The patient was brought electively to the Cardiac Catheterization Laboratory and was prepped and draped in a sterile manner. The right femoral was infiltrated with 2% Lidocaine subcutaneous anesthesia. A Wayzata 6 FR sheath was inserted into the right femoral artery. Coronary angiography was performed using coronary diagnostic catheters. The right coronary system was accessed and visualized with a Diagnostic 3DRC 6fr catheter. The left coronary system was accessed and visualized with a Diagnostic JL4 catheter. The left ventricle was accessed and visualized with a Diagnostic Staight Pigtail catheter. Left ventricular/Aortic Valve gradient assessed via catheter pullback. Left ventriculogram [place] [address] CARDIAC CATH REPORT Name: GRANDAARTIE FAYE Room: [address]#: [id number] Admission: 02/25/19 Attend Phys: Rica Gao MD Discharge: Date of : 68 Report #: [id number] Pre-demployment femoral angiogram was performed . Closure device was deployed with a Fr Angioseal STS 6Fr. The patient tolerated the procedure well and there were no complications associated with the procedure. There was no hematoma. Intraoperative Conscious Sedation Sedation start time: 12:34 Case end Time: 13:43 Fentanyl 25 mcg Versed 2 mg Fluoro Time: 18.9 minutes Dose: DAP [id number] cGycm2 3142 mGy Contrast Type and Amount: Visipaque 450 ml Coronary Angiography The patient's coronary anatomy is right dominant. Diagnostic Cath Left Main 0% narrowing LAD 30% proximal LAD narrowing with 80% focal mid LAD in-stent restenosis Circumflex 75% clefted proximal circumflex narrowing with 80% proximal first marginal stenosis and a widely patent distal circumflex stent Right Coronary Dominant vessel with 40% mid and 30% distal narrowings Left Ventriculography The left ventricle is normal in size with normal contractility. The left ventricular ejection fraction is estimated to be 65%. Left ventricular wall motion abnormalities are not present. There is no mitral insufficiency. Hemodynamics The aortic pressure is 156/78 mmHg with a mean of 108 mmHg. The left ventricular pressure is 151/-16 mmHg with a mean of mmHg. The left ventricular end diastolic pressure is 17 mmHg. There was no gradient across the aortic valve upon pullback. PCI Technique Lesion Anticoagulation was achieved with Angiomax. Patient was preloaded with Angiomax IV 11 mg per kg. Percutaneous coronary intervention was performed on the second obtuse marginal branch segment. The lesion stenosis prior to intervention was 80% with FARTUN 3 flow. A 6FR XB 3.0 100CM Guide Catheter was used to engage the ostium. A IG: BMW 190cm Interventional Guidewire [place] [address] CARDIAC CATH REPORT Name: ARTIE GRANDA Room: [address]#: [id number] Admission: 02/25/19 Attend Phys: Rica Gao MD Discharge: Date of : 68 Report #: [id number] STENT DEPLOYMENT A drug-eluting stent Eduard RX Stent 2.0X8mm was inserted and inflated up to 10.00atm for 14seconds. Additional Inflation: 12.00atm for 12seconds. Additional Inflation: 14.00atm for 12seconds. Final angiography reveals 0 % stenosis with FARTUN flow. PCI Technique Lesion 2 Percutaneous Coronary Intervention was performed on the mid left anterior descending artery segment. Patient was preloaded with Angiomax IV 11 mg per kg. Percutaneous coronary intervention was performed on the mid left anterior descending artery segment. A 6FR XB 3.0 100CM Guide Catheter was used to engage the ostium. A IG: BMW 190cm Interventional Guidewire was used to cross the lesion. Balloon Dilation A Balloon catheter AngioSculpt PTCA 2.5 X 10mm to 16 jerrell was inserted and inflated up to 16.00atm for 13seconds. Additional Inflation: 18.00atm for 10seconds. Additional Inflation: 20.00atm for 10seconds. Stent Deployment A drug-eluting stent Eduard RX Stent 2.5X12mm was inserted and inflated up to 16atm for 15seconds. Final angiography reveals 10 % stenosis with FARTUN 3 flow. PCI Technique Lesion Percutaneous coronary intervention was performed on the mid left anterior descending artery segment. A 6FR XB 3.0 100CM Guide Catheter was used to engage the ostium. A IG: BMW 190cm Interventional Guidewire was used to cross the lesion. BALLOON DILATION A Balloon catheter AngioSculpt PTCA 2.5 X 10mm was inserted and inflated up to 12atm for 32seconds. Additional Inflation: 15atm for 30seconds. STENT DEPLOYMENT A drug-eluting stent [place] RX Stent 2.5X12mm was inserted and inflated up to 16atm for 16seconds. Additional Inflation: 17atm for 11seconds. PCI Technique Lesion 3 Percutaneous Coronary Intervention was performed on the proximal [address] [address] CARDIAC CATH REPORT Name: ARTIE GRANDA Room: M.210-P ADM IN M.R.#: [id number] Admission: 02/25/19 Attend Phys: Rica Gao MD Discharge: Date of : 68 Report #: [id number] circumflex artery segment. Patient was preloaded with Angiomax IV 11 mg per kg. Percutaneous coronary intervention was performed on the proximal circumflex artery segment. The lesion stenosis prior to intervention was 75% with FARTUN 3 flow. A 6FR XB 3.0 100CM Guide Catheter was used to engage the ostium. A IG: BMW 190cm Interventional Guidewire was used to cross the lesion. Stent Deployment A drug-eluting stent Eduard RX Stent 2.25X8mm was inserted and inflated up to 14.00atm for 11seconds. Additional Inflation: 17.00atm for 11seconds. Additional Inflation: 18.00atm for 11seconds. Post Stent Deployment Balloon Dilation A Balloon catheter NC Trek RX 2.5 X 8 was inserted and inflated up to 15.00atm for 12seconds. Additional Inflation: 17.00atm for 11seconds. Final angiography reveals 10 % stenosis with FARTUN 3 flow. Conclusion #1 significant multivessel coronary artery disease characterized by the following: A 30% proximal LAD narrowing with 80% focal mid LAD in-stent restenosis B nondominant circumflex with 75% clefted proximal narrowing and 80% stenosis of the proximal portion of the prominent first marginal branch with a widely patent distal circumflex stent C dominant right coronary artery with 40% mid and 30% distal narrowing #2 normal left ventricular systolic function, estimate ejection fraction 65% #3 moderate systemic systolic hypertension with mild elevation of left ventricular end-diastolic pressure at rest #4 successful percutaneous coronary intervention with deployment of sequential drug-eluting stents at the sites of 75% proximal and 80% first marginal stenosis in the circumflex with 10 and 0% residual narrowings #5 successful atherotomy/ atherectomy with stenting of an 80% mid LAD [facility] [address] [place] [address] CARDIAC CATH REPORT Name: ARTIE GRANDA Room: [address] IN M.R.#: [id number] Admission: 02/25/19 Attend Phys: Rica Gao MD Discharge: Date of : 68 Report #: [id number] in-stent restenotic lesion with 10% residual narrowing and FARTUN-3 flow the distal vessel Recommendations Cardiac Risk Reduction Program Aggressive Medical Therapy Medications Administered Ticagrelor Diagnostic Cath Approved by: Marcus Guthrie MD Date/Time: 02/26/2019 14:59:17 <ELECTRONICALLY SIGNED> By: Marcus Guthrie MD, FACC 02/26/19 1501 1501 1501Marcus Guthrie MD, FACC /INF
--- NOTE | 2019-02-26 15:25 | EKG ---
[place] [address] ELECTROCARDIOGRAM REPORT Name: ARTIE GRANDA Room: [address] ADM IN M.R.#: [id number] Admission: 02/25/19 Attend Phys: Rica Gao MD Discharge: Date of : 68 Report #: [id number] THIS REPORT FOR: //name// [facility] Test Date: 2019-02-26 Test Time: 14:49:53 Pat Name: ARTIE GRANDA Department: Room: [address] Gender: F Medical Staff Assistant: ADDIS : 1970 Requested By: Marcus Guthrie Order Number: [id number] MD: Marcus Guthrie Measurements Intervals [place] Rate: 46 P: 30 AR: 123 QRS: -19 QRSD: 96 T: 137 QT: 531 QTc: 465 Interpretive Statements Sinus bradycardia Borderline left axis deviation Abnrm T, consider ischemia, anterolateral lds ST elevation, consider inferior injury Compared to ECG 02/25/2019 19:13:57 Myocardial infarct finding now present Sinus rate has decreased Left ventricular hypertrophy no longer present Q waves no longer present Possible ischemia still present ST (T wave) deviation still present Electronically Signed On 02-26-2019 15:25:12 CDT by Marcus Guthrie [email or web address] <ELECTRONICALLY SIGNED> By: Marcus Guthrie MD, [facility] 02/26/19 1525 1449 1449 Marcus Guthrie MD, [facility] /EPI
[2019-02-27] VITALS: BP 101/57
[2019-02-27 04:00] VITALS: BP 120/78
[2019-02-27 04:50] LABS: HEMATOCRIT 36.3 % (37.0-47.0); HEMOGLOBIN 11.9 gm/dL (12.0-15.0); MCH 29.3 pg (26.0-34.0); MCHC 32.6 g/dL (28.0-37.0); MCV 89.7 fL (80.0-100.0); MPV 8.8 fl. (7.2-11.1); RBC 4.05 mil/uL (4.20-5.00); RDW-CV 14.1 % (10.5-14.5); WBC 12.7 thou/uL (4.0-11.0)
[2019-02-27 05:50] LABS: ALBUMIN 3.3 g/dL (3.4-5.0); ALKALINE PHOSPHATASE 83 U/L (46-116); ANION GAP 10 mmol/L (7-16); BUN 13 mg/dL (7-18); CALCIUM 8.7 mg/dL (8.5-10.1); CHLORIDE 108 mmol/L (98-107); CHOLESTEROL 142 mg/dL (<200); CO2 24 mmol/L (21-32); CREATININE 0.9 mg/dL (0.6-1.3); GLUCOSE 110 mg/dL (70-99); HDL CHOLESTEROL 44 mg/dL (>40); LDL CHOLESTEROL 81 mg/dL (<100); POTASSIUM 4.2 mmol/L (3.5-5.1); SGOT 16 U/L (15-37); SGPT 17 U/L (30-65); SODIUM 142 mmol/L (136-145); TC:HDL 3.2 Ratio (Not establshd); TOTAL BILIRUBIN 0.8 mg/dL (<0.1-1.0); TOTAL PROTEIN 6.7 g/dL (6.4-8.2); TRIGLYCERIDE 89 mg/dL (<150); TROPONIN-I LEVEL 0.32 ng/mL (<0.06); VLDL 18 mg/dL (<40)
[2019-02-27 05:58] LABS: SERUM ASSESSMENT Clear
[2019-02-27 08:00] VITALS: BP 120/73
[2019-02-27 09:40] VITALS: BP 171/85
--- NOTE | 2019-02-27 10:49 | EKG ---
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: MARK : 1970 Requested By: Marcus Guthrie Order Number: [id number] Reading MD: Marcus Guthrie Measurements Intervals [place] Rate: 55 P: 45 [place]: 121 QRS: -14 QRSD: 101 T: 132 QT: 512 QTc: 490 Interpretive Statements Sinus rhythm Abnrm T, probable ischemia, anterolateral lds Compared to ECG 02/26/2019 14:49:53 Sinus bradycardia no longer present Myocardial infarct finding no longer present Possible ischemia still present Electronically Signed On 02-27-2019 10:49:14 CDT by Marcus Guthrie [email or web address] <ELECTRONICALLY SIGNED> By: Marcus Guthrie MD, [facility] 02/27/19 1049 0433 0433 Marcus Guthrie MD, [facility] /EPI
[2019-02-27] MEDS ORDERED: PREDNISONE 10 M10 MG PO (13:35)
[2019-02-27] MEDS ORDERED: VENTOLIN HFA 1818 GM INH (13:37)
[2019-02-27 13:38] VITALS: BP 171/85
[2019-02-27] MEDS ORDERED: AZITHROMYCIN1 GM PO (14:01)
[2019-02-27] MEDS ORDERED: SERTRALINE HCL50 MG PO (14:03)
== END 2019-02-27 14:20 | disposition home or self-care (01) | DRG 247 ==
LOC: M.ERS 18:22 → M.2W 19:43 → M.TBA-ER 19:43 → M.2W 21:19
PROVIDERS: Internal Medicine; Personal Emergency Response Attendant; ADMIT Internal Medicine
PROC: B2151ZZ Fluoroscopy of Left Heart using Low Osmolar Contrast (ICD-10-PCS; principal; 2019-02-26)
PROC: B2111ZZ Fluoroscopy of Multiple Coronary Arteries using Low Osmolar Contrast (ICD-10-PCS; principal; 2019-02-26)
PROC: B41J1ZZ Fluoroscopy of Other Lower Arteries using Low Osmolar Contrast (ICD-10-PCS; principal; 2019-02-26)
PROC: 4A023N7 Measurement of Cardiac Sampling and Pressure, Left Heart, Percutaneous Approach (ICD-10-PCS; principal; 2019-02-26)
PROC: 02C03ZZ Extirpation of Matter from Coronary Artery, One Artery, Percutaneous Approach (ICD-10-PCS; principal; 2019-02-26)
PROC: 027236Z Dilation of Coronary Artery, Three Arteries with Three Drug-eluting Intraluminal Devices, Percutaneous Approach (ICD-10-PCS; principal; 2019-02-26)
DX: I25.110 Atherosclerotic heart disease of native coronary artery with unstable angina pectoris (principal); F41.9 Anxiety disorder, unspecified; I73.9 Peripheral vascular disease, unspecified; N83.202 Unspecified ovarian cyst, left side; N83.201 Unspecified ovarian cyst, right side; K21.9 Gastro-esophageal reflux disease without esophagitis; E78.5 Hyperlipidemia, unspecified; F32.9 Major depressive disorder, single episode, unspecified; I25.2 Old myocardial infarction; Z95.5 Presence of coronary angioplasty implant and graft; Z98.891 History of uterine scar from previous surgery; Z88.6 Allergy status to analgesic agent; Z88.7 Allergy status to serum and vaccine; Z79.82 Long term (current) use of aspirin; Z82.49 Family history of ischemic heart disease and other diseases of the circulatory system; Z83.3 Family history of diabetes mellitus; Z80.1 Family history of malignant neoplasm of trachea, bronchus and lung; Z87.891 Personal history of nicotine dependence

== ENCOUNTER 2019-04-14 17:42 | Observation (INO) | payer OTHER ==
[~2019-04-14] VITALS: Ht 160 cm; Wt 73.0 kg
[~2019-04-14 17:42] MED LIST changes: +AZITHROMYCIN1 GM PO; +PREDNISONE 10 M10 MG PO; +VENTOLIN HFA 1818 GM INH
[2019-04-14 17:44] VITALS: BP 131/76
[2019-04-14 18:12] LABS: ABSOLUTE EOSINOPHILS 0.1 thou/uL (0.0-0.7); ABSOLUTE LYMPHOCYTES 1.5 thou/uL (0.8-5.3); ABSOLUTE MONOCYTES 0.5 thou/uL (0.0-1.2); ABSOLUTE NEUTROPHILS 4.5 thou/uL (1.6-8.1); BASOPHILS 0.5 %; EOSINOPHILS 1.6 %; HEMATOCRIT 37.8 % (37.0-47.0); HEMOGLOBIN 12.4 gm/dL (12.0-15.0); LYMPHOCYTES 22.6 %; MCH 28.2 pg (26.0-34.0); MCHC 32.9 g/dL (28.0-37.0); MCV 85.7 fL (80.0-100.0); MONOCYTES 7.9 %; MPV 8.4 fl. (7.2-11.1); NUCLEATED RBCS 0 /100WBC; PLATELET COUNT* 290 thou/uL (150-400); POLYS 67.4 %; RBC 4.41 mil/uL (4.20-5.00); RDW-CV 13.6 % (10.5-14.5); WBC 6.7 thou/uL (4.0-11.0)
[2019-04-14 18:26] LABS: ANION GAP 8 mmol/L (7-16); BUN 13 mg/dL (7-18); CALCIUM 8.7 mg/dL (8.5-10.1); CHLORIDE 104 mmol/L (98-107); CO2 29 mmol/L (21-32); GLUCOSE 110 mg/dL (70-99); POTASSIUM 3.6 mmol/L (3.5-5.1); SODIUM 141 mmol/L (136-145)
[2019-04-14 18:30] LABS: ALBUMIN 3.8 g/dL (3.4-5.0); ALKALINE PHOSPHATASE 112 U/L (46-116); LIPASE 138 U/L (73-393); MAGNESIUM 2.1 mg/dL (1.8-2.4); NT-PRO BRAIN NAT PEPTIDE 380 pg/mL (<300); SGOT 17 U/L (15-37); SGPT 20 U/L (30-65); TOTAL BILIRUBIN 0.6 mg/dL (<0.1-1.0); TOTAL PROTEIN 7.7 g/dL (6.4-8.2); TROPONIN-I LEVEL <0.06 ng/mL (<0.06)
[2019-04-14 20:11] VITALS: BP 130/79
[2019-04-14 20:30] VITALS: BP 131/71
--- NOTE | 2019-04-14 21:58 | NUR ---
RECEIVED REPORT AND ASSUMED CARE AT 2019. PT TRANSPORTED FROM ED TO ROOM 211. VSS. CARDIAC MONITORING IN PLACE. PT DENIES COMPLAINTS OF PAIN. ASSESSMENT COMPLETED CHARTED. DISCUSSED PLAN OF CARE WITH PT, NPO AFTER MIDNIGHT/ EKG IN AM/ LABS/ UA. PT VERBALIZED UNDERSTANDING. PT UP AD SANG IN ROOM, ON 2LNC PRN. BED LOCKED IN LOWEST POSITION, CALL LIGHT WITHIN REACH. ADMISSION COMPLETED BY NURSING, MEDICATION ADMIN PER EMAR.
[2019-04-15] VITALS: BP 113/58
[2019-04-15 04:00] VITALS: BP 138/72
[2019-04-15 05:22] LABS: AMP/METHAMP Negative (Negative); BARBITURATES Negative (Negative); BENZODIAZEPINES Negative (Negative); COCAINE Negative (Negative); METHADONE Negative (Negative); OPIATES Negative (Negative); PCP Negative (Negative); THC Negative (Negative)
[2019-04-15 05:30] LABS: ABSOLUTE EOSINOPHILS 0.1 thou/uL (0.0-0.7); ABSOLUTE LYMPHOCYTES 1.8 thou/uL (0.8-5.3); ABSOLUTE MONOCYTES 0.5 thou/uL (0.0-1.2); ABSOLUTE NEUTROPHILS 5.1 thou/uL (1.6-8.1); BASOPHILS 0.4 %; EOSINOPHILS 1.1 %; HEMATOCRIT 35.5 % (37.0-47.0); HEMOGLOBIN 11.5 gm/dL (12.0-15.0); LYMPHOCYTES 24.3 %; MCH 27.8 pg (26.0-34.0); MCHC 32.5 g/dL (28.0-37.0); MCV 85.7 fL (80.0-100.0); MONOCYTES 6.8 %; MPV 8.6 fl. (7.2-11.1); NUCLEATED RBCS 0 /100WBC; PLATELET COUNT* 282 thou/uL (150-400); POLYS 67.4 %; RBC 4.15 mil/uL (4.20-5.00); RDW-CV 13.7 % (10.5-14.5); WBC 7.5 thou/uL (4.0-11.0)
[2019-04-15 05:47] LABS: CALCIUM 8.7 mg/dL (8.5-10.1); CREATININE 0.9 mg/dL (0.6-1.3); POTASSIUM 3.6 mmol/L (3.5-5.1)
[2019-04-15 06:34] LABS: ESR (SEDRATE) 13 mm/hr (0-20)
[2019-04-15 08:00] VITALS: BP 128/72
--- NOTE | 2019-04-15 10:25 | NUR ---
Pt is A&O. Resides at home with her . Active and independent. No DME. No hx of HH or SNF. Goal is home at dc, no needs anticipated.
[2019-04-15 11:48] VITALS: BP 127/71
--- NOTE | 2019-04-15 13:01 | EKG ---
[place] [address] ELECTROCARDIOGRAM REPORT Name: ARTIE GRANDA Room: [address] ADM IN .R.#: [id number] Admission: 04/14/19 Attend Phys: Thu Rodriguez MD Discharge: Date of : 68 Report #: [id number] THIS REPORT FOR: //name// [facility] ED Test Date: 2019-04-14 Test Time: 17:46:59 Pat Name: ARTIE GRANDA Department: Room: [facility] Gender: F Scaffold Setter: Bridgett CALDWELL : 1970 Requested By: Jd Sow Order Number: [id number] MD: Kai Licona Measurements Intervals [place] Rate: 58 P: 16 [place]: 134 QRS: -20 QRSD: 95 T: 127 QT: 424 QTc: 417 Interpretive Statements Sinus rhythm Probable left atrial enlargement Borderline left axis deviation Abnrm T, consider ischemia, anterolateral lds Compared to ECG 02/27/2019 04:33:27 No significant changes okay to this since the patient is 89 near-syncope. AFTER clinic in his 40s. 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 The patient Electronically Signed On 04-15-2019 13:01:14 CDT by Kai Licona [email or web address] <ELECTRONICALLY SIGNED> By: Kai Licona MD, FAC 04/15/19 1301 1746 1746 Kai Licona MD, [facility] /EPI
--- NOTE | 2019-04-15 13:02 | EKG ---
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: : 1970 Requested By: Thu Rodriguez Order Number: [id number] Reading MD: Kai Licona Measurements Intervals [place] Rate: 60 P: 26 [place]: 136 QRS: -24 QRSD: 95 T: 119 QT: 431 QTc: 431 Interpretive Statements Sinus rhythm Borderline left axis deviation Abnrm T, consider ischemia, anterolateral lds Compared to ECG 02/27/2019 04:33:27 No significant changes Electronically Signed On 04-15-2019 13:02:24 CDT by Kai Licona [email or web address] <ELECTRONICALLY SIGNED> By: Kai Licona MD, [facility] 04/15/19 1302 0349 0349 Kai Licona MD, [facility] /EPI
[2019-04-15] MEDS ORDERED: ATORVASTATIN CA40 MG PO (13:37)
[2019-04-15] MEDS ORDERED: PROTONIX40 M1 PO (13:37)
[2019-04-15 16:32] VITALS: BP 127/71
--- NOTE | 2019-04-15 16:37 | NUR ---
PT RECEIVED BACK FROM STRESS TEST. VSS. NO COMPLAINT OF CHEST PAIN. PT OKAY TO DISHPEREZ MARES NP.
--- NOTE | 2019-04-15 17:05 | CARDNUC ---
[place] [address] CARDIAC NUCLEAR IMAGING REPORT Name: ARTIE GRANDA Room: [address]#: [id number] Admission: 04/14/19 Attend Phys: Thu Rodriguez MD Discharge: Date of : 68 Date of Service: 04/15/19 1704 Report #: [id number] THIS REPORT FOR: //name// APPROVED REPORT Study performed: 04/15/2019 14:36:26 Exam: Nuclear Stress Test Indication: Chest pain Patient Location: In-Patient Room #: [facility] Stress Tech: Alondra Currie Stress Nurse: Mary Cardenas RN NM Tech:BONILLA Womack Ht: 5 ft 3 in Wt: 161 lbs BSA: 1.76 m2 BMI: 28.51 Medical History Medical History: mi, cad, pvd, Medications: atorvasttin, metoprolol, ticagrelor, asa-81 Allergies: tylenol, measles vac Cardiac Risk Factors: age, pvd Previous Cardiac Procedures: pci Exercise History: Physically active Stress Test Details Stress Test: Pharmacologic stress testing performed using 0.4 mg of regadenoson per 5 mL given IV over 10 seconds. Reason for pharmacologic stress test: physical limitation. HR Resting HR: 65 bpm Max Heart Rate (APMHR): 171 bpm Max HR Achieved: 113 bpm Target HR (85% APMHR): 145 bpm % of APMHR: 66 Recovery HR: 82 bpm BP Resting BP: 157/93 mmHg Max BP: 156/83 mmHg ECG Resting ECG: Sinus Rhythm, nonspecific ST-T abnormalities Stress ECG: Sinus Rhythm, nons[place] [address] CARDIAC NUCLEAR IMAGING REPORT Name: JESUS ALBERTOARTIE F Room: [address]#: [id number] Admission: 04/14/19 Attend Phys: Thu Rodriguez MD Discharge: Date of : 68 Date of Service: 04/15/19 1704 Report #: [id number] Change: None Arrhythmia: None Recovery ECG: Sinus Rhythm, nonspecific ST-T abnormalities Recovery ST Change: None Recovery Arrhythmia: None Clinical Reason for Termination: Completed protocol Exercise duration: 0 min sec Exercise capacity: 1 METs The patient tolerated Lexiscan infusion without significant symptoms. Nurse Comments pt unable to walk on treadmill due to weakened condition Stress ECG Conclusion The baseline 12-lead EKG shows sinus rhythm with some nonspecific T-wave inversion in the anterior leads. EKGs obtained during and post Lexiscan infusion show sinus rhythm with no significant ST or T wave changes when compared to baseline EKG no stress-induced arrhythmias. NM EXAM: Myocardial Perfusion REST/STRESS Imaging Protocol: Rest Tc-99m/Stress Tc-99m 1 day Resting Data Rest SPECT myocardial perfusion imaging was performed in supine position 30 minutes following the intravenous injection of 11.0 mCi of Tc-99m Sestamibi. Time of rest injection: 1330 Date: 04/15/2019 The images were gated to evaluate regional wall motion and calculate left ventricular ejection fraction. Administration Route: IV Administration Site: Right AC Pharmacologic Stress Pharmacologic stress test was performed by injecting Regadenoson 0.4 mg IV push followed by the intravenous injection of 34.2 mCi of Tc-99m Sestamibi. Time of stress injection: 1440 Date: 04/15/2019 Administration Route: IV Administration Site: Right AC Gated Stress SPECT was performed 40 minutes [place] [address] CARDIAC NUCLEAR IMAGING REPORT Name: GRANDAARTIE F Room: [address]#: [id number] Admission: 04/14/19 Attend Phys: Thu Rodriguez MD Discharge: Date of : 68 Date of Service: 04/15/19 1704 Report #: [id number] The images were gated to evaluate regional wall motion and calculate left ventricular ejection fraction. Prone imaging was performed. Study Quality Study: Good Artifact: No artifact Study Data At rest, the left ventricular ejection fraction was 66%.. Post stress, the left ventricular ejection was 69%.. TID = 1.07. Perfusion Normal left ventricular perfusion. Wall Motion Normal left ventricular wall motion. Nuclear Conclusion ECG Findings: negative for ischemia Clinical Findings: negative for ischemia Nuclear Findings: negative for ischemia Exercise Capacity: not assessed Left Ventricular Function: normal Risk Study: low Myocardial perfusion images show no defect to suggest infarct or ischemia. Left ventricular systolic function appears normal on gated studies. This is a low risk study. <Conclusion> The baseline 12-lead EKG shows sinus rhythm with some nonspecific T-wave inversion in the anterior leads. EKGs obtained during and post Lexiscan infusion show sinus rhythm with no significant ST or T wave changes when compared to baseline EKG no stress-induced arrhythmias. <ELECTRONICALLY SIGNED> By: Kai Licona MD, FACC 04/15/19 1704 03 03 Kai Licona MD, FACC /INF
[2019-04-15 17:10] VITALS: BP 125/71
--- NOTE | 2019-04-15 17:14 | NUR ---
PATIENT DISCHARGED OFF THE UNIT AT 1710 WITH AND SON.
--- NOTE | 2019-04-16 08:49 | CON ---
[address] [address] CONSULTATION Name: ARTIE GRANDA Room: [address] J Luis Cooper#: [id number] Admission: 04/14/19 Attend Phys: Thu Rodriguez MD Discharge: 04/15/19 Date of : 68 Report #: [id number] THIS REPORT FOR: //name// CC: [facility] physician/PCP Marcus Guthrie MD [facility] Thu Rodriguez CARDIOLOGY CONSULTATION INDICATION: Neck and chest pain. HISTORY OF PRESENT ILLNESS: The patient is a 48-year-old white female, who is well known to our service. She has a history of coronary artery disease with prior myocardial infarction, followed by percutaneous coronary intervention to the right coronary artery, diagonal branch of the LAD and circumflex arteries on separate occasions in May, June and August 2018. Last month, she was here with recurrent chest pain. Catheterization at that time revealed recurrent stenoses. She had percutaneous coronary intervention with drug-eluting stent placement to the second obtuse marginal branch of the circumflex coronary artery and drug-eluting stent placement to the mid left anterior descending coronary artery. The patient reports resolution of discomfort with this intervention. The patient presents now with recurrent neck and chest discomfort last evening on 2 occasions that resolved fairly quickly and spontaneously. There was no associated shortness of breath, diaphoresis or nausea. The pain occurred first in the neck and radiated around to the upper anterior chest. There was no further radiation. She has been stable since admission to the hospital without recurrent symptoms. ALLERGIES: TYLENOL, WHICH CAUSES A RASH; MEASLES VACCINE. HOME MEDICATIONS: Albuterol inhaler 2 puffs q. 6 hours p.r.n., aspirin 81 mg daily, Lipitor 40 mg at bedtime, metoprolol tartrate 25 mg half a tablet p.o. b.i.d., sertraline 50 mg daily, Brilinta 90 mg b.i.d. PAST MEDICAL HISTORY: Coronary artery disease, hyperlipidemia, hypertension. SOCIAL HISTORY: The patient has a history of tobacco use, but quit over a year ago. She does not drink alcohol. PAST SURGICAL HISTORY: 1. . 2. History of deep venous thrombosis. FAMILY HISTORY: Noncontributory. REVIEW OF SYSTEMS: A 14-point review of systems is positive for chest discomfort, dyspnea on exertion, mild positional lightheadedness and fatigue, [place] [address] CONSULTATION Name: ARTIE GRANDA Room: [address] Kenneth#: [id number] Admission: 04/14/19 Attend Phys: Thu Rodriguez MD Discharge: 04/15/19 Date of : 68 Report #: [id number] otherwise unremarkable. PHYSICAL EXAMINATION: VITAL SIGNS: Stable. Blood pressure 127/71, pulse was 61 and regular. GENERAL: This is a pleasant lady in no distress. Mood and affect appropriate. HEENT: Extraocular muscles intact. Mucous membranes are moist. NECK: Shows no jugular venous distention. There are no carotid bruits. CHEST: Reveals clear lung nelson without wheezes or rales. CARDIOVASCULAR: Reveals a regular rhythm without gallop or murmur. ABDOMEN: Reveals normal bowel sounds. The abdomen is soft and nontender. EXTREMITIES: Shows no edema. Peripheral pulses 2+ and easily palpable. LABORATORY DATA: EKG shows sinus rhythm without significant ST or T-wave abnormality. Chest x-ray shows no acute cardiopulmonary abnormality. Labs are reviewed. Sodium 143, potassium 3.6, chloride 107, bicarbonate 26, BUN 11, creatinine 0.9, serum glucose 83, AST 17, lipase 138, total bilirubin 0.6, direct bilirubin 0.1, calcium 8.7, magnesium 2.1, alkaline phosphatase 112, ALT 20, total protein 7.7, albumin 3.8, EGFR 67. Lactic acid 1.4. Total CPK 30. Troponin less than 0.06 on 3 separate occasions. NT-proBNP 380. White blood cell count 7.5; hemoglobin 11.5; platelet count 288,000. IMPRESSION AND RECOMMENDATIONS: 1. Recurrent neck and chest discomfort, somewhat atypical for angina. The patient does have a history of coronary artery disease with multiple interventions in the past. I would continue dual antiplatelet therapy at this time. At this point in time, I would favor noninvasive evaluation with stress testing, which has been ordered. 2. Coronary artery disease with recent percutaneous coronary intervention with drug-eluting stent placement in 02/2019. Continue dual antiplatelet therapy at this time. EKG and enzymes are stable. 4. Hyperlipidemia. Continue statin agent at current dose. 5. Hypertension, adequately controlled on current regimen. <ELECTRONICALLY SIGNED> By: Kai Licona MD, FACC 04/16/19 0849 1159 0255Kai Licona MD, FACC /nt
== END 2019-04-15 17:15 | disposition home or self-care (01) ==
LOC: M.ERS 17:42 → M.TBA-ER 18:46 → M.2W 18:46
PROVIDERS: Emergency Medicine Emergency Medical Services; ADMIT Family Medicine
DX: R07.89 Other chest pain (principal); I25.10 Atherosclerotic heart disease of native coronary artery without angina pectoris; I73.9 Peripheral vascular disease, unspecified; F32.9 Major depressive disorder, single episode, unspecified; F41.9 Anxiety disorder, unspecified; S46.919D Strain of unspecified muscle, fascia and tendon at shoulder and upper arm level, unspecified arm, subsequent encounter; I12.9 Hypertensive chronic kidney disease with stage 1 through stage 4 chronic kidney disease, or unspecified chronic kidney disease; N18.2 Chronic kidney disease, stage 2 (mild); E78.5 Hyperlipidemia, unspecified; I82.409 Acute embolism and thrombosis of unspecified deep veins of unspecified lower extremity; Z88.8 Allergy status to other drugs, medicaments and biological substances; Z79.82 Long term (current) use of aspirin; Z79.899 Other long term (current) drug therapy; Z87.891 Personal history of nicotine dependence; Z98.890 Other specified postprocedural states; Z95.5 Presence of coronary angioplasty implant and graft; X58.XXXD Exposure to other specified factors, subsequent encounter

== ENCOUNTER 2019-06-08 22:19 | Emergency (ER) | payer OTHER ==
[~2019-06-08] VITALS: Ht 160 cm; Wt 72.6 kg
[2019-06-08 22:54] LABS: ABSOLUTE LYMPHOCYTES 1.3 thou/uL (0.8-5.3); ABSOLUTE MONOCYTES 0.4 thou/uL (0.0-1.2); ABSOLUTE NEUTROPHILS 6.6 thou/uL (1.6-8.1); BASOPHILS 0.4 %; EOSINOPHILS 0.5 %; HEMATOCRIT 32.3 % (37.0-47.0); HEMOGLOBIN 10.7 gm/dL (12.0-15.0); LYMPHOCYTES 15.4 %; MCH 27.3 pg (26.0-34.0); MCHC 33.1 g/dL (28.0-37.0); MCV 82.5 fL (80.0-100.0); MPV 8.4 fl. (7.2-11.1); NUCLEATED RBCS 0 /100WBC; PLATELET COUNT* 218 thou/uL (150-400); POLYS 78.7 %; RBC 3.91 mil/uL (4.20-5.00); RDW-CV 14.8 % (10.5-14.5); WBC 8.4 thou/uL (4.0-11.0)
[2019-06-08 22:57] LABS: URINE BILIRUBIN NEGATIVE (Negative); URINE BLOOD 2+ (Negative); URINE CLARITY CLEAR; URINE COLOR YELLOW; URINE GLUCOSE-RANDOM NEGATIVE (Negative); URINE KETONES NEGATIVE (Negative); URINE LEUKOCYTES-REFLEX NEGATIVE (Negative); URINE NITRITE-REFLEX NEGATIVE (Negative); URINE PROTEIN 1+ (Negative); URINE SPECIFIC GRAVITY >= 1.030 (1.005-1.030); URINE UROBILINOGEN 0.2 E.U./dl (0.2-1.0)
[2019-06-08 23:02] LABS: ANION GAP 8 mmol/L (7-16); BUN 11 mg/dL (7-18); CALCIUM 8.6 mg/dL (8.5-10.1); CHLORIDE 106 mmol/L (98-107); CO2 27 mmol/L (21-32); CREATININE 0.9 mg/dL (0.6-1.3); GLUCOSE 143 mg/dL (70-99); POTASSIUM 4.2 mmol/L (3.5-5.1); SODIUM 141 mmol/L (136-145)
[2019-06-08 23:15] LABS: ALBUMIN 3.2 g/dL (3.4-5.0); ALKALINE PHOSPHATASE 95 U/L (46-116); LIPASE 118 U/L (73-393); SGOT 15 U/L (15-37); SGPT 17 U/L (30-65); TOTAL BILIRUBIN 0.5 mg/dL (<0.1-1.0); TOTAL PROTEIN 6.5 g/dL (6.4-8.2); TROPONIN-I LEVEL <0.06 ng/mL (<0.06)
[2019-06-08 23:21] LABS: BACTERIA-REFLEX 1-9 Few /HPF (None Seen); CASTS None Seen /LPF (None Seen); CRYSTALS None Seen /LPF (None Seen); MUCUS >6 Heavy strn/LPF (None Seen); SQUAMOUS >10 Many /LPF (0-3); URINE RBC 3-10 Few /HPF (0-2); URINE WBC-REFLEX 0-5 Rare /HPF (0-5)
[2019-06-09] MEDS ORDERED: ZOFRAN ODT4 MG DISSOLVE (00:49)
[2019-06-09] MEDS ORDERED: TRAMADOL 50 MG50 MG PO (00:49)
[2019-06-09] MEDS ORDERED: AUGMENTIN 875-1 EACH PO (00:49)
[2019-06-09 01:01] VITALS: BP 112/56
--- NOTE | 2019-06-09 12:03 | EKG ---
[place] [address] ELECTROCARDIOGRAM REPORT Name: ARTIE GRANDA Room: [facility]#: [id number] Admission: 06/08/19 Attend Phys: Discharge: 06/09/19 Date of : 68 Report #: [id number] THIS REPORT FOR: //name// 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: JEN : 1970 Requested By: Jd Sow Order Number: [id number] MD: Jesus Alberto Akins Measurements Intervals [place] Rate: 48 P: 17 [place]: 134 QRS: -16 QRSD: 96 T: 113 QT: 492 QTc: 440 Interpretive Statements Sinus bradycardia Borderline left axis deviation Abnrm T, consider ischemia, anterolateral lds Compared to ECG 04/15/2019 03:49:03 Sinus rhythm no longer present Possible ischemia still present Electronically Signed On 06-09-2019 12:03:07 CDT by Jesus Alberto Akins [email or web address] <ELECTRONICALLY SIGNED> By: Jesus Alberto Akins MD, [facility] 06/09/19 1203 37 Jesus Alberto Akins MD, [facility] /EPI
== END 2019-06-09 01:03 | disposition home or self-care (01) ==
LOC: M.ERS 22:19
PROVIDERS: Emergency Medicine Emergency Medical Services
DX: K52.9 Noninfective gastroenteritis and colitis, unspecified (principal); F41.9 Anxiety disorder, unspecified; F32.9 Major depressive disorder, single episode, unspecified; I25.10 Atherosclerotic heart disease of native coronary artery without angina pectoris; Z87.891 Personal history of nicotine dependence; Z79.82 Long term (current) use of aspirin; Z79.899 Other long term (current) drug therapy; Z88.8 Allergy status to other drugs, medicaments and biological substances

== ENCOUNTER 2019-07-23 09:27 | Emergency (ER) | payer OTHER ==
[~2019-07-23] VITALS: Ht 160 cm; Wt 72.6 kg
[~2019-07-23 09:27] MED LIST changes: +AUGMENTIN 875-1 EACH PO; +TRAMADOL 50 MG50 MG PO; +ZOFRAN ODT4 MG DISSOLVE
[2019-07-23 10:12] LABS: ABSOLUTE EOSINOPHILS 0.1 thou/uL (0.0-0.7); ABSOLUTE MONOCYTES 0.7 thou/uL (0.0-1.2); ABSOLUTE NEUTROPHILS 5.7 thou/uL (1.6-8.1); BASOPHILS 0.5 %; EOSINOPHILS 0.7 %; HEMATOCRIT 32.1 % (37.0-47.0); HEMOGLOBIN 10.2 gm/dL (12.0-15.0); MCH 25.4 pg (26.0-34.0); MCHC 31.8 g/dL (28.0-37.0); MCV 79.9 fL (80.0-100.0); MONOCYTES 7.7 %; MPV 8.5 fl. (7.2-11.1); NUCLEATED RBCS 0 /100WBC; PLATELET COUNT* 260 thou/uL (150-400); POLYS 67.1 %; RBC 4.01 mil/uL (4.20-5.00); RDW-CV 15.3 % (10.5-14.5); WBC 8.5 thou/uL (4.0-11.0)
[2019-07-23 10:25] LABS: ANION GAP 11 mmol/L (7-16); BUN 8 mg/dL (7-18); CALCIUM 8.9 mg/dL (8.5-10.1); CHLORIDE 105 mmol/L (98-107); CO2 26 mmol/L (21-32); CREATININE 0.9 mg/dL (0.6-1.3); GLUCOSE 100 mg/dL (70-99); POTASSIUM 3.8 mmol/L (3.5-5.1); SODIUM 142 mmol/L (136-145)
[2019-07-23 10:38] LABS: ALBUMIN 3.8 g/dL (3.4-5.0); ALKALINE PHOSPHATASE 89 U/L (46-116); LIPASE 134 U/L (73-393); MAGNESIUM 2.1 mg/dL (1.8-2.4); NT-PRO BRAIN NAT PEPTIDE 631 pg/mL (<300); SGOT 16 U/L (15-37); SGPT 17 U/L (30-65); TOTAL BILIRUBIN 0.7 mg/dL (<0.1-1.0); TOTAL PROTEIN 7.3 g/dL (6.4-8.2); TROPONIN-I LEVEL <0.06 ng/mL (<0.06)
[2019-07-23 11:24] LABS: PROTIME 10.1 Seconds (9.20-11.50)
[2019-07-23 11:43] VITALS: BP 116/60
--- NOTE | 2019-07-23 15:02 | EKG ---
[place] [address] ELECTROCARDIOGRAM REPORT Name: ARTIE GRANDA Room: [facility]#: [id number] Admission: 07/23/19 Attend Phys: Discharge: 07/23/19 Date of : 68 Report #: [id number] THIS REPORT FOR: //name// [facility] ED Test Date: 2019-07-23 Test Time: 09:33:05 Pat Name: ARTIE GRANDA Department: Room: Gender: F Manager Skilled: tahir : 1970 Requested By: Giorgio Gaviria Order Number: [id number] MD: Marcus Guthrie Measurements Intervals [place] Rate: 66 P: 35 [place]: 123 QRS: -17 QRSD: 95 T: 115 QT: 412 QTc: 432 Interpretive Statements Sinus rhythm Borderline left axis deviation Abnrm T, consider ischemia, anterolateral lds Compared to ECG 06/08/2019 22:38:28 Sinus bradycardia no longer present Possible ischemia still present Electronically Signed On 07-23-2019 15:02:14 CDT by Marcus Guthrie [email or web address] <ELECTRONICALLY SIGNED> By: Marcus Guthrie MD, [facility] 07/23/19 1502 0933 Marcus Guthrie MD, [facility] /EPI
== END 2019-07-23 11:45 | disposition home or self-care (01) ==
LOC: M.ERS 09:27
PROVIDERS: Family Medicine
DX: R06.00 Dyspnea, unspecified (principal); F41.9 Anxiety disorder, unspecified; F32.9 Major depressive disorder, single episode, unspecified; I25.10 Atherosclerotic heart disease of native coronary artery without angina pectoris; Z87.891 Personal history of nicotine dependence; Z88.6 Allergy status to analgesic agent; Z98.890 Other specified postprocedural states; Z88.7 Allergy status to serum and vaccine

== ENCOUNTER 2019-08-07 14:33 | Emergency (ER) | payer OTHER ==
[~2019-08-07] VITALS: Ht 160 cm; Wt 74.8 kg
[2019-08-07] MEDS ORDERED: PREDNISONE 10 M10 M1 PO (15:13)
[2019-08-07] MEDS ORDERED: DIPHENHIST50 MG PO (15:13)
[2019-08-07 15:22] VITALS: BP 146/68
== END 2019-08-07 15:22 | disposition home or self-care (01) ==
LOC: M.ERS 14:33
DX: R21 Rash and other nonspecific skin eruption (principal); T78.40XA Allergy, unspecified, initial encounter; F41.9 Anxiety disorder, unspecified; F32.9 Major depressive disorder, single episode, unspecified; I25.10 Atherosclerotic heart disease of native coronary artery without angina pectoris; Z98.890 Other specified postprocedural states; Z88.6 Allergy status to analgesic agent; Z88.7 Allergy status to serum and vaccine; Z87.891 Personal history of nicotine dependence; X58.XXXA Exposure to other specified factors, initial encounter

== ENCOUNTER 2019-08-09 18:17 | Emergency (ER) | payer OTHER ==
[~2019-08-09] VITALS: Ht 160 cm; Wt 74.8 kg
[~2019-08-09 18:17] MED LIST changes: +DIPHENHIST50 MG PO; +PREDNISONE 10 M10 M1 PO
[2019-08-09] MEDS ORDERED: TRIAMCINOLONE A15 G1 TOP (19:56)
[2019-08-09 20:04] VITALS: BP 147/60
== END 2019-08-09 20:05 | disposition home or self-care (01) ==
LOC: M.ERS 18:17
DX: L25.9 Unspecified contact dermatitis, unspecified cause (principal); I25.10 Atherosclerotic heart disease of native coronary artery without angina pectoris; F41.9 Anxiety disorder, unspecified; F32.9 Major depressive disorder, single episode, unspecified; Z88.6 Allergy status to analgesic agent; Z88.7 Allergy status to serum and vaccine; Z98.890 Other specified postprocedural states

== ENCOUNTER 2019-09-03 22:20 | Emergency (ER) | payer OTHER ==
[~2019-09-03] VITALS: Ht 160 cm; Wt 79.4 kg
[~2019-09-03 22:20] MED LIST changes: +TRIAMCINOLONE A15 G1 TOP
[2019-09-03 22:48] LABS: ABSOLUTE LYMPHOCYTES 1.3 thou/uL (0.8-5.3); ABSOLUTE MONOCYTES 0.5 thou/uL (0.0-1.2); BASOPHILS 0.5 %; EOSINOPHILS 0.5 %; HEMATOCRIT 33.4 % (37.0-47.0); LYMPHOCYTES 16.1 %; MCH 26.6 pg (26.0-34.0); MCHC 32.8 g/dL (28.0-37.0); MCV 81.1 fL (80.0-100.0); MPV 7.8 fl. (7.2-11.1); NUCLEATED RBCS 0 /100WBC; PLATELET COUNT* 254 thou/uL (150-400); POLYS 75.9 %; RBC 4.11 mil/uL (4.20-5.00); RDW-CV 24.1 % (10.5-14.5); WBC 7.9 thou/uL (4.0-11.0)
[2019-09-03 22:56] LABS: CALCIUM 9.4 mg/dL (8.5-10.1); CREATININE 0.8 mg/dL (0.6-1.3); POTASSIUM 3.9 mmol/L (3.5-5.1)
[2019-09-03 23:00] LABS: PROTIME 10.3 Seconds (9.20-11.50)
[2019-09-03 23:07] LABS: ALBUMIN 3.4 g/dL (3.4-5.0); TOTAL BILIRUBIN 0.6 mg/dL (<0.1-1.0); TOTAL PROTEIN 6.6 g/dL (6.4-8.2)
[2019-09-03 23:45] LABS: ANISOCYTOSIS 2+
[2019-09-03 23:46] LABS: MACROCYTES 1+; MICROCYTES 1+; OVALOCYTES Occasional; POIKILOCYTOSIS 1+
[2019-09-03 23:58] LABS: URINE BILIRUBIN NEGATIVE (Negative); URINE BLOOD NEGATIVE (Negative); URINE CLARITY CLEAR; URINE COLOR YELLOW; URINE GLUCOSE-RANDOM NEGATIVE (Negative); URINE KETONES NEGATIVE (Negative); URINE LEUKOCYTES-REFLEX NEGATIVE (Negative); URINE NITRITE-REFLEX NEGATIVE (Negative); URINE PROTEIN NEGATIVE (Negative); URINE SPECIFIC GRAVITY 1.015 (1.005-1.030); URINE UROBILINOGEN 0.2 E.U./dl (0.2-1.0)
[2019-09-04] MEDS ORDERED: TRAMADOL 50 MG50 MG PO (01:45)
[2019-09-04 02:03] VITALS: BP 150/85
--- NOTE | 2019-09-04 14:31 | EKG ---
[place] [address] ELECTROCARDIOGRAM REPORT Name: ARTIE GRANDA Room: [facility]#: [id number] Admission: 09/03/19 Attend Phys: Discharge: 09/04/19 Date of : 68 Report #: [id number] THIS REPORT FOR: //name// [facility] ED Test Date: 2019-09-03 Test Time: 22:26:31 Pat Name: ARTIE GRANDA Department: Room: Gender: F Neonatal Intensive Care Unit Nurse: SALIMA : 1970 Requested By: Jelena Bautista Order Number: [id number] MD: Kai Licona Measurements Intervals [place] Rate: 65 P: 26 [place]: 135 QRS: -22 QRSD: 94 T: 128 QT: 408 QTc: 425 Interpretive Statements Sinus rhythm Borderline left axis deviation Anteroseptal infarct, old Repol abnrm suggests ischemia, anterolateral Baseline wander in lead(s) I,III,aVL Compared to ECG 07/23/2019 09:33:05 Myocardial infarct finding now present Early repolarization now present Possible ischemia still present Electronically Signed On 09-04-2019 14:31:04 CDT by Kai Licona [email or web address] <ELECTRONICALLY SIGNED> By: Kai Licona MD, FACC 09/04/19 1431 25 25 Kai Licona MD, FACC /EPI
== END 2019-09-04 02:05 | disposition home or self-care (01) ==
LOC: M.ERS 22:20
PROVIDERS: Emergency Medicine
DX: R07.89 Other chest pain (principal); F41.9 Anxiety disorder, unspecified; F32.9 Major depressive disorder, single episode, unspecified; I25.10 Atherosclerotic heart disease of native coronary artery without angina pectoris; Z87.891 Personal history of nicotine dependence; Z88.6 Allergy status to analgesic agent; Z88.7 Allergy status to serum and vaccine

== ENCOUNTER 2019-09-30 19:45 | Emergency (ER) | payer OTHER ==
[~2019-09-30] VITALS: Ht 160 cm; Wt 74.8 kg
[2019-09-30] MEDS ORDERED: IRON325 M1 PO (19:55)
[2019-09-30] MEDS ORDERED: ZOLOFT25 MG PO (19:55)
[2019-09-30 20:48] LABS: ABSOLUTE BASOPHILS 0.1 thou/uL (0.0-0.2); ABSOLUTE EOSINOPHILS 0.1 thou/uL (0.0-0.7); ABSOLUTE LYMPHOCYTES 1.2 thou/uL (0.8-5.3); ABSOLUTE MONOCYTES 0.6 thou/uL (0.0-1.2); BASOPHILS 0.9 %; HEMOGLOBIN 12.3 gm/dL (12.0-15.0); LYMPHOCYTES 17.8 %; MCH 28.1 pg (26.0-34.0); MCHC 33.3 g/dL (28.0-37.0); MCV 84.4 fL (80.0-100.0); MONOCYTES 8.5 %; MPV 8.2 fl. (7.2-11.1); NUCLEATED RBCS 0 /100WBC; PLATELET COUNT* 197 thou/uL (150-400); POLYS 71.8 %; RBC 4.38 mil/uL (4.20-5.00); RDW-CV 25.2 % (10.5-14.5); WBC 6.9 thou/uL (4.0-11.0)
[2019-09-30 20:57] LABS: CALCIUM 8.5 mg/dL (8.5-10.1); CREATININE 0.8 mg/dL (0.6-1.3); POTASSIUM 4.4 mmol/L (3.5-5.1)
[2019-09-30 20:59] LABS: PROTIME 10.1 Seconds (9.20-11.50)
[2019-09-30 21:08] LABS: ALBUMIN 3.3 g/dL (3.4-5.0); TOTAL BILIRUBIN 0.4 mg/dL (<0.1-1.0); TOTAL PROTEIN 6.6 g/dL (6.4-8.2)
[2019-09-30] MEDS ORDERED: PROAIR HFA8.5 GM INH (21:29)
[2019-09-30 21:42] LABS: ANISOCYTOSIS 3+; MICROCYTES 1+; OVALOCYTES Occasional; PLATELET ESTIMATE ADEQUATE
[2019-09-30 21:47] VITALS: BP 147/85
--- NOTE | 2019-10-01 10:38 | EKG ---
[place] [address] ELECTROCARDIOGRAM REPORT Name: ARTIE GRANDA 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: ONI : 1970 Requested By: Jelena Bautista Order Number: [id number] MD: Jesus Alberto Akins Measurements Intervals [place] Rate: 58 P: 21 [place]: 134 QRS: -24 QRSD: 98 T: 130 QT: 469 QTc: 461 Interpretive Statements Sinus rhythm Borderline left axis deviation Abnrm T, consider ischemia, anterolateral lds Compared to ECG 09/03/2019 22:26:31 Myocardial infarct finding no longer present Possible ischemia still present Electronically Signed On 10-01-2019 10:38:07 GROUND CREW LINES PERSON by Jesus Alberto Akins [email or web address] <ELECTRONICALLY SIGNED> By: Jesus Alberto Akins MD, FACC 10/01/19 1038 06 06 Jesus Alberto Akins MD, FAC /EPI
== END 2019-09-30 21:50 | disposition home or self-care (01) ==
LOC: M.ERS 19:45
PROVIDERS: Emergency Medicine
DX: R06.00 Dyspnea, unspecified (principal); F41.9 Anxiety disorder, unspecified; F32.9 Major depressive disorder, single episode, unspecified; I25.10 Atherosclerotic heart disease of native coronary artery without angina pectoris; Z87.891 Personal history of nicotine dependence; Z88.7 Allergy status to serum and vaccine; Z88.6 Allergy status to analgesic agent; Z98.890 Other specified postprocedural states

== ENCOUNTER 2019-10-15 08:06 | Emergency (ER) | payer OTHER ==
[~2019-10-15] VITALS: Ht 160 cm; Wt 74.8 kg
[~2019-10-15 08:06] MED LIST changes: +IRON325 M1 PO; +PROAIR HFA8.5 GM INH
[2019-10-15 08:29] LABS: URINE BILIRUBIN NEGATIVE (Negative); URINE BLOOD 3+ (Negative); URINE CLARITY CLOUDY; URINE COLOR RED; URINE GLUCOSE-RANDOM NEGATIVE (Negative); URINE KETONES NEGATIVE (Negative); URINE LEUKOCYTES-REFLEX TRACE (Negative); URINE PROTEIN 3+ (Negative)
[2019-10-15 08:31] LABS: URINE NITRITE-REFLEX POSITIVE (Negative)
[2019-10-15 08:34] LABS: CASTS None Seen /LPF (None Seen); URINE RBC >20 Many /HPF (0-2)
[2019-10-15 08:35] LABS: CRYSTALS None Seen /LPF (None Seen); URINE WBC-REFLEX 0-5 Rare /HPF (0-5)
[2019-10-15 08:36] LABS: SQUAMOUS 4-10 Moderate /LPF (0-3)
[2019-10-15 08:38] LABS: BACTERIA-REFLEX 1-9 Few /HPF (None Seen)
[2019-10-15 08:39] LABS: ABSOLUTE EOSINOPHILS 0.1 thou/uL (0.0-0.7); ABSOLUTE LYMPHOCYTES 1.5 thou/uL (0.8-5.3); ABSOLUTE MONOCYTES 0.4 thou/uL (0.0-1.2); ABSOLUTE NEUTROPHILS 4.5 thou/uL (1.6-8.1); BASOPHILS 0.7 %; EOSINOPHILS 1.3 %; HEMATOCRIT 36.7 % (37.0-47.0); HEMOGLOBIN 12.3 gm/dL (12.0-15.0); LYMPHOCYTES 22.7 %; MCH 28.2 pg (26.0-34.0); MCHC 33.6 g/dL (28.0-37.0); MCV 83.7 fL (80.0-100.0); MONOCYTES 6.5 %; MPV 7.5 fl. (7.2-11.1); NUCLEATED RBCS 0 /100WBC; PLATELET COUNT* 245 thou/uL (150-400); POLYS 68.8 %; RBC 4.38 mil/uL (4.20-5.00); RDW-CV 23.6 % (10.5-14.5); WBC 6.5 thou/uL (4.0-11.0)
[2019-10-15 08:45] LABS: CALCIUM 8.2 mg/dL (8.5-10.1); CREATININE 0.8 mg/dL (0.6-1.3); POTASSIUM 3.5 mmol/L (3.5-5.1)
[2019-10-15 08:49] LABS: ALBUMIN 3.4 g/dL (3.4-5.0); TOTAL BILIRUBIN 0.5 mg/dL (<0.1-1.0); TOTAL PROTEIN 6.8 g/dL (6.4-8.2)
[2019-10-15 09:38] LABS: ANISOCYTOSIS 2+; PLATELET ESTIMATE ADEQUATE
[2019-10-15 09:39] LABS: MICROCYTES 1+
[2019-10-15] MEDS ORDERED: ZOFRAN ODT4 MG DISSOLVE (09:45)
[2019-10-15] MEDS ORDERED: ULTRAM50 MG PO (09:45)
[2019-10-15] MEDS ORDERED: KEFLEX500 M1 PO (09:45)
[2019-10-15 10:02] VITALS: BP 137/86
== END 2019-10-15 10:05 | disposition home or self-care (01) ==
LOC: M.ERS 08:06
PROVIDERS: Emergency Medicine Emergency Medical Services
DX: N92.0 Excessive and frequent menstruation with regular cycle (principal); D25.9 Leiomyoma of uterus, unspecified; N12 Tubulo-interstitial nephritis, not specified as acute or chronic; J02.9 Acute pharyngitis, unspecified; F41.9 Anxiety disorder, unspecified; F32.9 Major depressive disorder, single episode, unspecified

== ENCOUNTER 2019-12-05 10:45 | Emergency (ER) | payer OTHER ==
[~2019-12-05] VITALS: Ht 170.2 cm; Wt 77.1 kg
[~2019-12-05 10:45] MED LIST changes: +KEFLEX500 M1 PO; +ULTRAM50 MG PO
[2019-12-05 12:01] LABS: CALCIUM 8.6 mg/dL (8.5-10.1); CREATININE 0.9 mg/dL (0.6-1.3); POTASSIUM 3.8 mmol/L (3.5-5.1)
[2019-12-05 12:03] LABS: ABSOLUTE BASOPHILS 0.1 thou/uL (0.0-0.2); ABSOLUTE EOSINOPHILS 0.1 thou/uL (0.0-0.7); ABSOLUTE LYMPHOCYTES 1.8 thou/uL (0.8-5.3); ABSOLUTE MONOCYTES 0.6 thou/uL (0.0-1.2); ABSOLUTE NEUTROPHILS 4.3 thou/uL (1.6-8.1); BASOPHILS 1.2 %; EOSINOPHILS 1.4 %; HEMOGLOBIN 13.5 gm/dL (12.0-15.0); LYMPHOCYTES 26.2 %; MCH 29.9 pg (26.0-34.0); MCHC 33.7 g/dL (28.0-37.0); MCV 88.7 fL (80.0-100.0); MONOCYTES 8.6 %; NUCLEATED RBCS 0 /100WBC; PLATELET COUNT* 232 thou/uL (150-400); POLYS 62.6 %; RBC 4.52 mil/uL (4.20-5.00); RDW-CV 15.3 % (10.5-14.5); WBC 6.9 thou/uL (4.0-11.0)
[2019-12-05 12:05] LABS: ALBUMIN 3.5 g/dL (3.4-5.0); TOTAL BILIRUBIN 0.7 mg/dL (<0.1-1.0); TOTAL PROTEIN 6.8 g/dL (6.4-8.2)
[2019-12-05 12:49] VITALS: BP 148/74
== END 2019-12-05 12:50 | disposition home or self-care (01) ==
LOC: M.ERS 10:45
PROVIDERS: Physician Assistant
DX: R51 Headache (principal); I25.10 Atherosclerotic heart disease of native coronary artery without angina pectoris; Z88.6 Allergy status to analgesic agent; Z88.7 Allergy status to serum and vaccine; Z87.891 Personal history of nicotine dependence; Z98.890 Other specified postprocedural states

== ENCOUNTER 2020-01-01 18:11 | Emergency (ER) | payer OTHER ==
[~2020-01-01] VITALS: Ht 160 cm; Wt 77.1 kg
[2020-01-01 18:56] LABS: ABSOLUTE BASOPHILS 0.1 thou/uL (0.0-0.2); ABSOLUTE EOSINOPHILS 0.1 thou/uL (0.0-0.7); ABSOLUTE LYMPHOCYTES 1.6 thou/uL (0.8-5.3); ABSOLUTE MONOCYTES 0.4 thou/uL (0.0-1.2); ABSOLUTE NEUTROPHILS 4.4 thou/uL (1.6-8.1); BASOPHILS 0.9 %; EOSINOPHILS 1.7 %; HEMATOCRIT 39.8 % (37.0-47.0); HEMOGLOBIN 13.6 gm/dL (12.0-15.0); LYMPHOCYTES 23.7 %; MCH 30.5 pg (26.0-34.0); MCHC 34.3 g/dL (28.0-37.0); MONOCYTES 6.5 %; MPV 8.2 fl. (7.2-11.1); NUCLEATED RBCS 0 /100WBC; PLATELET COUNT* 227 thou/uL (150-400); POLYS 67.2 %; RBC 4.47 mil/uL (4.20-5.00); RDW-CV 14.8 % (10.5-14.5); WBC 6.6 thou/uL (4.0-11.0)
[2020-01-01 18:56] LABS: URINE BILIRUBIN NEGATIVE (Negative); URINE BLOOD NEGATIVE (Negative); URINE CLARITY CLEAR; URINE COLOR YELLOW; URINE GLUCOSE-RANDOM NEGATIVE (Negative); URINE KETONES NEGATIVE (Negative); URINE LEUKOCYTES-REFLEX TRACE (Negative); URINE NITRITE-REFLEX NEGATIVE (Negative); URINE PROTEIN NEGATIVE (Negative); URINE SPECIFIC GRAVITY 1.025 (1.005-1.030); URINE UROBILINOGEN 0.2 E.U./dl (0.2-1.0)
[2020-01-01 19:03] LABS: BACTERIA-REFLEX 1-9 Few /HPF (None Seen); SQUAMOUS >10 Many /LPF (0-3); URINE RBC 0-2 Rare /HPF (0-2); URINE WBC-REFLEX 6-15 Few /HPF (0-5)
[2020-01-01 19:04] LABS: CASTS None Seen /LPF (None Seen); CRYSTALS None Seen /LPF (None Seen); MUCUS >6 Heavy strn/LPF (None Seen)
[2020-01-01 19:04] LABS: CALCIUM 8.4 mg/dL (8.5-10.1); CREATININE 0.6 mg/dL (0.6-1.3); MAGNESIUM 1.9 mg/dL (1.8-2.4); POTASSIUM 3.7 mmol/L (3.5-5.1)
[2020-01-01 19:06] LABS: PROTIME 10.1 Seconds (9.20-11.50)
[2020-01-01 20:40] VITALS: BP 111/66
== END 2020-01-01 20:40 | disposition home or self-care (01) ==
LOC: M.ERS 18:11
PROVIDERS: Nurse Practitioner Psychiatric/Mental Health
DX: R51 Headache (principal); F41.9 Anxiety disorder, unspecified; F32.9 Major depressive disorder, single episode, unspecified; Z98.890 Other specified postprocedural states; I25.10 Atherosclerotic heart disease of native coronary artery without angina pectoris; Z88.6 Allergy status to analgesic agent; Z88.7 Allergy status to serum and vaccine; Z87.891 Personal history of nicotine dependence

== ENCOUNTER 2020-04-07 23:14 | Emergency (ER) | payer OTHER ==
[~2020-04-07] VITALS: Ht 160 cm; Wt 73.9 kg
[2020-04-07] MEDS ORDERED: ZOLOFT25 MG PO (23:27)
[2020-04-07 23:38] LABS: ABSOLUTE LYMPHOCYTES 1.6 thou/uL (0.8-5.3); ABSOLUTE MONOCYTES 0.8 thou/uL (0.0-1.2); ABSOLUTE NEUTROPHILS 12.9 thou/uL (1.6-8.1); BASOPHILS 0.3 %; EOSINOPHILS 0.2 %; HEMATOCRIT 32.1 % (37.0-47.0); LYMPHOCYTES 10.5 %; MCH 31.8 pg (26.0-34.0); MCHC 34.4 g/dL (28.0-37.0); MCV 92.5 fL (80.0-100.0); MONOCYTES 5.3 %; MPV 8.2 fl. (7.2-11.1); NUCLEATED RBCS 0 /100WBC; PLATELET COUNT* 254 thou/uL (150-400); POLYS 83.7 %; RBC 3.47 mil/uL (4.20-5.00); RDW-CV 14.5 % (10.5-14.5); WBC 15.4 thou/uL (4.0-11.0)
[2020-04-07 23:48] LABS: CALCIUM 8.7 mg/dL (8.5-10.1); POTASSIUM 3.8 mmol/L (3.5-5.1)
[2020-04-07 23:53] LABS: ALBUMIN 3.4 g/dL (3.4-5.0); TOTAL BILIRUBIN 0.7 mg/dL (<0.1-1.0); TOTAL PROTEIN 6.4 g/dL (6.4-8.2)
[2020-04-07] MEDS ORDERED: ZOFRAN ODT4 MG DISSOLVE (23:57)
[2020-04-07] MEDS ORDERED: NORCO 5-325 TA1 EAC1 PO (23:57)
[2020-04-08 00:02] LABS: PROTIME 10.5 Seconds (9.20-11.50)
[2020-04-08 00:11] LABS: URINE BILIRUBIN NEGATIVE (Negative); URINE BLOOD 3+ (Negative); URINE CLARITY CLEAR; URINE COLOR YELLOW; URINE GLUCOSE-RANDOM NEGATIVE (Negative); URINE KETONES NEGATIVE (Negative); URINE LEUKOCYTES-REFLEX 1+ (Negative); URINE NITRITE-REFLEX NEGATIVE (Negative); URINE PROTEIN 1+ (Negative)
[2020-04-08 00:29] LABS: CASTS None Seen /LPF (None Seen); CRYSTALS None Seen /LPF (None Seen); MUCUS 0-3 Light strn/LPF (None Seen); SQUAMOUS 0-3 Few /LPF (0-3); URINE RBC >20 Many /HPF (0-2); URINE WBC-REFLEX 6-15 Few /HPF (0-5)
[2020-04-08] MEDS ORDERED: CIPROFLOXACIN500 M1 PO (00:35)
[2020-04-08 00:45] VITALS: BP 105/54
--- NOTE | 2020-04-08 11:20 | EKG ---
[place] [address] ELECTROCARDIOGRAM REPORT Name: ARTIE GRANDA JACE Room: [facility]#: [id number] Admission: 04/07/20 Attend Phys: Discharge: 04/08/20 Date of : 68 Date of Service: 04/07/20 2358 Report #: [id number] THIS REPORT FOR: //name// [facility] ED Test Date: 2020-04-07 Test Time: 23:58:14 Pat Name: ARTIE GRANDA Department: Room: Gender: Developmental Writing Instructor: : 1970 Requested By: Giorgio Gaviria Order Number: [id number] MD: Jesus Alberto Akins Measurements Intervals [place] Rate: 50 P: 15 [place]: 132 QRS: -15 QRSD: 99 T: 127 QT: 494 QTc: 451 Interpretive Statements Sinus bradycardia Borderline left axis deviation septal infarct, age indeterminate Lateral leads are also involved Baseline wander in lead(s) V5 Compared to ECG 09/30/2019 20:07:03 Possible ischemia no longer present Electronically Signed On 04-08-2020 11:18:50 CDT by Jesus Alberto Akins [email or web address] <ELECTRONICALLY SIGNED> By: Jesus Alberto Akins MD, [facility] 04/08/20 1118 2358 2358 Jesus Alberto Akins MD, [facility] /EPI
== END 2020-04-08 00:45 | disposition home or self-care (01) ==
LOC: M.ERS 23:14
PROVIDERS: Family Medicine
DX: N39.0 Urinary tract infection, site not specified (principal); I25.10 Atherosclerotic heart disease of native coronary artery without angina pectoris; F41.9 Anxiety disorder, unspecified; F32.9 Major depressive disorder, single episode, unspecified; Z98.890 Other specified postprocedural states; Z95.5 Presence of coronary angioplasty implant and graft; Z87.891 Personal history of nicotine dependence; Z88.6 Allergy status to analgesic agent; Z88.7 Allergy status to serum and vaccine

== ENCOUNTER 2020-04-17 10:03 | Emergency (ER) | payer OTHER ==
[~2020-04-17] VITALS: Ht 157.5 cm; Wt 76.2 kg
[~2020-04-17 10:03] MED LIST changes: +CIPROFLOXACIN500 M1 PO; +NORCO 5-325 TA1 EAC1 PO
[2020-04-17] MEDS ORDERED: PEPCID20 MG PO (10:20)
[2020-04-17 10:34] LABS: ABSOLUTE EOSINOPHILS 0.1 thou/uL (0.0-0.7); ABSOLUTE LYMPHOCYTES 1.5 thou/uL (0.8-5.3); ABSOLUTE MONOCYTES 0.4 thou/uL (0.0-1.2); ABSOLUTE NEUTROPHILS 5.4 thou/uL (1.6-8.1); BASOPHILS 0.4 %; EOSINOPHILS 0.9 %; HEMOGLOBIN 7.4 gm/dL (12.0-15.0); LYMPHOCYTES 20.5 %; MCH 32.3 pg (26.0-34.0); MCHC 33.6 g/dL (28.0-37.0); MCV 96.2 fL (80.0-100.0); MONOCYTES 5.8 %; MPV 7.9 fl. (7.2-11.1); NUCLEATED RBCS 0 /100WBC; PLATELET COUNT* 227 thou/uL (150-400); POLYS 72.4 %; RBC 2.28 mil/uL (4.20-5.00); RDW-CV 15.7 % (10.5-14.5); WBC 7.5 thou/uL (4.0-11.0)
[2020-04-17 10:41] LABS: CALCIUM 7.7 mg/dL (8.5-10.1); CREATININE 0.9 mg/dL (0.6-1.3); POTASSIUM 3.8 mmol/L (3.5-5.1)
[2020-04-17 10:43] LABS: APTT 23.3 Seconds (25.0-31.3); PROTIME 10.1 Seconds (9.20-11.50)
[2020-04-17 10:46] LABS: TOTAL BILIRUBIN 0.5 mg/dL (<0.1-1.0); TOTAL PROTEIN 6.1 g/dL (6.4-8.2)
[2020-04-17 12:01] VITALS: BP 127/70
--- NOTE | 2020-04-18 13:26 | EKG ---
[place] [address] ELECTROCARDIOGRAM REPORT Name: ARTIE GRANDA JACE Room: [facility]#: [id number] Admission: 04/17/20 Attend Phys: Discharge: 04/17/20 Date of : 68 Date of Service: 04/17/20 1015 Report #: [id number] THIS REPORT FOR: //name// [facility] ED Test Date: 2020-04-17 Test Time: 10:15:23 Pat Name: ARTIE GRANDA Department: Room: Gender: Public Space Attendant: [place] : 1970 Requested By: Giorgio Gaviria Order Number: [id number] MD: Kai Licona Measurements Intervals [place] Rate: 64 P: 22 [place]: 123 QRS: -13 QRSD: 97 T: 108 QT: 441 QTc: 455 Interpretive Statements Sinus rhythm Abnormal R-wave progression, early transition Abnrm T, consider ischemia, anterolateral lds Compared to ECG 04/07/2020 23:58:14 Possible ischemia now present Sinus bradycardia no longer present Myocardial infarct finding no longer present Electronically Signed On 04-18-2020 13:24:55 CDT by Kai Licona [email or web address] <ELECTRONICALLY SIGNED> By: Kai Licona MD, FACC 04/18/20 1324 1015 1015 Kai Licona MD, FAC /EPI
== END 2020-04-17 12:02 | disposition short-term general hospital (02) ==
LOC: M.ERS 10:03
PROVIDERS: Family Medicine
DX: N93.8 Other specified abnormal uterine and vaginal bleeding (principal); F41.9 Anxiety disorder, unspecified; D64.9 Anemia, unspecified; Z88.6 Allergy status to analgesic agent; Z88.8 Allergy status to other drugs, medicaments and biological substances

== ENCOUNTER 2020-04-27 20:54 | Emergency (ER) | payer OTHER ==
[~2020-04-27] VITALS: Ht 160 cm; Wt 72.6 kg
[~2020-04-27 20:54] MED LIST changes: +PEPCID20 MG PO
[2020-04-27 21:16] LABS: ABSOLUTE EOSINOPHILS 0.1 thou/uL (0.0-0.7); ABSOLUTE LYMPHOCYTES 1.5 thou/uL (0.8-5.3); ABSOLUTE MONOCYTES 0.5 thou/uL (0.0-1.2); ABSOLUTE NEUTROPHILS 4.1 thou/uL (1.6-8.1); BASOPHILS 0.6 %; EOSINOPHILS 1.1 %; HEMATOCRIT 29.4 % (37.0-47.0); HEMOGLOBIN 9.8 gm/dL (12.0-15.0); LYMPHOCYTES 24.3 %; MCH 30.8 pg (26.0-34.0); MCHC 33.2 g/dL (28.0-37.0); MCV 92.8 fL (80.0-100.0); MONOCYTES 7.6 %; MPV 7.8 fl. (7.2-11.1); NUCLEATED RBCS 0 /100WBC; PLATELET COUNT* 287 thou/uL (150-400); POLYS 66.4 %; RBC 3.17 mil/uL (4.20-5.00); RDW-CV 15.2 % (10.5-14.5); WBC 6.1 thou/uL (4.0-11.0)
[2020-04-27 21:24] LABS: CALCIUM 8.6 mg/dL (8.5-10.1)
[2020-04-27 21:26] LABS: PROTIME 10.2 Seconds (9.20-11.50)
[2020-04-27 21:35] LABS: ALBUMIN 3.4 g/dL (3.4-5.0); TOTAL BILIRUBIN 0.6 mg/dL (<0.1-1.0)
[2020-04-27] MEDS ORDERED: CARAFATE 1 GM TA1 GM PO (23:21)
[2020-04-27] MEDS ORDERED: OMEPRAZOLE40 MG PO (23:21)
[2020-04-27 23:49] VITALS: BP 125/70
--- NOTE | 2020-04-28 16:52 | EKG ---
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 [place]: [place] : 1970 Requested By: Gertrudis Yarbrough Order Number: [id number] MD: Marcus Guthrie Measurements Intervals [place] Rate: 71 P: 20 [place]: 121 QRS: -16 QRSD: 105 T: 121 QT: 372 QTc: 405 Interpretive Statements Sinus rhythm Borderline left axis deviation Abnrm T, consider ischemia, anterolateral lds Compared to ECG 04/17/2020 10:15:23 No significant changes Electronically Signed On 04-28-2020 16:51:27 CDT by Marcus Guthrie [email or web address] <ELECTRONICALLY SIGNED> By: Marcus Guthrie MD, [facility] 04/28/20 1651 57 57 Marcus Guthrie MD, [facility] /EPI
== END 2020-04-27 23:51 | disposition home or self-care (01) ==
LOC: M.ERS 20:54
PROVIDERS: Personal Emergency Response Attendant
DX: K21.0 Gastro-esophageal reflux disease with esophagitis (principal); F41.9 Anxiety disorder, unspecified; I25.10 Atherosclerotic heart disease of native coronary artery without angina pectoris; Z88.6 Allergy status to analgesic agent; Z88.7 Allergy status to serum and vaccine; Z79.82 Long term (current) use of aspirin

== ENCOUNTER 2020-05-04 06:21 | Emergency (ER) | payer OTHER ==
[~2020-05-04 06:21] MED LIST changes: +CARAFATE 1 GM TA1 GM PO; +OMEPRAZOLE40 MG PO
[2020-05-04] MEDS ORDERED: ZOLOFT25 MG PO (08:27)
[2020-05-04 08:33] LABS: ABSOLUTE LYMPHOCYTES 1.6 thou/uL (0.8-5.3); ABSOLUTE MONOCYTES 0.6 thou/uL (0.0-1.2); BASOPHILS 0.5 %; EOSINOPHILS 0.4 %; HEMATOCRIT 26.1 % (37.0-47.0); HEMOGLOBIN 8.6 gm/dL (12.0-15.0); LYMPHOCYTES 17.5 %; MCH 29.8 pg (26.0-34.0); MCHC 32.8 g/dL (28.0-37.0); MCV 90.8 fL (80.0-100.0); MONOCYTES 6.8 %; MPV 8.2 fl. (7.2-11.1); NUCLEATED RBCS 0 /100WBC; PLATELET COUNT* 278 thou/uL (150-400); POLYS 74.8 %; RBC 2.88 mil/uL (4.20-5.00); RDW-CV 16.5 % (10.5-14.5); WBC 9.3 thou/uL (4.0-11.0)
[2020-05-04 08:49] LABS: ALBUMIN 3.5 g/dL (3.4-5.0); CALCIUM 8.3 mg/dL (8.5-10.1); CREATININE 1.1 mg/dL (0.6-1.3); POTASSIUM 3.6 mmol/L (3.5-5.1); TOTAL BILIRUBIN 0.5 mg/dL (<0.1-1.0); TOTAL PROTEIN 6.9 g/dL (6.4-8.2)
[2020-05-04 10:10] VITALS: BP 109/62
== END 2020-05-04 10:15 | disposition home or self-care (01) ==
LOC: M.ERS 06:21
PROVIDERS: Family Medicine
DX: J02.9 Acute pharyngitis, unspecified (principal); R05 Cough; I25.10 Atherosclerotic heart disease of native coronary artery without angina pectoris; Z87.891 Personal history of nicotine dependence; Z88.6 Allergy status to analgesic agent; Z88.7 Allergy status to serum and vaccine; Z79.82 Long term (current) use of aspirin; Z79.899 Other long term (current) drug therapy; Z98.890 Other specified postprocedural states; Z95.5 Presence of coronary angioplasty implant and graft

== ENCOUNTER 2020-10-10 14:49 | Emergency (ER) | payer OTHER ==
[~2020-10-10] VITALS: Ht 160 cm; Wt 77.1 kg
[2020-10-10 15:32] LABS: ABSOLUTE EOSINOPHILS 0.1 thou/uL (0.0-0.7); ABSOLUTE LYMPHOCYTES 1.2 thou/uL (0.8-5.3); ABSOLUTE MONOCYTES 0.4 thou/uL (0.0-1.2); BASOPHILS 0.3 %; HEMATOCRIT 34.6 % (37.0-47.0); HEMOGLOBIN 11.4 gm/dL (12.0-15.0); LYMPHOCYTES 17.4 %; MCH 26.4 pg (26.0-34.0); MCHC 32.8 g/dL (28.0-37.0); MCV 80.4 fL (80.0-100.0); MONOCYTES 5.8 %; MPV 7.5 fl. (7.2-11.1); NUCLEATED RBCS 0 /100WBC; PLATELET COUNT* 234 thou/uL (150-400); POLYS 75.5 %; RDW-CV 22.3 % (10.5-14.5); WBC 6.7 thou/uL (4.0-11.0)
[2020-10-10 15:41] LABS: CALCIUM 8.3 mg/dL (8.5-10.1); CREATININE 0.8 mg/dL (0.6-1.3); POTASSIUM 3.8 mmol/L (3.5-5.1)
[2020-10-10 15:43] LABS: URINE BILIRUBIN NEGATIVE (Negative); URINE BLOOD NEGATIVE (Negative); URINE CLARITY CLEAR; URINE COLOR YELLOW; URINE GLUCOSE-RANDOM NEGATIVE (Negative); URINE KETONES NEGATIVE (Negative); URINE LEUKOCYTES-REFLEX NEGATIVE (Negative); URINE NITRITE-REFLEX NEGATIVE (Negative); URINE PROTEIN NEGATIVE (Negative); URINE UROBILINOGEN 0.2 E.U./dl (0.2-1.0)
[2020-10-10 15:45] LABS: ALBUMIN 3.4 g/dL (3.4-5.0); TOTAL BILIRUBIN 0.6 mg/dL (<0.1-1.0); TOTAL PROTEIN 6.6 g/dL (6.4-8.2)
[2020-10-10 17:20] LABS: ANISOCYTOSIS 2+; MICROCYTES 1+; PLATELET ESTIMATE ADEQUATE
[2020-10-10] MEDS ORDERED: NORCO 5-325 TA1 EAC2 PO (19:30)
[2020-10-10 19:43] VITALS: BP 118/58
== END 2020-10-10 19:43 | disposition home or self-care (01) ==
LOC: M.ERS 14:49
PROVIDERS: Nurse Practitioner Family
DX: N83.202 Unspecified ovarian cyst, left side (principal); F41.9 Anxiety disorder, unspecified; F32.9 Major depressive disorder, single episode, unspecified; I25.10 Atherosclerotic heart disease of native coronary artery without angina pectoris; Z20.828 Contact with and (suspected) exposure to other viral communicable diseases; Z90.711 Acquired absence of uterus with remaining cervical stump; Z90.49 Acquired absence of other specified parts of digestive tract; Z98.890 Other specified postprocedural states; Z87.891 Personal history of nicotine dependence; Z95.5 Presence of coronary angioplasty implant and graft; Z79.899 Other long term (current) drug therapy; Z79.82 Long term (current) use of aspirin; Z88.8 Allergy status to other drugs, medicaments and biological substances; Z88.7 Allergy status to serum and vaccine

== ENCOUNTER 2020-12-08 13:57 | Emergency (ER) | payer OTHER ==
[~2020-12-08] VITALS: Ht 160 cm; Wt 74.8 kg
[~2020-12-08 13:57] MED LIST changes: +NORCO 5-325 TA1 EAC2 PO
[2020-12-08] MEDS ORDERED: HYDROCODON-ACE1 EAC7 PO (14:52)
[2020-12-08 15:30] VITALS: BP 154/70
== END 2020-12-08 15:31 | disposition home or self-care (01) ==
LOC: M.ERS 13:57
DX: S80.12XA Contusion of left lower leg, initial encounter (principal); I25.10 Atherosclerotic heart disease of native coronary artery without angina pectoris; Z87.891 Personal history of nicotine dependence; Z79.82 Long term (current) use of aspirin; Z79.899 Other long term (current) drug therapy; Z88.8 Allergy status to other drugs, medicaments and biological substances; W01.0XXA Fall on same level from slipping, tripping and stumbling without subsequent striking against object, initial encounter; Y93.89 Activity, other specified; Y92.89 Other specified places as the place of occurrence of the external cause; Y99.8 Other external cause status

== ENCOUNTER 2021-01-13 11:14 | Emergency (ER) | payer OTHER ==
[~2021-01-13] VITALS: Ht 160 cm; Wt 74.8 kg
[~2021-01-13 11:14] MED LIST changes: +HYDROCODON-ACE1 EAC7 PO
[2021-01-13 11:56] LABS: HEMOGLOBIN 13.9 gm/dL (12.0-15.0)
[2021-01-13 11:58] LABS: ABSOLUTE BASOPHILS 0.1 thou/uL (0.0-0.2); ABSOLUTE EOSINOPHILS 0.1 thou/uL (0.0-0.7); ABSOLUTE LYMPHOCYTES 1.8 thou/uL (0.8-5.3); ABSOLUTE MONOCYTES 0.5 thou/uL (0.0-1.2); ABSOLUTE NEUTROPHILS 5.2 thou/uL (1.6-8.1); MCHC 33.3 g/dL (28.0-37.0); POLYS 67.9 %; WBC 7.6 thou/uL (4.0-11.0)
[2021-01-13 12:04] LABS: BASOPHILS 0.9 %; HEMATOCRIT 41.8 % (37.0-47.0); LYMPHOCYTES 23.7 %; MCH 29.1 pg (26.0-34.0); MCV 87.5 fL (80.0-100.0); MONOCYTES 6.5 %; MPV 7.7 fl. (7.2-11.1); NUCLEATED RBCS 0 /100WBC; PLATELET COUNT* 237 thou/uL (150-400); RBC 4.78 mil/uL (4.20-5.00); RDW-CV 16.4 % (10.5-14.5)
[2021-01-13 12:11] LABS: CALCIUM 9.3 mg/dL (8.5-10.1); CREATININE 1.1 mg/dL (0.6-1.3); POTASSIUM 4.2 mmol/L (3.5-5.1)
[2021-01-13 12:13] LABS: APTT 25.9 Seconds (25.0-31.3); PROTIME 10.3 Seconds (9.20-11.50)
[2021-01-13 12:23] LABS: ALBUMIN 3.4 g/dL (3.4-5.0); CK-MB MASS 0.7 ng/mL (<0.5-3.6); MAGNESIUM 2.3 mg/dL (1.8-2.4); TOTAL BILIRUBIN 0.7 mg/dL (<0.1-1.0); TOTAL PROTEIN 6.8 g/dL (6.4-8.2)
[2021-01-13 12:40] VITALS: BP 140/68
--- NOTE | 2021-01-14 12:20 | EKG ---
[place] [address] ELECTROCARDIOGRAM REPORT Name: ARTIE GRANDA JACE Room: [facility]#: [id number] Admission: 01/13/21 Attend Phys: Discharge: 01/13/21 Date of : 68 Date of Service: 01/13/21 1133 Report #: [id number] THIS REPORT FOR: //name// [facility] ED Test Date: 2021-01-13 Test Time: 11:33:54 Pat Name: ARTIE GRANDA Department: Room: Gender: Recreation Superintendent: CCD : 1970 Requested By: Giorgio Gaviria Order Number: [id number] MD: Kai Licona Measurements Intervals [place] Rate: 49 P: 26 OK: 129 QRS: -25 QRSD: 110 T: 136 QT: 495 QTc: 447 Interpretive Statements Sinus bradycardia Borderline left axis deviation Abnrm T, probable ischemia, anterolateral lds Compared to ECG 04/27/2020 20:58:10 Sinus rhythm no longer present Possible ischemia still present Electronically Signed On 01-14-2021 12:20:27 PROCESSING REP by Kai Licona [email or web address] <ELECTRONICALLY SIGNED> By: Kai Licona MD, FACC 01/14/21 1220 1133 1133 Kai Licona MD, [facility] /EPI
== END 2021-01-13 12:41 | disposition home or self-care (01) ==
LOC: M.ERS 11:14
PROVIDERS: Family Medicine
DX: R07.89 Other chest pain (principal); I25.10 Atherosclerotic heart disease of native coronary artery without angina pectoris; Z87.891 Personal history of nicotine dependence; Z88.6 Allergy status to analgesic agent; Z88.8 Allergy status to other drugs, medicaments and biological substances; Z98.890 Other specified postprocedural states

== ENCOUNTER 2021-02-27 19:19 | Emergency (ER) | payer OTHER ==
[~2021-02-27] VITALS: Ht 160 cm; Wt 77.1 kg
[2021-02-27] MEDS ORDERED: AMOXICILLIN 50500 M1 PO (20:08)
[2021-02-27] MEDS ORDERED: FLONASE 0.05%50 MCG NARES (20:09)
[2021-02-27 20:34] VITALS: BP 166/82
--- NOTE | 2021-02-28 11:12 | EKG ---
[place] [address] ELECTROCARDIOGRAM REPORT Name: ARTIE GRANDA JACE Room: [facility]#: [id number] Admission: 02/27/21 Attend Phys: Discharge: 02/27/21 Date of : 68 Date of Service: 02/27/212007 Report #: [id number] THIS REPORT FOR: //name// [facility] ED Test Date: 2021-02-27 Test Time: 20:08:31 Pat Name: ARTIE GRANDA Department: Room: Gender: Rn Document Improvement Specialist: [place] : 1970 Requested By: Jelena Bautista Order Number: [id number] MD: Jesus Alberto Akins Measurements Intervals [facility] Rate: 55 P: 30 IN: 144 QRS: -24 QRSD: 99 T: 137 QT: 489 QTc: 468 Interpretive Statements Sinus bradycardia LVH w/ repol abnormalities, possible ischemia Compared to ECG 01/13/2021 11:33:54 Possible ischemia still present Electronically Signed On 02-28-2021 11:12:33 CDT by Jesus Alberto Akins [email or web address] <ELECTRONICALLY SIGNED> By: Jesus Alberto Akins MD, FACC 02/28/21 1112 07 07 Jesus Alberto Akins MD, FAC /EPI
== END 2021-02-27 20:34 | disposition home or self-care (01) ==
LOC: M.ERS 19:19
DX: H92.01 Otalgia, right ear (principal); I25.10 Atherosclerotic heart disease of native coronary artery without angina pectoris; Z88.7 Allergy status to serum and vaccine; Z88.6 Allergy status to analgesic agent; Z87.891 Personal history of nicotine dependence; Z98.890 Other specified postprocedural states; Z90.710 Acquired absence of both cervix and uterus

== ENCOUNTER 2021-06-10 11:52 | Emergency (ER) | payer OTHER ==
[~2021-06-10] VITALS: Ht 160 cm; Wt 77.1 kg
[~2021-06-10 11:52] MED LIST changes: +FLONASE 0.05%50 MCG NARES
[2021-06-10 12:50] LABS: URINE BILIRUBIN NEGATIVE (Negative); URINE BLOOD NEGATIVE (Negative); URINE CLARITY CLEAR; URINE COLOR YELLOW; URINE GLUCOSE-RANDOM NEGATIVE (Negative); URINE KETONES NEGATIVE (Negative); URINE LEUKOCYTES-REFLEX NEGATIVE (Negative); URINE NITRITE-REFLEX NEGATIVE (Negative); URINE PROTEIN NEGATIVE (Negative); URINE UROBILINOGEN 0.2 E.U./dl (0.2-1.0)
[2021-06-10 12:57] LABS: ABSOLUTE BASOPHILS 0.1 thou/uL (0.0-0.2); ABSOLUTE EOSINOPHILS 0.1 thou/uL (0.0-0.7); ABSOLUTE LYMPHOCYTES 1.6 thou/uL (0.8-5.3); ABSOLUTE MONOCYTES 0.6 thou/uL (0.0-1.2); ABSOLUTE NEUTROPHILS 6.4 thou/uL (1.6-8.1); BASOPHILS 0.9 %; EOSINOPHILS 0.8 %; HEMATOCRIT 39.4 % (37.0-47.0); HEMOGLOBIN 13.4 gm/dL (12.0-15.0); LYMPHOCYTES 18.1 %; MCHC 33.9 g/dL (28.0-37.0); MCV 91.3 fL (80.0-100.0); MONOCYTES 6.4 %; MPV 7.8 fl. (7.2-11.1); NUCLEATED RBCS 0 /100WBC; PLATELET COUNT* 211 thou/uL (150-400); POLYS 73.8 %; RBC 4.32 mil/uL (4.20-5.00); WBC 8.6 thou/uL (4.0-11.0)
[2021-06-10 13:09] LABS: CALCIUM 8.8 mg/dL (8.5-10.1); CREATININE 0.8 mg/dL (0.6-1.3); POTASSIUM 4.3 mmol/L (3.5-5.1)
[2021-06-10 13:13] LABS: ALBUMIN 3.6 g/dL (3.4-5.0); TOTAL BILIRUBIN 0.7 mg/dL (<0.1-1.0)
[2021-06-10] MEDS ORDERED: HYDROCODON-ACE1 EA11 PO ×2 (14:36→14:46)
[2021-06-10 14:44] VITALS: BP 111/65
[2021-06-10] MEDS ORDERED: NORCO5 PO (15:01)
== END 2021-06-10 14:47 | disposition home or self-care (01) ==
LOC: M.ERS 11:52
PROVIDERS: Nurse Practitioner Family
DX: N83.8 Other noninflammatory disorders of ovary, fallopian tube and broad ligament (principal); I25.10 Atherosclerotic heart disease of native coronary artery without angina pectoris; Z87.891 Personal history of nicotine dependence; Z88.7 Allergy status to serum and vaccine; Z90.710 Acquired absence of both cervix and uterus; Z98.890 Other specified postprocedural states

== ENCOUNTER 2021-07-18 20:39 | Emergency (ER) | payer OTHER ==
[~2021-07-18] VITALS: Ht 160 cm; Wt 77.1 kg
[~2021-07-18 20:39] MED LIST changes: +HYDROCODON-ACE1 EA11 PO; +NORCO5 PO
[2021-07-18] MEDS ORDERED: METFORMIN HCL500 M3 PO (20:48)
[2021-07-18 22:07] LABS: ABSOLUTE BASOPHILS 0.1 thou/uL (0.0-0.2); ABSOLUTE LYMPHOCYTES 1.3 thou/uL (0.8-5.3); ABSOLUTE MONOCYTES 0.4 thou/uL (0.0-1.2); ABSOLUTE NEUTROPHILS 6.2 thou/uL (1.6-8.1); BASOPHILS 0.7 %; EOSINOPHILS 0.6 %; HEMATOCRIT 39.9 % (37.0-47.0); HEMOGLOBIN 13.1 gm/dL (12.0-15.0); LYMPHOCYTES 16.4 %; MCH 29.8 pg (26.0-34.0); MCHC 32.9 g/dL (28.0-37.0); MCV 90.6 fL (80.0-100.0); MONOCYTES 5.5 %; MPV 7.7 fl. (7.2-11.1); NUCLEATED RBCS 0 /100WBC; PLATELET COUNT* 220 thou/uL (150-400); POLYS 76.8 %; RDW-CV 14.2 % (10.5-14.5); WBC 8.1 thou/uL (4.0-11.0)
[2021-07-18 22:11] LABS: CALCIUM 8.6 mg/dL (8.5-10.1); CREATININE 0.9 mg/dL (0.6-1.3); POTASSIUM 3.4 mmol/L (3.5-5.1)
[2021-07-18 22:22] LABS: ALBUMIN 3.6 g/dL (3.4-5.0); MAGNESIUM 2.1 mg/dL (1.8-2.4); TOTAL BILIRUBIN 0.5 mg/dL (<0.1-1.0)
[2021-07-19 00:38] VITALS: BP 160/91
--- NOTE | 2021-07-19 09:58 | EKG ---
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: : 1970 Requested By: Jelena Bautista Order Number: [id number] MD: Kai Licona Measurements Intervals [place] Rate: 69 P: 31 MI: 131 QRS: -22 QRSD: 99 T: 130 QT: 452 QTc: 485 Interpretive Statements Sinus rhythm Borderline left axis deviation Abnormal R-wave progression, early transition Repol abnrm suggests ischemia, anterolateral Compared to ECG 02/27/2021 20:08:31 Early repolarization now present Sinus bradycardia no longer present Possible ischemia still present Electronically Signed On 07-19-2021 9:57:59 CDT by Kai Licona [email or web address] <ELECTRONICALLY SIGNED> By: Kai Licona MD, FACC 07/19/21956 28 28 Kai Licona MD, FAC /EPI
== END 2021-07-19 00:38 | disposition home or self-care (01) ==
LOC: M.ERS 20:39
PROVIDERS: Emergency Medicine
DX: R06.00 Dyspnea, unspecified (principal); Z20.822 Contact with and (suspected) exposure to COVID-19; F17.210 Nicotine dependence, cigarettes, uncomplicated; Z90.710 Acquired absence of both cervix and uterus; Z98.890 Other specified postprocedural states; Z88.7 Allergy status to serum and vaccine

== ENCOUNTER 2021-07-23 07:16 | Inpatient (IN) | payer OTHER ==
[~2021-07-23] VITALS: Ht 160 cm; Wt 90.5 kg
[~2021-07-23 07:16] MED LIST changes: +METFORMIN HCL500 M3 PO
[2021-07-23 07:22] VITALS: BP 169/79
[2021-07-23 07:39] LABS: ABSOLUTE BASOPHILS 0.1 thou/uL (0.0-0.2); ABSOLUTE EOSINOPHILS 0.1 thou/uL (0.0-0.7); ABSOLUTE LYMPHOCYTES 1.9 thou/uL (0.8-5.3); ABSOLUTE MONOCYTES 0.5 thou/uL (0.0-1.2); ABSOLUTE NEUTROPHILS 4.1 thou/uL (1.6-8.1); EOSINOPHILS 1.4 %; HEMATOCRIT 39.4 % (37.0-47.0); LYMPHOCYTES 28.3 %; MCH 29.8 pg (26.0-34.0); MCV 90.4 fL (80.0-100.0); MONOCYTES 7.9 %; MPV 7.3 fl. (7.2-11.1); NUCLEATED RBCS 0 /100WBC; PLATELET COUNT* 221 thou/uL (150-400); POLYS 61.4 %; RBC 4.36 mil/uL (4.20-5.00); RDW-CV 14.3 % (10.5-14.5); WBC 6.7 thou/uL (4.0-11.0)
[2021-07-23 07:53] LABS: CALCIUM 8.7 mg/dL (8.5-10.1); CREATININE 0.8 mg/dL (0.6-1.3); POTASSIUM 3.7 mmol/L (3.5-5.1)
[2021-07-23 08:03] LABS: ALBUMIN 3.3 g/dL (3.4-5.0); TOTAL BILIRUBIN 0.4 mg/dL (<0.1-1.0); TOTAL PROTEIN 6.5 g/dL (6.4-8.2)
--- NOTE | 2021-07-23 12:29 | EKG ---
[place] [address] ELECTROCARDIOGRAM REPORT Name: ARTIE GRANDA JACE Room: [place] [address] ADM IN [facility].#: [id number] Admission: 07/23/21 Attend Phys: Alex Thrasher, Discharge: Date of : 68 Date of Service: 07/23/21 0719 Report #: [id number] THIS REPORT FOR: //name// [facility] ED Test Date: 2021-07-23 Test Time: 07:19:02 Pat Name: ARTIE GRANDA Department: Room: [facility] Gender: F Certified Marine Mechanic: NAREN : 1970 Requested By: Jd Sow Order Number: [id number] MD: Kai Licona Measurements Intervals [place] Rate: 59 P: 9 ND: 153 QRS: -22 QRSD: 109 T: 139 QT: 438 QTc: 434 Interpretive Statements Sinus rhythm Borderline left axis deviation Repol abnrm suggests ischemia, anterolateral Compared to ECG 07/18/2021 21:29:33 No significant changes Electronically Signed On 07-23-2021 12:28:51 CDT by Kai Licona [email or web address] <ELECTRONICALLY SIGNED> By: Kai Licona MD, FAC 07/23/21 1228 8 8 Kai Licona MD, FAC /EPI
[2021-07-23 12:30] VITALS: BP 132/70
--- NOTE | 2021-07-23 12:30 | EKG ---
[place] [address] ELECTROCARDIOGRAM REPORT Name: ARTIE GRANDA AJCE Room: [place] [address] ADM IN ..#: [id number] Admission: 07/23/21 Attend Phys: Alex Thrasher, Discharge: Date of : 68 Date of Service: 07/23/21 1029 Report #: [id number] THIS REPORT FOR: //name// [facility] ED Test Date: 2021-07-23 Test Time: 10:29:44 Pat Name: ARTIE GRANDA Department: Room: [place] [address] Gender: F Multimedia Authoring Specialist: NAREN : 1970 Requested By: Jd Sow Order Number: [id number] MD: Kai Licona Measurements Intervals [place] Rate: 57 P: 25 SD: 147 QRS: -22 QRSD: 94 T: 139 QT: 474 QTc: 462 Interpretive Statements Sinus rhythm LVH with secondary repolarization abnormality Compared to ECG 07/23/2021 07:19:02 Left ventricular hypertrophy now present Possible ischemia no longer present Electronically Signed On 07-23-2021 12:30:22 CDT by Kai Licona [email or web address] <ELECTRONICALLY SIGNED> By: Kai Licona MD, FACC 07/23/21 1230 1029 1029 Kai Licona MD, FAC /EPI
--- NOTE | 2021-07-23 12:37 | NUR ---
ASSUMED PT CARE AT THIS TIME
[2021-07-23 16:22] VITALS: BP 100/50; BP 132/70
[2021-07-23 21:11] VITALS: BP 105/52
[2021-07-23 21:35] VITALS: BP 145/81
--- NOTE | 2021-07-23 23:00 | NUR ---
PT HAVING MIDSTENAL CHEST PAIN, NON RADIATING, NO OTHER SYMPTOMS. NTG GIVEN SL. STATED IT GAVE HER LAZO BUT CP REMAINS. PAGED CARDIOLOGY WITHOUT RETURN CALL, CHEST PAIN RESOLVED. WILL CONT TO MONITOR.
[2021-07-24] VITALS (15 sets, daily range): BP systolic 127–146; BP diastolic 53–90
[2021-07-24 05:24] LABS: ABSOLUTE EOSINOPHILS 0.1 thou/uL (0.0-0.7); ABSOLUTE LYMPHOCYTES 1.5 thou/uL (0.8-5.3); ABSOLUTE MONOCYTES 0.5 thou/uL (0.0-1.2); ABSOLUTE NEUTROPHILS 5.4 thou/uL (1.6-8.1); BASOPHILS 0.5 %; EOSINOPHILS 0.7 %; HEMATOCRIT 37.7 % (37.0-47.0); HEMOGLOBIN 12.6 gm/dL (12.0-15.0); MCH 30.1 pg (26.0-34.0); MCHC 33.4 g/dL (28.0-37.0); MCV 90.3 fL (80.0-100.0); MONOCYTES 6.1 %; MPV 7.9 fl. (7.2-11.1); NUCLEATED RBCS 0 /100WBC; PLATELET COUNT* 224 thou/uL (150-400); POLYS 72.7 %; RBC 4.18 mil/uL (4.20-5.00); RDW-CV 14.5 % (10.5-14.5); WBC 7.5 thou/uL (4.0-11.0)
[2021-07-24 05:29] LABS: CALCIUM 8.5 mg/dL (8.5-10.1); CREATININE 0.8 mg/dL (0.6-1.3); POTASSIUM 3.8 mmol/L (3.5-5.1)
[2021-07-24 05:32] LABS: CHOLESTEROL 161 mg/dL (<200); HDL CHOLESTEROL 47 mg/dL (>40); LDL CHOLESTEROL 83 mg/dL (<100); TC:HDL 3.4 Ratio (Not establshd); TRIGLYCERIDE 155 mg/dL (<150); VLDL 31 mg/dL (<40)
[2021-07-24 05:40] LABS: SERUM ASSESSMENT Clear
--- NOTE | 2021-07-24 06:26 | NUR ---
NPO [place] FOR CARDIAC CATH THIS AM. EPISODE OF MIDSTERNAL CHEST PAIN X1 TONIGHT, RELIEVED WITH TIME. GAIT STEADY TO AND FROM BR. ASSESSMENT UNCHANGED. HS GOALS OF REST AND SAFETY ACHIEVED.
--- NOTE | 2021-07-24 14:40 | NUR ---
Pt is A&O. Resides at home with . Independent. No DME. No hx of HH or SNF. Pt is patient pay, Med Assist to screen for [facility]. Cards following, plan heart cath today. Anticipate dc tomorrow.
--- NOTE | 2021-07-24 17:20 | NUR ---
1650-TO PAPER LATCHER VIA BED
[2021-07-24] MEDS ORDERED: CRESTOR40 MG PO (18:16)
--- NOTE | 2021-07-24 22:18 | NUR ---
ASSUMED PT CARE AT 193. ASSESSMENT COMPLETED CHARTED. ABLE TO MAKE NEEDS KNOWN. UP AD SANG IN ROOM ONCE OFF BEDREST AT 2129. NO C/O PAIN OR DISCOMFORT. PT RIGHT GROIN C/D/I WITH NO HEMATOMA. EDUCATED PT AND REVIEWED DISCHARGE INSTRUCTIONS AFTER OFF BEDREST. PT GOT DRESSED AND REMOVED IV AND HEART MONITOR. PT LEFT IN WHEELCHAIR TO HUSBANDS CAR AT 2212 WITH ALL BELONGINGS.
--- NOTE | 2021-07-25 06:49 | CON ---
[address] [address] CONSULTATION Name: ARTIE GRANDA Room: [address] IN M.R.#: [id number] Admission: 07/23/21 Attend Phys: Alex Thrasher MD Discharge: 07/24/21 Date of : 68 Report #: [id number] THIS REPORT FOR: cc: FAM - No family physician/PCP FAM - No family physician/PCP Kai Licona MD [facility] ~ cc: Marcus Guthrie MD [facility] DATE OF CONSULTATION: 07/23/2021 CARDIOLOGY CONSULTATION INDICATION: Chest pain and coronary artery disease. HISTORY OF PRESENT ILLNESS: The patient is a pleasant 50-year-old white female with a history of coronary artery disease. She presents with left substernal chest discomfort without radiation. She describes some stomach upset, but no vomiting. EKG shows sinus rhythm with diffuse T-wave inversion in the anterolateral leads. She does have some dyspnea on exertion and shortness of breath. She is without other cardiac complaint at this time. In 2017, she had percutaneous coronary intervention with stenting to the right coronary artery, diagonal branch of the LAD and circumflex coronary arteries on separate occasions in May, June and August. In 02/2019, she presented again with chest pain and had recurrent stenoses with additional drug-eluting stents placed to the second obtuse marginal branch of the circumflex coronary artery and the mid left anterior descending coronary artery. ALLERGIES: TYLENOL AND MEASLES VACCINE. HOME MEDICATIONS: Aspirin 81 mg daily, atorvastatin 80 mg at bedtime, Flonase nasal spray daily, hydrocodone/acetaminophen 5/300 one tablet q.6 hours p.r.n., metformin 500 mg daily, metoprolol tartrate 12.5 mg b.i.d., sertraline 25 mg daily, Brilinta 90 mg b.i.d. SOCIAL HISTORY: The patient has a history of tobacco use, but quit over 8 years ago. She does not drink alcohol. FAMILY HISTORY: Positive for coronary artery disease. PAST MEDICAL HISTORY: Coronary artery disease, hyperlipidemia and hypertension. PAST SURGICAL HISTORY: and history of DVT. REVIEW OF SYSTEMS: A 14-point review positive for chest discomfort[place] [address] CONSULTATION Name: ARTIE GRANDA Room: [address]#: [id number] Admission: 07/23/21 Attend Phys: Alex Thrasher MD Discharge: 07/24/21 Date of : 68 Report #: [id number] exertion as well as shortness of breath. She also has joint pain and lightheadedness and dizziness. Otherwise, 14-point review of systems was unremarkable. PHYSICAL EXAMINATION: VITAL SIGNS: Blood pressure 112/76, pulse is 57 and regular. GENERAL: This is a pleasant lady in no distress. Mood and affect appropriate. HEENT: Extraocular muscles intact. Mucous membranes are moist. NECK: Shows no jugular venous distention. There are no carotid bruits. CHEST: Reveals clear lung nelson without wheezes or rales. CARDIAC: Reveals a regular rhythm without gallop or murmur. ABDOMEN: Reveals normal bowel sounds. The abdomen is soft and nontender. EXTREMITIES: Shows no edema. SKIN: Warm and dry. LABORATORY DATA: A 12-lead EKG shows sinus rhythm with diffuse T-wave inversion. Labs are reviewed. Electrolytes are within normal limits. High sensitivity troponin is 9. IMPRESSION AND RECOMMENDATIONS: 1. Chest pain consistent with unstable angina. We will proceed with cardiac catheterization. Further intervention pending those results. 2. Coronary artery disease. Continue home regimen outlined above. 3. Hypertension. Continue home regimen. Her blood pressure is presently stable. 4. Hyperlipidemia. We will check fasting lipid profile. Continue current statin agent. <ELECTRONICALLY SIGNED> By: Kai Licona MD, FACC 07/25/21 0649 1125 1212Kai Licona MD, FACC /nt
--- NOTE | 2021-07-25 06:49 | CON ---
[address] [address] CONSULTATION Name: ARTIE GRANDA Room: [address] IN M.R.#: [id number] Admission: 07/23/21 Attend Phys: Alex Thrasher MD Discharge: 07/24/21 Date of : 68 Report #: [id number] THIS REPORT FOR: cc: FAM - No family physician/PCP FAM - No family physician/PCP Kai Licona MD [facility] ~ cc: Marcus Guthrie MD [facility] DATE OF CONSULTATION: 07/23/2021 INCOMPLETE DICTATION CARDIOLOGY CONSULTATION INDICATION: Chest pain and abnormal EKG. HISTORY OF PRESENT ILLNESS: The patient is a very pleasant 50-year-old white female with history of coronary artery disease. She presents with left substernal chest discomfort without radiation. She has some mild stomach upset, but no vomiting. Denies of any symptoms at this time. Initial troponin was unremarkable. A 12-lead EKG shows sinus rhythm with significant P wave inversion in anterolateral leads with dyspnea on exertion and shortness of breath. She is without other cardiac complaint at this time. In 2018, she had DICTATION ENDS AT THIS POINT <ELECTRONICALLY SIGNED> By: Kai Licona MD, FACC 07/25/21 0649 0953 1058[facility] Nicole Licona MD, FACC /nt
[2021-07-25 07:09] LABS: GLYCOHEMOGLOBIN (HGB A1C) 6.4 % (4.8-5.6)
--- NOTE | 2021-07-26 09:09 | CARD ---
[address] [address] CARDIAC CATH REPORT Name: ARTIE GRANDA Room: [address] IN ..#: [id number] Admission: 07/23/21 Attend Phys: Alex Thrasher MD Discharge: 07/24/21 Date of : 68 Report #: [id number] THIS REPORT FOR: cc: FAM - No family physician/PCP FAM - No family physician/PCP Kai Licona MD [facility] ~ APPROVED REPORT Study performed: 07/24/2021 16:32:18 Patient Details Patient Status: In-Patient Room #: The patient is a 50 year-old female Event Personnel Erika Townsend Reeves, Adam RTR ScrTejas kohler Janel RN RN, Kai Licona Food Service Clerk Procedures Performed Art Access - R femoral artery* Left Heart Cath w/or w/o Coronaries [id number] [facility] Procedure Narrative The patient was brought urgently to the Cardiac Catheterization Laboratory and was prepped and draped in a sterile manner. The right femoral was infiltrated with 2% Lidocaine subcutaneous anesthesia. The right femoral accessed via ultrasound guidance. A Ackley 6 FR sheath was inserted into the right femoral artery. Coronary angiography was performed using coronary diagnostic catheters. The right coronary system was accessed and visualized with a Diagnostic catheter. The left coronary system was accessed and visualized with a Diagnostic catheter. The left ventricle was accessed and visualized with a Diagnostic catheter. Left ventricular/Aortic Valve gradient assessed via catheter pullback. Closure device was deployed with a Fr Mynx. The patient tolerated the procedure well and there were no complications associated with the procedure. There was no hematoma. Intraoperative Conscious Sedation Sedation start time: 170 Case end Time: 1715 Fentanyl 25 mcg Versed --1 mg Contrast Type and Amount: Visipaque [address] [place] [address] CARDIAC CATH REPORT Name: ARTIE GRANDA Room: [address]#: [id number] Admission: 07/23/21 Attend Phys: Alex Thrasher MD Discharge: 07/24/21 Date of : 68 Report #: [id number] Diagnostic Cath Left Main The left anterior ascending coronary artery is normal and bifurcates into a left anterior descending and circumflex coronary artery. LAD The LAD appears widely patent. There is a widely patent stent in the mid LAD. Diagonal 1 A first diagonal is small and minimally plaque. Diagonal 2 The second diagonal branch is a large and branch vessel with a proximal stent that is widely patent. Circumflex The circumflex coronary artery has a widely patent stent in its proximal and distal portion. OM1 A first obtuse marginal branch is jailed but widely patent. OM2 A second obtuse marginal branch is a large branch vessel with a proximal stent that is widely patent. OM3 A third obtuse marginal branch is normal. Right Coronary The right coronary artery has a widely patent stents from the ostium proximal. The remainder the vessel is free of significant disease. R PDA A right PDA is free of significant disease. RPLV A moderate-sized branch right posterior lateral branch is free of significant disease. Left Ventriculography The left ventricle is normal in size with normal contractility. The left ventricular ejection fraction is estimated to be 65%. Hemodynamics The aortic pressure is 167/84 mmHg with a mean of 114 mmHg. The left ventricular pressure is 156/13 mmHg with a mean of mmHg. The left ventricular end diastolic pressure is 14 mmHg. There was no gradient across the aortic valve upon pullback. Conclusion 1. Widely patent stents noted in the right coronary artery, circumflex artery, obtuse marginal branch, diagonal branch and left anterior descending coronary artery. 2. No other occlusive stenoses noted at this time. 3. Normal left ventricular systolic function. 4. Normal left ventricular end-[place] [address] CARDIAC CATH REPORT Name: ARTIE GRANDA Room: [address] IN [facility]#: [id number] Admission: 07/23/21 Attend Phys: Alex Thrasher MD Discharge: 07/24/21 Date of : 68 Report #: [id number] Recommendations 1. Continue aggressive risk modification and medical management. <ELECTRONICALLY SIGNED> By: Kai Licona MD, [facility] 07/26/21908 8 8Kai Licona MD, ALICIA /INF
== END 2021-07-24 22:13 | disposition home or self-care (01) | DRG 287 ==
LOC: M.ERS 07:16 → M.TBA-ER 10:10 → M.2W 21:10
PROVIDERS: Emergency Medicine Emergency Medical Services; Internal Medicine Cardiovascular Disease; ADMIT Internal Medicine; ATTEND Internal Medicine
PROC: B215YZZ Fluoroscopy of Left Heart using Other Contrast (ICD-10-PCS; principal; 2021-07-24)
PROC: B211YZZ Fluoroscopy of Multiple Coronary Arteries using Other Contrast (ICD-10-PCS; principal; 2021-07-24)
PROC: 4A023N7 Measurement of Cardiac Sampling and Pressure, Left Heart, Percutaneous Approach (ICD-10-PCS; principal; 2021-07-24)
DX: I25.110 Atherosclerotic heart disease of native coronary artery with unstable angina pectoris (principal); F41.9 Anxiety disorder, unspecified; F32.9 Major depressive disorder, single episode, unspecified; I73.9 Peripheral vascular disease, unspecified; I25.10 Atherosclerotic heart disease of native coronary artery without angina pectoris; R19.09 Other intra-abdominal and pelvic swelling, mass and lump; E78.5 Hyperlipidemia, unspecified; Z20.822 Contact with and (suspected) exposure to COVID-19; Z98.891 History of uterine scar from previous surgery; Z95.5 Presence of coronary angioplasty implant and graft; Z87.891 Personal history of nicotine dependence; Z90.710 Acquired absence of both cervix and uterus; Z79.899 Other long term (current) drug therapy; Z79.51 Long term (current) use of inhaled steroids; Z88.7 Allergy status to serum and vaccine; Z88.6 Allergy status to analgesic agent; Z79.82 Long term (current) use of aspirin; Z83.438 Family history of other disorder of lipoprotein metabolism and other lipidemia; Z82.49 Family history of ischemic heart disease and other diseases of the circulatory system

== ENCOUNTER 2021-07-28 11:11 | Emergency (ER) | payer OTHER ==
[~2021-07-28] VITALS: Ht 160 cm; Wt 81.7 kg
[~2021-07-28 11:11] MED LIST changes: +CRESTOR40 MG PO
[2021-07-28] MEDS ORDERED: FLEXERIL PO (14:43)
[2021-07-28 14:56] VITALS: BP 135/74
== END 2021-07-28 14:56 | disposition home or self-care (01) ==
LOC: M.ERS 11:11
DX: R10.31 Right lower quadrant pain (principal); M79.89 Other specified soft tissue disorders; M79.604 Pain in right leg; F41.9 Anxiety disorder, unspecified; F32.9 Major depressive disorder, single episode, unspecified; I25.10 Atherosclerotic heart disease of native coronary artery without angina pectoris; I73.9 Peripheral vascular disease, unspecified; Z90.711 Acquired absence of uterus with remaining cervical stump; Z87.442 Personal history of urinary calculi; Z87.42 Personal history of other diseases of the female genital tract; Z95.5 Presence of coronary angioplasty implant and graft; Z79.899 Other long term (current) drug therapy; Z79.82 Long term (current) use of aspirin; Z88.7 Allergy status to serum and vaccine; Z87.891 Personal history of nicotine dependence